=== PATIENT | female | born 1955 | race Caucasian/White ===

== ENCOUNTER 2016-10-18 21:14 | Emergency (ER) | payer OTHER ==
[2016-10-18] MEDS ORDERED: ONDANSETRON 4 MG/2 ML VIAL ONE (21:56)
[2016-10-18] MEDS ORDERED: ONDANSETRON 4 MG/2 ML VIAL IVP ONE (22:00)
[2016-10-18] MEDS ORDERED: NS 1,000 ML IV ONE ×2 (22:01→23:06)
[2016-10-18 22:37] LABS: % IMMATURE GRANULYOCYTES 0.3 % (0.0-1.1); ABSOLUTE IMMATURE GRANULOCYTES 0.03 10^3/uL (0.00-0.10); ADD DIFF? NO; ADD MORPH? NO; ADD SCAN? NO; ATYPICAL LYMPHOCYTE FLAG 20 (0-99); FRAGMENT RBC FLAG 0 (0-99); HEMATOCRIT 35.8 % (38.0-47.0); HEMOGLOBIN 12.3 g/dL (12.6-16.3); LEFT SHIFT FLG 0 (0-99); LIPEMIA HEMOLYSIS FLAG 90 (0-99); MEAN CELL HEMOGLOBIN 29.8 pg (27.9-34.1); MEAN CELL HEMOGLOBIN CONCENTR. 34.4 g/dL (32.4-36.7); MEAN CELL VOLUME 86.7 fL (81.5-99.8); PLATELET CLUMPS FLAG 10 (0-99); PLATELET COUNT 245 10^3/uL (150-400); RED BLOOD CELL COUNT 4.13 10^6/uL (4.18-5.33); RED CELL DISTRIBUTION WIDTH 14.4 % (11.5-15.2)
[2016-10-18 22:48] LABS: COLOR YELLOW; LEUKOCYTE ESTERASE,URINE NEGATIVE (NEGATIVE); NITRITE,URINE NEGATIVE (NEGATIVE)
[2016-10-18 23:01] LABS: ANION GAP 7 mEq/L (8-16); CALCIUM 8.1 mg/dL (8.5-10.4); CARBON DIOXIDE 27 mEq/l (22-31); CHLORIDE 92 mEq/L (97-110); CREATININE 0.6 mg/dL (0.6-1.0); GLOMERULAR FILTRATION RATE > 60; GLUCOSE 86 mg/dL (70-100); POTASSIUM 4.6 mEq/L (3.5-5.2); SODIUM 126 mEq/L (134-144)
--- NOTE | 2016-10-18 23:32 | EDPHY ---
H & P Time Seen by Provider: 10/18/16 22:38 HPI/ROS: CHIEF COMPLAINT: Vomiting HISTORY OF PRESENT ILLNESS: 61-year-old female presents to the emergency department by private vehicle with vomiting. The patient had surgery on her right foot 2 days ago. She has hardware in place and was placed in a posterior splint. She is nonweightbearing. She has a history of chronic neck pain and takes opiate medication for this. On Wednesday, yesterday the patient had difficulty controlling her pain in her right foot. She described as severe. She increased her oxycodone and had a prescription for Dilaudid. She was using 30 mg of oxycodone and 8 mg of Dilaudid p.o. for pain. Her boyfriend who is a physician, states that earlier today she was very confused and he felt that she had too much Narcotic medication in her system. She has not had any narcotic medication since 6 o'clock this morning. This evening she began vomiting. She has eaten very little today. She has not urinated. No known fevers or chills. She feels that the pain in her right foot is well managed with her pain medication. She denies chest pain or difficulty breathing. Denies calf pain. She does have compression hose on her left lower extremity. REVIEW OF SYSTEMS: Constitutional: No fever, no chills. Eyes: No double or blurry vision. ENT: No sore throat. Respiratory: No cough, no shortness of breath. Cardiac: No chest pain. Gastrointestinal: Vomiting as above. No abdominal pain or diarrhea. Genitourinary: No dysuria. Musculoskeletal: No neck or back pain. Skin: No rashes. Neurological: No headache. Past Medical/Surgical History: Chronic neck pain, right foot surgery 2 days ago, left foot surgery 2 months ago. Social History: and lives in [place] Smoking Status: Never smoked Physical Exam: General Appearance: Alert, no distress. Eyes: Pupils equal and round. Extraocular motions are all intact. ENT: Mouth: Mucous membranes dry. Respiratory: No wheezing, rhonchi, or rales, lungs are clear to auscultation. Cardiovascular: Regular rate and rhythm. Gastrointestinal: Abdomen is soft and nontender, no masses, no rebound or guarding, bowel sounds normal. Neurological: Alert and oriented x 3, cranial nerves II through XII grossly intact Skin: Warm and dry, no rashes. Splint on the right foot was not removed. Musculoskeletal: Nontender to palpate along the cervical, thoracic or lumbar spine. Neck is supple. Extremities: Surgical pins noted in the right 2nd and 3rd toes. Ortho Glass posterior splint noted to the right foot that extends up to just below the knee. Psychiatric: Patient is oriented X 3, there is no agitation. Constitutional: Initial Vital Signs Temperature (C) 36.9 C 10/18/16 21:23 Heart Rate 73 10/18/16 21:23 Respiratory Rate 16 10/18/16 21:23 Blood Pressure 156/91 H 10/18/16 21:23 O2 Sat (%) 93 10/18/16 21:23 O2 Delivery Mode Room Air Allergies/Adverse Reactions: No Known Drug Allergies Allergy (Unknown, Verified 10/18/16 21:29) Home Medications: Medication Instructions Recorded Clonazepam 2 mg PO 08/21/14 LORazepam [Ativan (RX)] 1 mg PO 08/21/14 Levothyroxine [Synthroid 25 mcg 25 mcg PO DAILY06 08/21/14 (RX)] Spironolactone [Aldactone 25 MG 25 mg PO DAILY 08/21/14 (RX)] Venlafaxine HCl [Effexor] 25 mg PO 08/21/14 DILAUDID 10/18/16 oxyCODONE CR 15 mg PRN 10/18/16 Medical Decision Making ED Course/Re-evaluation: 61-year-old female presents with multiple episodes of vomiting this evening. She had recent right foot surgery 2 days ago and was having difficulty controlling her pain. Her boyfriend thought that she had too many narcotics on board as she was confused and very somnolent earlier today. This is now resolved. Patient received 2 L of IV normal saline as well as 4 mg of Zofran IV. She was asking for water. Her abdomen is completely benign. She has urinated twice in the emergency department. The patient was tolerating p.o. fluids. She was given 1 mg at IV Dilaudid for pain. She is comfortable being discharged home. Laboratory studies reveal sodium of 126. She has had hyponatremia in the past. She is no longer vomiting. This was discussed with Dr. Lebron, secondary supervising physician, who agrees that the patient be discharged home with close follow-up with her primary care provider to have her laboratory studies recheck. This was discussed with the patient and she verbalized understanding and agreed. Differential Diagnosis: Including but not limited to gastritis, dehydration, acute appendicitis, gastroenteritis, viral syndrome, dehydration, electrolyte abnormality - Data Points Laboratory Results: Laboratory Results 10/18/16 22:15 10/18/16 22:15 10/18/16 10/18/16 22:20 22:15 WBC 11.74 H 10^3/uL (3.80-9.50) RBC 4.13 L 10^6/uL (4.18-5.33) Hgb 12.3 L g/dL (12.6-16.3) Hct 35.8 L % (38.0-47.0) MCV 86.7 fL (81.5-99.8) MCH 29.8 pg (27.9-34.1) MCHC 34.4 g/dL (32.4-36.7) RDW 14.4 % (11.5-15.2) Plt Count 245 10^3/uL (150-400) MPV 9.0 fL (8.7-11.7) Neut % (Auto) 91.3 H % (39.3-74.2) Lymph % (Auto) 4.9 L % (15.0-45.0) [place] % (Auto) 3.1 L % (4.5-13.0) Eos % (Auto) 0.2 L % (0.6-7.6) Baso % (Auto) 0.2 L % (0.3-1.7) Nucleat RBC Rel Count 0.0 % (0.0-0.2) Absolute Neuts (auto) 10.73 H 10^3/uL (1.70-6.50) Absolute Lymphs (auto) 0.58 L 10^3/uL (1.00-3.00) Absolute Monos (auto) 0.36 10^3/uL (0.30-0.80) Absolute Eos (auto) 0.02 L 10^3/uL (0.03-0.40) Absolute Basos (auto) 0.02 10^3/uL (0.02-0.10) Absolute Nucleated RBC 0.00 10^3/uL (0-0.01) Immature Gran % 0.3 % (0.0-1.1) Immature Gran # 0.03 10^3/uL (0.00-0.10) Sodium 126 L mEq/L (134-144) Potassium 4.6 mEq/L (3.5-5.2) Chloride 92 L mEq/L (97-110) Carbon Dioxide 27 mEq/l (22-31) Anion Gap 7 mEq/L (8-16) BUN 5 L mg/dL (7-23) Creatinine 0.6 mg/dL (0.6-1.0) Estimated GFR > 60 Glucose 86 mg/dL (70-100) Calcium 8.1 L mg/dL (8.5-10.4) Urine Color YELLOW Urine Appearance CLEAR Urine pH 5.0 (5.0-7.5) Ur Specific [place] 1.013 (1.002-1.030) Urine Protein NEGATIVE (NEGATIVE) Urine Ketones TRACE H (NEGATIVE) Urine Blood NEGATIVE (NEGATIVE) Urine Nitrate NEGATIVE (NEGATIVE) Urine Bilirubin NEGATIVE (NEGATIVE) Urine Urobilinogen NEGATIVE EU (0.2-1.0) Ur Leukocyte Esterase NEGATIVE (NEGATIVE) Urine Glucose NEGATIVE (NEGATIVE) Medications Given: Discontinued Medications Hydromorphone HCl (Dilaudid) 1 mg IVP EDNOW ONE Stop: 10/18/16 23:52 Last Admin: 10/18/16 23:53 Dose: 1 mg Sodium Chloride (Ns) 1,000 mls @ 0 mls/hr IV ONCE ONE PRN Reason: Wide Open Stop: 10/18/16 22:02 Last Admin: 10/18/16 22:02 Dose: 1,000 mls Sodium Chloride (Ns) 1,000 mls @ 0 mls/hr IV ONCE ONE PRN Reason: Wide Open Stop: 10/18/16 23:07 Last Admin: 10/18/16 23:07 Dose: 1,000 mls Ondansetron HCl (Zofran) 4 mg IVP EDNOW ONE Stop: 10/18/16 22:01 Last Admin: 10/18/16 22:00 Dose: 4 mg Ondansetron HCl (Zofran Odt 4 Mg Prepack#2) 1 btl TAKEHOME EDNOW ONE Stop: 10/19/16 00:14 Last Admin: 10/19/16 00:23 Dose: 1 btl Departure - Departure Clinical Impression: Hyponatremia Vomiting Qualifiers: Vomiting type: unspecified Vomiting Intractability: non-intractable Nausea presence: with nausea Qualifier Code: (R11.2) Nausea with vomiting, unspecified Condition: Good Instructions: Ondansetron (By mouth), Hyponatremia (ED), Acute Nausea and Vomiting (ED) Additional Instructions: Clear liquids and slowly advance diet as tolerated. Continue medications as prescribed for your postoperative foot pain. Recheck your CBC and chemistries with your primary care provider this week. Return to the emergency department if you develop recurring vomiting or if you feel worse in any way. Referrals: Singh Monique MD [Primary Care Provider] - As per Instructions
[2016-10-18 23:44] VITALS: RESP 20; O2SAT 98
[2016-10-18] MEDS ORDERED: HYDROmorphONE/DILAUDID 1 MG/ML SYR ONE (23:49)
[2016-10-18] MEDS ORDERED: HYDROmorphONE/DILAUDID 1 MG/ML SYR IVP ONE (23:51)
[2016-10-19] MEDS ORDERED: ONDANSETRON 4MG PREPACK#2 BTL TAKEHOME ONE (00:13)
[2016-10-19 00:49] VITALS: BP 166/111; PULSE 74; TEMP 98.1
== END 2016-10-19 00:54 | disposition home or self-care (01) ==
DX: E87.1 Hypo-osmolality and hyponatremia (principal); R11.2 Nausea with vomiting, unspecified
CPT/HCPCS: 96374; J1170; J2405

== ENCOUNTER 2016-11-03 02:35 | Emergency (ER) | payer OTHER ==
[2016-11-03 02:43] VITALS: RESP 20
[2016-11-03] MEDS ORDERED: ONDANSETRON 4 MG/2 ML VIAL ONE (02:51)
--- NOTE | 2016-11-03 03:03 | EDPHY ---
H & P Stated Complaint: dog bite to face HPI/ROS: HPI CHIEF COMPLAINT: Dog Bite To Face. HISTORY OF PRESENT ILLNESS: This patient is a 61-year-old female significant past medical history for chronic pain, takes large amounts of oxycodone and Dilaudid and Ambien she presents emergency room after she took her nightly medications she hugged her dog and her dog bit her in the face. She sustained 2 puncture wounds to the upper lip, as well as a 5 cm horizontal laceration to the right cheek. No eye injury. She also complaining of dental pain. Denies any other injuries. Of note she did have a vasovagal episode in the waiting room of the ER. After this she was immediately brought back to ER room 3 placed on a full monitor she did receive a L of fluid and she is resting comfortably she has no complaints except for facial pain. She does take a large amount of narcotics and her Ambien most likely cause of her vagal episode in the waiting room. She did not have a head strike. Past Medical History: Recent right foot surgery, chronic neck pain, chronic opioid use and hyponatremia, hypertension Past Surgical History: Recent right foot surgery Social History: Denies use of illicit drugs however does take opiates chronically Family History: noncontributory ROS REVIEW OF SYSTEMS: A comprehensive 10 point review of systems is otherwise negative aside from elements mentioned in the history of present illness. Exam Constitutional triage nursing summary reviewed, vital signs reviewed, awake/ alert. Eyes normal conjunctivae and sclera, EOMI, PERRLA. HENT Face: 2 puncture wounds located upper left lip, also has a horizontal 5 cm right maxillary cheek laceration, also 2cm left upper lip stellate laceration , moist mucus membranes, no epistaxis, neck supple/ no meningismus, no raccoon eyes. Midface is stable, dentition: Specifically pain over the 10th tooth, Slightly loose. No malocclusion when she bites. Respiratory clear to auscultation bilaterally, normal breath sounds, no respiratory distress, no wheezing. Cardiovascular rate normal, regular rhythm, no murmur, no edema, distal pulses normal. Gastrointestinal soft, non-tender, no rebound, no guarding, normal bowel sounds, no distension, no pulsatile mass. Genitourinary no CVA tenderness. Musculoskeletal no midline vertebral tenderness, full range of motion, no calf swelling, no tenderness of extremities, no meningismus, good pulses, neurovascularly intact. Skin pink, warm, & dry, no rash, skin atraumatic. Neurologic awake, alert and oriented x 3, AAOx3, moves all 4 extremities equally, motor intact, sensory intact, CN II-XII intact, normal cerebellar, normal vision, normal speech. Psychiatric normal mood/affect. Heme/Lymph/Immune no lymphadenopathy. Differential Diagnosis: Includes but is not limited to in a particular order, dog bite to face, facial laceration, multiple puncture wounds, dental fracture, avulsed tooth. Medical Decision Making: Patient here in emergency room received a 1L of fluid and Zofran after she had a vagal event in the waiting room I did numb up her large right maxillary facial laceration we did discuss risk versus benefit of having this close given that to dog bite however patient is requesting that it becomes closed due to the cosmetic issue in how large it is. She understands by closing this laceration on her face that is at further risk of infection. I will start her on Augmentin for this. Her tetanus shot is up-to-date. She will be given a prescription for Augmentin at home to prevent infection from dog bite. She will need to have her sutures removed in 7 days. As for the other 2 puncture sites on her face they will be left open however they will be cleaned here in the emergency room. I do also recommend she follows up with her dentist to evaluate for dental fracture of tooth 10. Re-evaluation: Laceration Repair Procedure: Verbal Consent was obtained, Under sterile conditions, The patient had lidocaine with epinephrine used approximately 7ccs to local anesthetize the Right max Horizontal 5cm Laceration. The wound was copiously irrigated with sterile fluid, the wound was explored for foreign bodies there were none visualized, the wound was explored with a sterile glove to the base. There are no deep structures involved, including no arterial injury. 7 interrupted 6.0 Prolene Sutures were placed in this patient's laceration. She had good close approximation of the wound edges. She Tolerated this well. Laceration Repair Procedure: Verbal Consent was obtained, Under sterile conditions, The patient had lidocaine with epinephrine used approximately 3ccs to local anesthetize the left upper lip Stelate 2cm Laceration. The wound was copiously irrigated with sterile fluid, the wound was explored for foreign bodies there were none visualized, the wound was explored with a sterile glove to the base. There are no deep structures involved, including no arterial injury. 2 interrupted Sutures 6.O Prolene sutures were placed in this patient' s laceration. She had good close approximation of the wound edges. She Tolerated this well. Again I went over strict return precautions with her and her significant other. They understand to return immediately to emergency room if they see any signs of infection this includes redness, drainage, swelling, pus, fever. Please complete Augmentin as Prescribed. Sutures out in 7 days. Source: Patient - Personal History Current Tetanus Diphtheria and Acellular Pertussis (TDAP): Yes - Medical/Surgical History Hx Asthma: No Hx Chronic Respiratory Disease: No Hx Diabetes: No Hx Cardiac Disease: No Hx Renal Disease: No Hx Cirrhosis: No Hx Alcoholism: No Hx HIV/AIDS: No Hx Splenectomy or Spleen Trauma: No Other PMH: medical SAH, anxiety, depression, hypothyroid. tonsillectomy, bilateral knee replacement, right rotator cuff repair, L5 SI spinal fusion, L4 L % spinal fusion, bunionectomy, TMJ surgery - Social History Smoking Status: Never smoked Constitutional: Initial Vital Signs Temperature (C) 37 C 11/03/16 02:41 Heart Rate 104 H 11/03/16 02:41 Respiratory Rate 20 11/03/16 02:41 Blood Pressure 85/68 L 11/03/16 02:41 O2 Sat (%) 94 11/03/16 02:41 O2 Delivery Mode Room Air Allergies/Adverse Reactions: No Known Drug Allergies Allergy (Unknown, Verified 11/03/16 02:39) Home Medications: Medication Instructions Recorded Clonazepam 2 mg PO 08/21/14 LORazepam [Ativan (RX)] 1 mg PO 08/21/14 Levothyroxine [Synthroid 25 mcg 25 mcg PO DAILY06 08/21/14 (RX)] Spironolactone [Aldactone 25 MG 25 mg PO DAILY 08/21/14 (RX)] Venlafaxine HCl [Effexor] 25 mg PO 08/21/14 DILAUDID 10/18/16 oxyCODONE CR 15 mg PRN 10/18/16 Amoxicillin/Clavulanate Pot 875 mg PO BID #14 tab 11/03/16 [Augmentin 875 MG TAB (*)] Medical Decision Making - Data Points Laboratory Results: Laboratory Results 11/03/16 02:50 11/03/16 02:50 Sodium 137 mEq/L (134-144) Potassium 3.9 mEq/L (3.5-5.2) Chloride 100 mEq/L (97-110) Carbon Dioxide 23 mEq/l (22-31) Anion Gap 14 mEq/L (8-16) BUN 8 mg/dL (7-23) Creatinine 0.9 mg/dL (0.6-1.0) Estimated GFR > 60 Glucose 95 mg/dL (70-100) Calcium 9.1 mg/dL (8.5-10.4) Medications Given: Discontinued Medications Sodium Chloride (Ns) 1,000 mls @ 0 mls/hr IV ONCE ONE PRN Reason: Wide Open Stop: 11/03/16 03:09 Last Admin: 11/03/16 03:09 Dose: 1,000 mls Ondansetron HCl (Zofran) 4 mg IVP EDNOW ONE Stop: 11/03/16 03:09 Last Admin: 11/03/16 03:09 Dose: 4 mg Departure - Departure Disposition: Home, Routine, Self-Care Clinical Impression: Laceration Dog bite Qualifiers: Encounter type: initial encounter Qualifier Code: (W54.0XXA) Bitten by dog, initial encounter Condition: Good Instructions: Animal Bite (ED), Laceration (ED), Care For Your Stitches (ED) Additional Instructions: 1. Please keep the wound clean, dry, protected. 2. you may get warm soapy water on this. 3. You have [address] These will need to be removed in 7-8 days. 4. please monitor this closely for infection please complete her antibiotics as prescribed. 5. If you see swelling, redness, drainage, pus, or fever return immediately to the ER for evaluation of your wound. Referrals: Singh Monique MD [Primary Care Provider] - As per Instructions Prescriptions: Amoxicillin/Clavulanate Pot [Augmentin 875 MG TAB (*)] 875 mg PO BID #14 tab
[2016-11-03] MEDS ORDERED: NS 1,000 ML IV ONE (03:08)
[2016-11-03] MEDS ORDERED: ONDANSETRON 4 MG/2 ML VIAL IVP ONE (03:08)
[2016-11-03] MEDS ORDERED: AMOXICILLIN/CLAVULANATE POT 875/125 MG TAB PO ONE (03:31)
[2016-11-03 03:42] LABS: ANION GAP 14 mEq/L (8-16); CALCIUM 9.1 mg/dL (8.5-10.4); CARBON DIOXIDE 23 mEq/l (22-31); CHLORIDE 100 mEq/L (97-110); CREATININE 0.9 mg/dL (0.6-1.0); GLOMERULAR FILTRATION RATE > 60; GLUCOSE 95 mg/dL (70-100); POTASSIUM 3.9 mEq/L (3.5-5.2); SODIUM 137 mEq/L (134-144)
[2016-11-03 04:33] VITALS: BP 107/71; PULSE 66; TEMP 97.3; O2SAT 97
== END 2016-11-03 04:31 | disposition home or self-care (01) ==
PROC: 0CQ0XZZ Repair Upper Lip, External Approach (ICD-10-PCS; principal; 2016-11-03)
DX: S01.411A Laceration without foreign body of right cheek and temporomandibular area, initial encounter (principal); S01.511A Laceration without foreign body of lip, initial encounter; I10 Essential (primary) hypertension; W54.0XXA Bitten by dog, initial encounter
CPT/HCPCS: 96374; J2405

== ENCOUNTER → 2016-11-23 | Outpatient (CLI) | payer OTHER ==
--- NOTE | 2016-11-23 15:57 | DX ---
3 Views Right Foot: Reason for examination: Postoperative follow up to surgery in September. Findings: Postoperative changes of bunionectomy are seen with screws traversing osteotomies of the pr oximal phalanx of the right first toe and the distal end of the first metatarsal. Also plate and mult iple screws transfix the proximal end of the first metatarsal. Orthopedic wires traverse the second a nd third toes and screws are seen in the heads of the second and third metatarsals. No postoperative complication is seen. A splint is in place. Impression: Postoperative changes of the right foot with no immediate complication identified.
== END ==
LOC: BMCIMAGING 13:49
DX: Z09 Encounter for follow-up examination after completed treatment for conditions other than malignant neoplasm (principal); M20.11 Hallux valgus (acquired), right foot; M20.41 Other hammer toe(s) (acquired), right foot; S93.104D Unspecified dislocation of right toe(s), subsequent encounter; M25.374 Other instability, right foot

== ENCOUNTER 2017-04-17 13:50 | Inpatient (IN) | payer OTHER ==
[~2017-04-17 13:50] MED LIST: GADOBUTROL 10 ML VIAL IVP ONE
[2017-04-17] MEDS ORDERED: NS 1,500 ML IV ONE (15:06)
--- NOTE | 2017-04-17 15:09 | EDPHY ---
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 She is sent here from the orthopedist's office after an MRI today that revealed diskitis of help to-L3. She has a history of a lumbar fusion of L4-5 10 years ago. She is followed by the orthopedist office with [facility] now. She saw the PA there this week who ordered an MRI for pain that has been increasing over the last 6 weeks. No fevers. She has had some radiculopathy down the right leg. No weakness numbness or bowel or bladder abnormalities. She has had night sweats but states that this has been present for 10 years because of her hormones. She has not had any recent infections but her does remember slight dysuria about 2 months ago. She does not have any immuno compromising conditions. No recent surgeries or procedures. REVIEW OF SYSTEMS: Constitutional: denies: chills, fever, recent illness, recent injury EENTM: denies: blurred vision, double vision, nose congestion Respiratory: denies: cough, shortness of breath Cardiac: denies: chest pain, irregular heart rate, lightheadedness, palpitations Gastrointestinal/Abdominal: denies: abdominal pain, diarrhea, nausea, vomiting, blood streaked stools Genitourinary: denies: dysuria, frequency, hematuria, pain Musculoskeletal: See HPI Skin: denies: lesions, rash, jaundice, bruising Neurological: denies: headache, numbness, paresthesia, tingling, dizziness, weakness Hematologic/Lymphatic: denies: blood clots, easy bleeding, easy bruising Immunologic/allergic: denies: HIV/AIDS, transplant EXAM: GENERAL: Well-appearing, well-nourished and in no acute distress. HEAD: Atraumatic, normocephalic. EYES: Pupils equal round and reactive to light, extraocular movements intact, sclera anicteric, conjunctiva are normal. ENT: TMs normal, nares patent, oropharynx clear without exudates. Moist mucous membranes. NECK: Normal range of motion, supple without lymphadenopathy or JVD. LUNGS: Breath sounds clear to auscultation bilaterally and equal. No wheezes rales or rhonchi. HEART: Regular rate and rhythm without murmurs, rubs or gallops. ABDOMEN: Soft, nontender, normoactive bowel sounds. No guarding, no rebound. No masses appreciated. BACK: Pain in the upper lumbar region, no tenderness. Pain radiates down her right posterior leg to the mid thigh. No weakness or numbness. No erythema or swelling. EXTREMITIES: Normal range of motion, no pitting or edema. No clubbing or cyanosis. NEUROLOGICAL: Cranial nerves II through XII grossly intact. Normal speech, normal gait. 5/5 strength, normal movement in all extremities, normal sensation PSYCH: Normal mood, normal affect. SKIN: Warm, dry, normal turgor, no visible rashes or lesions. Source: Patient, Family Exam Limitations: No limitations - Personal History Current Tetanus/Diphtheria Vaccine: Yes - Medical/Surgical History Hx Asthma: No Hx Chronic Respiratory Disease: No Hx Diabetes: No Hx Cardiac Disease: No Hx Renal Disease: No Hx Cirrhosis: No Hx Alcoholism: No Hx HIV/AIDS: No Hx Splenectomy or Spleen Trauma: No Other PMH: medical SAH, anxiety, depression, hypothyroid. tonsillectomy, bilateral knee replacement, right rotator cuff repair, L5 SI spinal fusion, L4 L % spinal fusion, bunionectomy, TMJ surgery - Family History Significant Family History: No pertinent family hx - Social History Smoking Status: Never smoked Alcohol Use: Sober Drug Use: None Constitutional: Initial Vital Signs Temperature (C) 36.7 C 04/17/17 13:55 Heart Rate 73 04/17/17 13:55 Respiratory Rate 17 04/17/17 13:55 Blood Pressure 138/91 H 04/17/17 13:55 O2 Sat (%) 96 04/17/17 13:55 O2 Delivery Mode Room Air O2 (L/minute) 2 Allergies/Adverse Reactions: No Known Drug Allergies Allergy (Unknown, Verified 04/17/17 13:53) Home Medications: Medication Instructions Recorded LORazepam [Ativan 2 mg tab] 2 mg PO HS 04/17/17 Levothyroxine [Synthroid 25 mcg 25 mcg PO DAILY06 04/17/17 (*)] QUEtiapine FUMARATE [Seroquel 25 25 mg PO HS 04/17/17 mg (*)] Venlafaxine Xr [Effexor Xr 75MG 150 mg PO DAILY 04/17/17 (*)] oxyCODONE IR [Oxycodone Ir (*)] 15 mg PO Q6H PRN 04/17/17 Medical Decision Making ED Course/Re-evaluation: 3:10 p.m. I discussed the case with Dr. palencia from Infectious Disease. She recommends blood cultures but not initiating antibiotics at this time. She recommends biopsy by interventional radiology are [facility]. She does not recommend lumbar puncture. She will consult. 3:15 p.m. I discussed the case with Dr. Hartley who agrees the above plan. He and his practice do not work with spines. 3:25 p.m. I discussed the case with Dr. Ancelmo Beltrán who will admit to the medical service. We are awaiting callback from interventional Radiology. For p.m. I discussed the case with Dr. Wilner Rodriguez. He will perform interventional Radiology tomorrow and asked that we keep her NPO at midnight. Differential Diagnosis: Partial list of the Differential diagnosis considered include but were not limited to; diskitis, degenerative disc disease, neuropathy and although unlikely based on the history and physical exam, I also considered abscess, tumor. - Data Points Laboratory Results: Laboratory Results 04/17/17 15:15 04/17/17 15:15 04/17/17 15:15 C-Reactive Protein < 5.0 mg/L mg/L (<10.0) Microbiology Results: MICROBIOLOGY 04/17/17 15:15 Blood Blood Culture - Preliminary Medications Given: Discontinued Medications Sodium Chloride (Ns) 1,500 mls @ 3,000 mls/hr 30 ml/kg infuse over 30 min ( 1500 ml) IV EDNOW ONE PRN Reason: Protocol Stop: 04/17/17 15:35 Last Admin: 04/17/17 15:23 Dose: 1,500 mls Oxycodone HCl (Oxycodone Ir) 15 mg PO ONCE ONE Stop: 04/17/17 15:53 Last Admin: 04/17/17 15:56 Dose: 15 mg Oxycodone HCl (Oxycodone Ir) 15 mg PO Q4HRS PRN PRN Reason: Pain, Severe Able to Take PO Stop: 04/27/17 17:04 Last Admin: 04/18/17 10:26 Dose: 15 mg Quetiapine Fumarate (Seroquel) 25 mg PO [facility] Stop: 10/14/17 20:59 Last Admin: 04/17/17 22:36 Dose: 25 mg Departure - Departure Disposition: [facility] Clinical Impression: Diskitis Qualifiers: Spinal region: lumbar Qualified Code(s): M46.46 - Discitis, unspecified, lumbar region Condition: Fair
[2017-04-17 15:36] LABS: % IMMATURE GRANULYOCYTES 0.4 % (0.0-1.1); ABSOLUTE IMMATURE GRANULOCYTES 0.02 10^3/uL (0.00-0.10); ADD DIFF? NO; ADD MORPH? NO; ADD SCAN? NO; ATYPICAL LYMPHOCYTE FLAG 20 (0-99); FRAGMENT RBC FLAG 0 (0-99); HEMATOCRIT 42.1 % (38.0-47.0); HEMOGLOBIN 14.2 g/dL (12.6-16.3); LEFT SHIFT FLG 0 (0-99); LIPEMIA HEMOLYSIS FLAG 80 (0-99); MEAN CELL HEMOGLOBIN 29.1 pg (27.9-34.1); MEAN CELL HEMOGLOBIN CONCENTR. 33.7 g/dL (32.4-36.7); MEAN CELL VOLUME 86.3 fL (81.5-99.8); MEAN PLATELET VOLUME 8.7 fL (8.7-11.7); PLATELET CLUMPS FLAG 0 (0-99); PLATELET COUNT 318 10^3/uL (150-400); RED BLOOD CELL COUNT 4.88 10^6/uL (4.18-5.33); RED CELL DISTRIBUTION WIDTH 14.5 % (11.5-15.2)
[2017-04-17 15:42] LABS: APTT 28.4 SEC (23.0-38.0); INR 0.99 (0.83-1.16)
[2017-04-17 15:47] LABS: ANION GAP 11 mEq/L (8-16); BILIRUBIN,TOTAL 0.9 mg/dL (0.1-1.4); CALCIUM 9.2 mg/dL (8.5-10.4); CARBON DIOXIDE 23 mEq/l (22-31); CHLORIDE 98 mEq/L (97-110); CREATININE 0.8 mg/dL (0.6-1.0); GLOMERULAR FILTRATION RATE > 60; GLUCOSE 82 mg/dL (70-100); POTASSIUM 4.7 mEq/L (3.5-5.2); SODIUM 132 mEq/L (134-144)
[2017-04-17] MEDS ORDERED: oxyCODONE IR 15 MG TAB PO ONE (15:52)
[2017-04-17] MEDS ORDERED: oxyCODONE IR 5 MG TAB ONE (15:53)
[2017-04-17] MEDS ORDERED: ONDANSETRON DISINTEGRATING 4 MG TAB PO PRN (17:02)
[2017-04-17] MEDS ORDERED: ACETAMINOPHEN 325 MG TAB PO PRN (17:02)
[2017-04-17] MEDS ORDERED: IBUPROFEN 200 MG TAB PO PRN (17:02)
[2017-04-17] MEDS ORDERED: ONDANSETRON 4 MG/2 ML VIAL IVP PRN (17:02)
--- NOTE | 2017-04-17 18:05 | GHP ---
[f rep st] HISTORY AND PHYSICAL DATE OF ADMISSION: 04/17/2017 HISTORY OF PRESENT ILLNESS: The patient is a pleasant 62-year-old female with minimal past medical history other than remote lumbar spine fusion at L4-L5,g who has been seeing Dr. Hartley as an out patient for increasing back pain as well as some pain radiating around her hip. It has been going o n about 6 weeks. She had an outpatient MRI which showed diskitis and she was referred to the emerge ncy department for further evaluation. She has had some night sweats but she attributes this to ongoing menopausal symptoms. She has not h ad fever or chills. She does not use IV drugs. She went to the dentist a couple of months ago for a routine cleaning. She does state that she has exposed roots. She has not had nausea, vomiting, f ever, or chills. She has a fair amount of pain in her back, has been getting worse. It has been fuchs mpering her lifestyle. She has been taking, sounds like Tylenol ibuprofen for it. After driving, she has a lot of pain around the proximal thigh. She has not had urinary or bowel in continence. No other B symptoms. No weight loss. REVIEW OF SYSTEMS: Complete 10-point review of systems conducted, negative except as noted in the H PI. PAST MEDICAL HISTORY: 1. Lumbar spine disease. 2. Depression. ALLERGIES: No known drug allergies. HOME MEDICATIONS: Effexor, levothyroxine, lorazepam, spironolactone, venlafaxine. She takes spiron olactone for acne. SOCIAL HISTORY: She drinks a couple glasses of wine in the evenings. She does not smoke cigarettes . FAMILY HISTORY: Reviewed and unremarkable. PHYSICAL EXAMINATION: VITAL SIGNS: Temp 36.6, blood pressure 154/101, pulse 59, breathing 12 times a minute, 94% on room air. GENERAL: No acute distress. Sclerae anicteric. Oropharynx clear. Mu cous membranes are moist. NECK: Supple without lymphadenopathy or JVD. LUNGS: Clear to auscultat ion bilaterally. HEART: S1, S2. ABDOMEN: Soft, nontender, nondistended. LOWER EXTREMITIES: No edema. Calves nontender. SKIN: Without rash. NEUROLOGIC: Grossly nonfocal. I did not do a stra ight leg raise, it was positive in the emergency department. LABS: White count 5, hematocrit 42, platelets 318,000. Coags normal. Venous lactate 0.8. Sodium 132 potassium 4.7, chloride 98, bicarb 22, BUN 14, creatinine 0.8, glucose 82. I discussed the case with Dr. Rajat Schaeffer. Lumbar spine MRI shows suspicious for diskitis at the L2-L3 level with right L2-L3 foraminal encroachment secondary to enhancing disk protrusion. ASSESSMENT/PLAN: 62-year-old female with possible diskitis. 1. Diskitis: The MRI is suggestive of diskitis. She really does not have any infectious symptoms. The plan now is blood cultures have been drawn. She is going to get a biopsy today, and will reac t to that information as it becomes available. It is probably reasonable to have a neurosurgeon see her while she is in the hospital. As of Wednesday at 5 p.m., I have not called them. 2. Hyponatremia: This is mild. 3. Daily wine use: I have written her for a glass of wine at night if she is interested. 4. Prophylaxis: Pharmacologic prophylaxis indicated if in the hospital for a prolonged period of t yvonne. At this point in time, will just go with SCDs. 5. Pain: Will give her p.r.n. oxycodone. 6. Depression: Will continue her medicines once they have been reconciled. /[id number]/MODL
[2017-04-17 18:27] LABS: COLOR PALE YELLOW; LEUKOCYTE ESTERASE,URINE NEGATIVE (NEGATIVE); NITRITE,URINE NEGATIVE (NEGATIVE)
[2017-04-17] MEDS: WHITE WINE 120 ML BOTTLE PO SCH (18:48)
[2017-04-17] MEDS ORDERED: NS 1,000 ML IV SCH (20:30)
[2017-04-17] MEDS ORDERED: QUEtiapine FUMARATE 25 MG TAB PO SCH (21:00)
[2017-04-17] MEDS ORDERED: LORAZEPAM 2 MG PO SCH (21:00)
[2017-04-17] MEDS: oxyCODONE IR 15 MG TAB PO PRN (21:47)
[2017-04-17] MEDS: LORazepam 1 MG TAB PO SCH (21:48)
[2017-04-17] MEDS: QUEtiapine FUMARATE 25 MG TAB PO SCH (22:59)
[2017-04-18] MEDS: LEVOTHYROXINE 25 MCG TAB PO SCH (05:50)
[2017-04-18] MEDS ORDERED: LEVOTHYROXINE 25 MCG TAB PO SCH (06:00)
[2017-04-18] MEDS: oxyCODONE IR 15 MG TAB PO PRN ×3 (10:26→21:32)
[2017-04-18 10:32] LABS: HEMATOCRIT 43.8 % (38.0-47.0)
[2017-04-18] MEDS ORDERED: fentaNYL 100 MCG/2 ML INJ ONE ×2 (10:42→11:41)
[2017-04-18] MEDS ORDERED: MIDAZOLAM 2 MG/2 ML VIAL ONE (10:43)
[2017-04-18 10:51] LABS: ALBUMIN 4.1 g/dL (3.5-5.0); BILIRUBIN,TOTAL 0.9 mg/dL (0.1-1.4); BILIRUBIN-CONJUGATED 0.4 mg/dL (0.0-0.5); BILIRUBIN-UNCONJUGATED 0.5 mg/dL (0.0-1.1); TOTAL PROTEIN 6.6 g/dL (6.3-8.2)
[2017-04-18] MEDS: VENLAFAXINE XR 75 MG CAP PO SCH ×3 (10:52→18:12)
[2017-04-18] MEDS ORDERED: LIDOCAINE 1% 300 MG/30 ML SDV ONE (10:54)
[2017-04-18] MEDS ORDERED: IOPAMIDOL (ISOVUE-M 300) 15 ML VIAL ONE (10:54)
--- NOTE | 2017-04-18 11:27 | GCON ---
[f rep st] CONSULTATION INFECTIOUS DISEASE CONSULTATION DATE OF CONSULTATION: 04/18/2017 REFERRING PHYSICIAN: Ryan Beltrán MD REASON FOR CONSULTATION: Possible diskitis. CHIEF COMPLAINT: Back pain. HISTORY OF PRESENT ILLNESS: This is a 62-year-old female with a past medical history sign ificant for hypothyroidism, anxiety, depression, previous history of lumbar spine surgery, who has b een complaining of back pain for around 8 weeks. She has intermittent chronic back pain from her pr evious surgeries; however, she felt that this was different. It was more bandlike across her lower back. She states she denies any fevers or shaking chills at the time or onset of this, as well as p rior to the onset of her back pain. She said once she started to get back pain she saw a physical t herapist, who started to do some dry needling in her buttocks region, which did not help. She denie s any numbness or tingling down her legs, although she does have pain that radiates to both her fron t thighs, mostly right greater than left. She denies any muscle weakness or bowel or bladder incont inence. She denies any previous history of skin infections. She did have dysuria about 1-1/2 to 2 months ago, for which she immediately took Pyridium and her symptoms resolved. She did not take ant ibiotics at that time. She denies any CVA tenderness. She denies any recent bouts of diarrheal ill ness or vomiting. She does not drink raw milk or unpasteurized cheeses. She has no close contact w ith farm animals. She did acquire a new puppy about 5 weeks ago that occasionally does nip at her, but she states that she has not had any wounds from that. Her boyfriend has a cat whose nails are a ll trimmed down, so she reports no scratches or bites from the cat. Back in September of 2016 she traveled to [facility] for 1 week just the week prior to [place]. She st ates that she was in a resort-like accommodation, was not ill while she was there or upon return. S he did not do any water sports where she sustained any injuries. When she returned in October, she ended up having a redo foot surgery, where she has some hardware in place. She denies any postopera tive infections related to that. Also in October she ended up having a dog bite to her cheek and li p. She had a dog that was a rescue dog. She believes it had all its vaccinations. She was seen in the ER and had sutures placed at the time. She denies any infections related to that. She had a d ental cleaning done earlier this year as well. She states that she is always usually given amoxicil shital before she has dental cleaning or dental work done. She does state that over the past month she has noticed a small brown spot on her upper right gum line that she thought was initially stuck lucas d, but she is unable to get it out of there. She does not complain of any pain related to it. Due to ongoing back pain she had an MRI done yesterday, and it showed possible diskitis involving L2 -L3. She had gone home after the study but was advised to come back to the ER after the study was r ead as such. In the ER, they did basic labs and did cultures on her, along with a urinalysis. Anti biotics were held. Infectious Disease is now consulted for further evaluation and opinion regarding the above. REVIEW OF SYSTEMS: GENERAL: Denies any fevers or shaking chills. No recent weight loss as well. HEAD: No headaches. EYES: No changes in vision. ENT: No sore throat, difficulty swallowing, ear pain or ear drainage. CARDIOVASCULAR: Denies any chest pain or rapid heartbeat. RESPIRATORY: De nies any shortness of breath, cough, or sputum production. ABDOMEN: No nausea, vomiting, abdominal pain, or diarrhea. : No dysuria or hematuria. No flank pain. Back pain as stated above. MUSC ULOSKELETAL: Does have chronic joint pains in general, but nothing acutely increased recently. No lower extremity edema. SKIN: No rashes or open wounds. Rest of 10-point review of systems essenti ally negative except as above. PAST MEDICAL HISTORY: Significant for hypothyroidism, anxiety, depression, adult acne. PAST SURGICAL HISTORY: Significant for L4-L5 spine surgery with hardware in place, L5-S1 fusion. M ultiple foot surgeries, particularly on the right foot, with hardware in place. She has had bilater al total knee replacements as well. SOCIAL HISTORY: She is a nonsmoker. She drinks alcohol socially. Denies any illicit drug usage. 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 She has an adult daughter who lives with her. Her boyfriend is a retired family practice physician. She traveled to [facility] for 1 week the k prior to 2015. Stayed in a resort and did not get ill while she was there or upon ret urn. Other than that, no other recent international trips. Does not drink unpasteurized milk or ch eeses, no raw milk. New close contact with farm animals, other than the dog bite above. She has an other new puppy of 5 weeks' duration that nips at her, with no sustained injuries. Her boyfriend fuchs s a cat whose nails are trimmed, and has not sustained any scratches or bites from the cat. She alexandra s not live downwind from a farm or a horse farm. FAMILY HISTORY: Significant for coronary artery disease, stroke. Her mother is 92 and is still ali ve. Her father at the age of 63, although she states he was an alcoholic and a smoker. There is also hypothyroidism in the family. PHYSICAL EXAMINATION: VITAL SIGNS: Temperature current 36.6, pulse is 62, blood pressure 120/81, s aturations are 95% on room air. Respiratory rate is 14. GENERAL: Patient is resting in bed, in no acute respiratory distress. Awake, alert, and oriented x3. HEENT: Head is normocephalic, atrauma tic. Pupils are equal, round, reactive to light. No conjunctival petechiae. Oropharynx: She has 1 small brownish little spot on the upper right side gum line. It is nontender to palpate. No orop haryngeal thrush. No oral ulcers. She has some mild erythema on the posterior pharynx. CARDIOVASC ULAR: S1, S2. Regular rate and rhythm. She has an intermittent S3 heard. She also has a systolic murmur appreciated, 3/6 in nature. RESPIRATORY: Clear to auscultate bilaterally. No rhonchi or r ales appreciated. ABDOMEN: Positive bowel sounds in all quadrants. No organomegaly appreciated. Nontender, nondistended. EXTREMITIES: No lower extremity edema. MUSCULOSKELETAL: No obvious join t effusions or pain on palpation of the joints. Bilateral knee surgeries noted with incision sites well healed. BACK: Nontender to palpation of the back. Previous spine surgery. Incision site is intact without erythema, warmth, or tenderness on palpation. SKIN: No obvious breaks in the skin. No obvious open wounds. LABORATORY DATA: White blood cell count 5.1, hemoglobin 14.2, platelets are 318, neutrophil count i s 64%. INR 0.9. Lactic acid 0.8. Sodium 132, potassium 4.7, chloride 98, bicarb 23, BUN is 14, cr eatinine 0.8. I added a C-reactive protein to yesterday's blood labs and that has come back at less than 5. Urinalysis unremarkable. Blood cultures x2 pending. Imaging results have been reviewed b y me and as stated above. Findings suspicious for diskitis at L2-L3 with right L2, L3, L4 foraminal encroachment secondary to enhancing disk protrusion. ASSESSMENT: 1. Possible L2-L3 diskitis. 2. Murmur, which is new. PLAN: For now, would continue to hold off on any antibiotics. She is to get a biopsy done by IR to day and would have them send for regular cultures, AFB, fungal. Her CRP was added to yesterday's bl ood work, which has resulted as normal. Would recommend a 2D echo to further evaluate new murmur, e specially in light of some oral changes along her gum line. Plan of care was discussed at length with the patient, including the possible need for empiric antib iotics if the cultures are negative versus a second biopsy and a planned course of antibiotics to th e degree of 6-8 weeks. Also discussed the plan of care with her boyfriend, who the patient requeste d to be included in the plan of care. I thank you very much for the opportunity to care for your patient in consultation. /[id number]/MODL
[2017-04-18] MEDS ORDERED: BUPIVACAINE 0.5% 30 ML SDV ONE (12:33)
--- NOTE | 2017-04-18 12:50 | HOSPPROG ---
Hospitalist Progress Note Assessment/Plan: 62y female with c/o back pain. This is my first encounter, chart reviewed. #Possible diskitis per MRI D/W Dr Arroyo plan for bx in IR today BC pending #Daily wine cont here #Pain controlled with meds #Hyponatremia minimal #Fluid shift puffy add labs #Dispo unclear given need for further dx follow BC cont pain control Subjective: Feeling puffy. No pain currently. Objective: Vital Signs Temp Pulse Resp BP Pulse Ox 36.6 C 62 14 120/81 H 95 04/18/17 08:00 04/18/17 08:00 04/18/17 08:00 04/18/17 08:00 04/18/17 08:00 Laboratory Results 04/18/17 10:19 04/17/17 04/18/17 04/19/17 05:59 05:59 05:59 Intake Total 1500 Output Total 700 Balance 800 PT 13.0 SEC (12.0-15.0) 04/17/17 15:15 INR 0.99 (0.83-1.16) 04/17/17 15:15 - Physical Exam Constitutional: no apparent distress, appears nourished, not in pain Eyes: PERRL, anicteric sclera, EOMI Ears, Nose, Mouth, Throat: moist mucous membranes, hearing normal, ears appear normal Cardiovascular: edema, No JVD, No tachycardia Respiratory: no respiratory distress, no rales or rhonchi, reduced air movement Gastrointestinal: normoactive bowel sounds, No tenderness, No ascites Skin: warm, normal color, No mottled Musculoskeletal: full muscle strength, normal joint ROM, no joint effusions Neurologic: AAOx3 Psychiatric: interacting appropriately, not anxious, not encephalopathic ICD10 Worksheet Patient Problems: Problems Problem Status Onset Back pain Acute - ICD10 Problem Qualifiers (1) Back pain Qualifiers: Back pain location: low back pain Chronicity: acute Back pain laterality : unspecified Sciatica presence: S Sciatica laterality: S
[2017-04-18] MEDS: WHITE WINE 120 ML BOTTLE PO SCH (18:12)
[2017-04-18] MEDS: QUEtiapine FUMARATE 25 MG TAB PO SCH (22:54)
[2017-04-18] MEDS: LORazepam 1 MG TAB PO SCH (22:54)
[2017-04-19] MEDS: LEVOTHYROXINE 25 MCG TAB PO SCH (05:31)
[2017-04-19] MEDS: VENLAFAXINE XR 75 MG CAP PO SCH (08:34)
[2017-04-19] MEDS: oxyCODONE IR 15 MG TAB PO PRN (08:35)
[2017-04-19 12:09] VITALS: BP 150/94; PULSE 69; RESP 20; TEMP 98.9; O2SAT 93
--- NOTE | 2017-04-19 14:28 | ECHO ---
[id number] + + [address] : : [place] [address] : : [phone] + Adult Echocardiographic Report + --------+ :Name: FLORINA COMER HStudy Date: 04/18/2017 01:52 PM : : Hospital Admission Number: [id number] Locat ion: 350: :: 1955 Gender: Female Height: 64 in : :Age: 62 yrs Race: WH Weight: 110 l b : :Reason For Study: Eval Valves, New murmur : : BSA: 1.5 mete rs2 : :History: Possible diskitis L2/3 : + --------+ MMode/2D Measurements \T\ Calculations IVSd: 0.93 cm LVIDd: 4.4 cm FS: 40.1 % Ao root diam: 3.1 cm LVPWd: 0.99 cm LVIDs: 2.6 cm EDV(Teich): 86.0 ml ACS: 1.7 cm ESV(Teich): 24.9 ml LA dimension: 3.6 cm EF(Teich): 71.0 % Normal Measurement Values: + + :LVIDd (3.5-5.7cm) IVSd (0.6-1.1cm) LVPWd (0.6-1.1cm) Aortic Root (2.0-3.7cm)Left Atrium (1.5-4.0cm): :LV Vol(d) (76-115ml) LV Vol(s) (29-48ml) Ejec Fraction (50-65%)PV Ray (0.6- 1.2m/s) TV Ray (0.4-1.0m/s) : :MV E Ray (0.8-1.0m/s)MV A Ray (0.3-1.0m/s)LVOT Ray (0.7-1.2m/s) Asc Ao Ray ( 0.9-1.8m/s) : + + Doppler Measurements \T\ Calculations MV E max ray: Ao V2 max: AI max ray: LV V1 max: 69.6 cm/sec 133.0 cm/sec 276.9 cm/sec 82.4 cm/sec MV A max ray: Ao max PG: AI max P.7 mmHg LV V1 max P.9 cm/sec 7.1 mmHg AI dec slope: 2.7 mmHg MV E/A: 1.5 121.7 cm/sec2 AI P1/2t: 666.2 msec PA V2 max: TR max ray: 63.8 cm/sec 270.1 cm/sec PA max PG: TR max P.6 mmHg 29.2 mmHg RAP systole: 5.0 mmHg RVSP(TR): 34.2 mmHg Left Ventricle The left ventricle is normal in size. There is normal left ventricular wall thickness. The left ventricular ejection fraction is normal. There is Doppler evidence for diastolic dysfunction. Ejection Fraction = 71%. The left ventricular ejection fraction is calculated at 71.0 %. The left ventricular wall motion is normal. Right Ventricle The right ventricle is normal in size and function. Atria The left atrial size is normal. Mitral Valve The mitral valve is normal. There is trace mitral regurgitation. Tricuspid Valve Normal tricuspid valve. There is trace to mild tricuspid regurgitation. Right ventricular systolic pressure is normal. Aortic Valve The aortic valve is normal in structure and function. The aortic valve opens well. There is no aortic stenosis. Trace aortic regurgitation. Pulmonic Valve The pulmonic valve is not well visualized. There is no pulmonic valvular regurgitation. Great Vessels The aortic root is normal size. Pericardium/Pleural There is no pericardial effusion. Conclusion A complete two-dimensional transthoracic echocardiogram was performed (2D, M-mode, Doppler and color flow Doppler). There is no evidence of a mass or vegetation. This does not rule out endocarditis. (1) Left ventricular systolic ejection fraction was normal (>70%) - normal wall motion (2) No left ventricular hypertrophy (3) Diastolic dysfunction was present (4) Normal right ventricular size and function (5) Normal atrial dimensions (6) Physiologic mitral regurgitation (7) Trileaflet aortic valve without sclerosis. Trace insufficiency was noted (8) Trace/mild tricuspid regurgitation - RVSP was normal (9) Poor visualization of the pulmonic valve without insufficiency noted (10) No comparison echocardiograms Final Reading Physician: Peña Jason, Alex signed on 04/19/2017 02:27 PM Ordering Physician: Sada Arroyo Performed By: Christoph Bazan, CS
--- NOTE | 2017-04-19 14:33 | GDS ---
[f rep st] DISCHARGE SUMMARY DISCHARGE DIAGNOSES: 1. Acute on chronic back pain. 2. Abnormal MRI. 3. Hyponatremia. STUDIES AND PROCEDURES DONE: 1. Lumbar spine MRI. 2. Bone biopsy. CONSULTATIONS: 1. Infectious Disease. 2. Neurosurgery. PHYSICAL EXAMINATION: GENERAL: The patient is alert. VITAL SIGNS: Afebrile at 37.2, pulse is 69, respiratory rate is 20, blood pressure is 150/94. She is saturating 93% on room air. I have seen and evaluated the patient on the day of discharge. HOSPITAL COURSE: Patient is a 62-year-old female who presented to the emergency room with complaint s of back pain. She was evaluated and diagnosed with: 1. Acute on chronic back pain. During this hospital evaluation, the patient did receive an MRI of her lumbar spine. MRI indicated suspicious diskitis at L2-L3 as well as disk protrusion at L2-L3. She did receive an infectious disease consultation as well as a neurosurgery consultation. A bone b iopsy has been performed during this hospital course, and she has remained off antibiotic therapy du ring this hospitalization. Her laboratory values are within normal limits with no aggressive indica tion for diskitis. After reviewing the case with both Neurosurgery as well as Infectious Disease, i t is felt that she most likely does not have an infectious process, and will be discharged from the hospital to follow up in the outpatient setting. She will follow up at [facility] as well as Dr. Mcknight of neurosurgery. 2. Pain. This is acute on chronic. She will continue therapies in the outpatient setting and cont inue treatment with Dr. Mcknight. 3. Hyponatremia. This is stable. 4. Hypertension. Patient states that she has no history of hypertension. Does not wish to be init iated on antihypertensive medication during this hospital course. She will follow up with her prima care physician in the outpatient setting. DISPOSITION: Patient will be discharged home independently. Followup will be with the [facility], as well as Dr. Mcknight of neurosurgery and Dr. Singh Monique, her primary care physician. DISCHARGE MEDICATIONS: Please refer to EMR form. I have not provided the patient with any prescrip tions at the time of disposition. I spent greater than 35 minutes in the care, coordination, and management of this patient's discharg e. /[id number]/MODL
--- NOTE | 2017-04-19 17:59 | GCON ---
[f rep st] CONSULTATION NEUROSURGICAL CONSULTATION CHIEF COMPLAINT: Back pain. HISTORY OF PRESENT ILLNESS: The patient is a 62-year-old female, who has a history of a previous L4-[address] Nuñez, and then an L4-5 instrumentation and fusion by Dr. Partida. She developed low back pain with pain in her right hip and thigh that was recently exacerbated. She has a longstanding history of back pain that has been off and on. She went to urgent care and an MRI of the lumbar spine was obtained. This showed a questionable diskitis at the L2-3 level and she was transferred to [facility]. There, she had some serological studies performed, as well as bone biopsy by Interventional Radiology on April 18, 2007. Neurosurgical consultation was requested. She currently complains of ongoing back pain with pain in her right hip and right thigh. She does not have any left leg pain. She is not having any weakness, paresthesias, ataxia, bowel or bladder problems. She denies any fevers or chills. PAST MEDICAL HISTORY: 1. Hypothyroidism. 2. Anxiety. 3. Depression. 4. Adult acne. PAST SURGICAL HISTORY: 1. Includes L4-5 instrumentation and fusion. 2. Multiple foot surgeries. MEDICATIONS: Prior to admission were Synthroid, Ativan, oxycodone, Seroquel, and Effexor. ALLERGIES: No known drug allergies. FAMILY HISTORY: Patient has no family history of spinal problems. SOCIAL HISTORY: The patient is and does have a grown daughter. She does drink alcohol. Denies smoking and denies recreational drug use. REVIEW OF SYSTEMS: Negative. PHYSICAL EXAMINATION: GENERAL: The patient is a 62-year-old female, walking around in her hospital room in no apparent distress. HEENT: Negative to drainage. EXTREMITIES: [place], warm, and dry. NEUROLOGICAL: Patient is awake, alert, oriented x4. Pupils equal, round, reactive to light. Extraocular motions are intact. There is no evidence of facial droop. Tongue and uvula are midline. Spinal accessory muscles are intact. Her motor strength is physiologic at 5/5 in her arms and legs. Her sensation is grossly intact to light touch in her arms and legs. Deep tendon reflexes are 1+/4 throughout. DIAGNOSTIC STUDIES: MRI of the lumbar spine from [facility] PACS shows postoperative changes from the L4-5 decompression and fusion. At L2- 3 there is moderate degeneration and collapse of the disk space with Modic changes. There is some postcontrast enhancement. There is no increased disk space signal on the L2-3 level concerning for diskitis. LABORATORY DATA: Her white blood cell count from 04/17/2017 is 5.12. Her ESR is 5 and CRP is less than 5. Microbiology data from the blood cultures and bone cultures from 04/17/2017 and 04/18/2017 all showed no growth to date. 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 She does not appear to have any evidence of diskitis with negative cultures, negative inflammatory markers, and a normal white blood cell count. She is neurologically stable. PLAN: All the above discussed in detail with the patient, as well as Dr. Mcknight , who saw this patient in the hospital as well. At this point in time, the patient is ready for discharge. She can follow up with [facility] in clinic in approximately 2 weeks to follow up her low back pain and see how she progresses. She is encouraged to contact [facility] if she has any questions or concerns prior to her clinic followup appointment. /[id number]/MODL MTDD
== END 2017-04-19 13:45 | disposition home or self-care (01) | DRG 478 ==
LOC: F3N 16:18 → OBSVTOIN 17:05
PROVIDERS: ADMIT Internal Medicine; ATTEND Internal Medicine
DX: M51.26 Other intervertebral disc displacement, lumbar region (principal); E87.1 Hypo-osmolality and hyponatremia; G89.29 Other chronic pain; I10 Essential (primary) hypertension; F32.9 Major depressive disorder, single episode, unspecified; E03.9 Hypothyroidism, unspecified
CPT/HCPCS: A9585; J2250; J3010; Q9967

== ENCOUNTER 2018-11-01 15:42 | Inpatient (IN) | payer BC, OTHER ==
[2018-11-01] MEDS ORDERED: ONDANSETRON 4 MG/2 ML VIAL IVP ONE (16:15)
[2018-11-01] MEDS ORDERED: NS 500 ML IV ONE (16:15)
--- NOTE | 2018-11-01 16:20 | EDPHY ---
H & P Stated Complaint: epigastric pain radiating to lwer abd since this am, nausea Time Seen by Provider: 11/01/18 16:05 HPI/ROS: CHIEF COMPLAINT: Epigastric pain, periumbilical pain HISTORY OF PRESENT ILLNESS: 63-year-old female via private vehicle complaining of abdominal pain in the epigastric region and periumbilical region since this morning. Pain does not radiate to her back or flank. Positive vomiting. Positive nausea. No trauma. She typically has 1 bowel movement per week. She had a normal bowel movement this morning with no melena hematochezia, no hard or unusual stool. No chest pain. No dyspnea. No URI symptoms. No cough. PRIMARY CARE PROVIDER: Dr. Phuc Ji REVIEW OF SYSTEMS: 10 systems reviewed and negative with the exception of the elements mentioned in the history of present illness PAST MEDICAL & SURGICAL HISTORY: . Depression. Hypothyroid. Tonsillectomy. Bilateral total knee arthroplasty. TMJ surgery. Spinal surgery. Right shoulder surgery. SOCIAL HISTORY:Nonsmoker. PHYSICAL EXAM (Prior to examination, patient consented to physical exam, hands were washed and my usual and customary physical exam procedures followed) 1) GENERAL: Well-developed, well-nourished, alert and oriented. Appears uncomfortable. 2) HEAD: Normocephalic, atraumatic 3) HEENT: Pupils equal, round, reactive to light bilaterally. Sclera anicteric. Nasopharynx, oropharynx, clear, no lesions. Dry Mucous membranes. 4) NECK: Full range of motion, no meningeal signs. 5) LUNGS: Clear auscultation bilaterally, no wheezes, no rhonchi, no retractions. 6) HEART: Regular rate and rhythm, no murmur, no heave, no gallop. 7) ABDOMEN: guarding abdomen, tender to palpation periumbilical and epigastrium. No palpable or pulsatile mass. Tender to palpation left lower quadrant. Tender to palpation right lower quadrant., negative Mccauley's, negative peritoneal sign, 8) MUSCULOSKELETAL: Moving all extremities, no focal areas of tenderness, no obvious trauma. No peripheral edema or discoloration. 9) BACK: No CVA tenderness, no midline vertebral tenderness, no fluctuance, no step-off, no obvious trauma, no visual or palpable abnormality. 10) SKIN: No rash, no petechiae. 11) Psychiatric: Patient is oriented X 3, there is no agitation. DIFFERENTIAL DIAGNOSIS: In no particular order, including but not limited to biliary colic, cardiac etiology, pulmonary etiology cholecystitis, peptic ulcer disease, pancreatitis, and gastroenteritis. This is a partial list of diagnoses considered. These considerations are based on history, physical exam, past history and reassessment. - Medical/Surgical History Hx Asthma: No Hx Chronic Respiratory Disease: No Hx Diabetes: No Hx Cardiac Disease: No Hx Renal Disease: No Hx Cirrhosis: No Hx Alcoholism: No Hx HIV/AIDS: No Hx Splenectomy or Spleen Trauma: No Other PMH: medical SAH, anxiety, depression, hypothyroid. tonsillectomy, bilateral knee replacement, right rotator cuff repair, L5 SI spinal fusion, L4 L % spinal fusion, bunionectomy, TMJ surgery - Social History Smoking Status: Never smoked Constitutional: Initial Vital Signs Temperature (C) 36.5 C 11/01/18 15:46 Heart Rate 64 11/01/18 15:46 Respiratory Rate 16 11/01/18 15:46 Blood Pressure 90/61 L 11/01/18 15:46 O2 Sat (%) 100 11/01/18 15:46 O2 Delivery Mode Room Air Allergies/Adverse Reactions: No Known Drug Allergies Allergy (Unknown, Verified 04/17/17 13:53) Home Medications: Medication Instructions Recorded LORazepam [Ativan 2 mg tab] 2 mg PO HS 04/17/17 Levothyroxine [Synthroid 25 mcg 25 mcg PO DAILY06 04/17/17 (*)] QUEtiapine FUMARATE [Seroquel 25 25 mg PO HS 04/17/17 mg (*)] Venlafaxine Xr [Effexor Xr 75MG 150 mg PO DAILY 04/17/17 (*)] oxyCODONE IR [Oxycodone Ir (*)] 15 mg PO Q6H PRN 04/17/17 Acetaminophen [Tylenol 325mg (*)] 650 mg PO Q4HRS PRN #0 tab 04/19/17 Ibuprofen [Motrin (*)] 400 mg PO Q4HRS PRN #0 tab 04/19/17 Levothyroxine [Synthroid 25 mcg 25 mcg PO DAILY06 tab 04/19/17 (*)] Medical Decision Making - Diagnostics Imaging Results: Imaging Impressions Chest X-Ray 11/01/18 16:15 Impression: Negative. No acute process. Images reviewed myself ED Course/Re-evaluation: 4:19 p.m.: Will obtain diagnostic studies including troponin, creatinine, plan on CT imaging, will obtain EKG. Care of patient under supervision of secondary supervising physician Dr Dobbins with whom I discussed case. 4:42 p.m.: Patient's point of care sodium is 126. Initial IV fluids have been stopped. Awaiting further laboratory studies. Old medical records. 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 530 p.m.: CT images interpreted by radiologist conveyed myself at this time positive for possible volvulus or strangulated internal hernia. 5:35 p.m.: Spoke with the patient regarding her imaging results possibly volvulus, possible strangulated internal hernia per Radiology interpretation. She remains NPO since 10:30 a.m. Today. 5:39 p.m.: Consultation with Dr. Sudheer Gillespie who request the hospitalist service consult as well regarding patient's hyponatremia. 5:40 p.m.: Consultation with hospitalist Dr. Carter Contreras who will consult regarding patient's hyponatremia - Data Points Laboratory Results: Laboratory Results 11/01/18 16:20 11/01/18 16:20 11/01/18 11/01/18 11/01/18 16:28 16:26 16:20 WBC RBC Hgb POC Hgb 13.6 gm/dL gm/dL (12.6-16.3) Hct POC Hct 40 % % (38-47) MCV MCH MCHC RDW Plt Count MPV Neut % (Auto) Lymph % (Auto) [place] % (Auto) Eos % (Auto) Baso % (Auto) Nucleat RBC Rel Count Absolute Neuts (auto) Absolute Lymphs (auto) Absolute Monos (auto) Absolute Eos (auto) Absolute Basos (auto) Absolute Nucleated RBC Immature Gran % Immature Gran # POC Sodium 126 mEq/L L mEq/L (135-145) Sodium 123 mEq/L L mEq/L (135-145) POC Potassium 4.3 mEq/L mEq/L (3.3-5.0) Potassium 5.0 mEq/L mEq/L (3.5-5.2) POC Chloride 91 mEq/L L mEq/L (97-110) Chloride 92 mEq/L L mEq/L (97-110) Carbon Dioxide 24 mEq/l mEq/l (22-31) Anion Gap 7 mEq/L mEq/L (6-14) POC BUN 9 mg/dL mg/dL (7-23) BUN 11 mg/dL mg/dL (7-23) Creatinine 0.6 mg/dL mg/dL (0.6-1.0) POC Creatinine 0.6 mg/dL mg/dL (0.6-1.0) Estimated GFR > 60 Glucose 127 mg/dL H mg/dL (70-100) POC Glucose 127 mg/dL H mg/dL (70-100) Calcium 9.0 mg/dL mg/dL (8.5-10.4) Total Bilirubin 0.7 mg/dL mg/dL (0.1-1.4) Conjugated Bilirubin 0.4 mg/dL mg/dL (0.0-0.5) Unconjugated Bilirubin 0.3 mg/dL mg/dL (0.0-1.1) AST 27 IU/L IU/L (14-46) ALT 26 IU/L IU/L (9-52) Alkaline Phosphatase 71 IU/L IU/L (38-126) POC Troponin I 0.00 ng/mL ng/mL (0.00-0.08) Total Protein 6.8 g/dL g/dL (6.3-8.2) Albumin 4.3 g/dL g/dL (3.5-5.0) Lipase 43 IU/L IU/L (23-300) 11/01/18 16:20 WBC 11.44 10^3/uL H 10^3/uL (3.80-9.50) RBC 4.44 10^6/uL 10^6/uL (4.18-5.33) Hgb 13.6 g/dL g/dL (12.6-16.3) POC Hgb Hct 39.3 % % (38.0-47.0) POC Hct MCV 88.5 fL fL (81.5-99.8) MCH 30.6 pg pg (27.9-34.1) MCHC 34.6 g/dL g/dL (32.4-36.7) RDW 13.8 % % (11.5-15.2) Plt Count 352 10^3/uL 10^3/uL (150-400) MPV 8.5 fL L fL (8.7-11.7) Neut % (Auto) 87.0 % H % (39.3-74.2) Lymph % (Auto) 8.3 % L % (15.0-45.0) [place] % (Auto) 3.9 % L % (4.5-13.0) Eos % (Auto) 0.2 % L % (0.6-7.6) Baso % (Auto) 0.3 % % (0.3-1.7) Nucleat RBC Rel Count 0.0 % % (0.0-0.2) Absolute Neuts (auto) 9.95 10^3/uL H 10^3/uL (1.70-6.50) Absolute Lymphs (auto) 0.95 10^3/uL L 10^3/uL (1.00-3.00) Absolute Monos (auto) 0.45 10^3/uL 10^3/uL (0.30-0.80) Absolute Eos (auto) 0.02 10^3/uL L 10^3/uL (0.03-0.40) Absolute Basos (auto) 0.03 10^3/uL 10^3/uL (0.02-0.10) Absolute Nucleated RBC 0.00 10^3/uL 10^3/uL (0-0.01) Immature Gran % 0.3 % % (0.0-1.1) Immature Gran # 0.04 10^3/uL 10^3/uL (0.00-0.10) POC Sodium Sodium POC Potassium Potassium POC Chloride Chloride Carbon Dioxide Anion Gap POC BUN BUN Creatinine POC Creatinine Estimated GFR Glucose POC Glucose Calcium Total Bilirubin Conjugated Bilirubin Unconjugated Bilirubin AST ALT Alkaline Phosphatase POC Troponin I Total Protein Albumin Lipase Medications Given: Discontinued Medications Hydromorphone HCl (Dilaudid) 1 mg IVP EDNOW ONE Stop: 11/01/18 16:55 Last Admin: 11/01/18 17:10 Dose: 1 mg Sodium Chloride (Ns) 500 mls @ 1,000 mls/hr IV EDNOW ONE PRN Reason: Protocol Stop: 11/01/18 16:44 Last Admin: 11/01/18 16:37 Dose: 500 mls Morphine Sulfate (Morphine) 4 mg IVP EDNOW ONE Stop: 11/01/18 16:16 Last Admin: 11/01/18 16:32 Dose: 4 mg Ondansetron HCl (Zofran) 4 mg IVP EDNOW ONE Stop: 11/01/18 16:16 Last Admin: 11/01/18 16:32 Dose: 4 mg Point of Care Test Results: Chemistry 11/01/18 11/01/18 16:28 16:26 POC Sodium 126 mEq/L L mEq/L (135-145) POC Potassium 4.3 mEq/L mEq/L (3.3-5.0) POC Chloride 91 mEq/L L mEq/L (97-110) POC BUN 9 mg/dL mg/dL (7-23) POC Creatinine 0.6 mg/dL mg/dL (0.6-1.0) POC Glucose 127 mg/dL H mg/dL (70-100) POC Troponin I 0.00 ng/mL ng/mL (0.00-0.08) ISTAT H&H 11/01/18 16:26 POC Hgb 13.6 gm/dL gm/dL (12.6-16.3) POC Hct 40 % % (38-47) Departure - Departure Disposition: [facility] Inpatient Acute Clinical Impression: Hyponatremia, Volvulus Abdominal pain Qualifiers: Abdominal location: epigastric Qualified Code(s): R10.13 - Epigastric pain Condition: Fair
[2018-11-01 16:37] LABS: PLATELET COUNT 352 10^3/uL (150-400)
[2018-11-01] MEDS ORDERED: IOPAMIDOL (ISOVUE 370) 100 ML BTL IV ONE (16:48)
[2018-11-01] MEDS ORDERED: HYDROmorphONE/DILAUDID 1 MG/ML INJ IVP ONE (16:54)
[2018-11-01] MEDS ORDERED: KETOROLAC 30 MG/1 ML SDV IVP ONE (18:22)
[2018-11-01] MEDS ORDERED: KETOROLAC 30 MG/1 ML SDV ONE (18:25)
[2018-11-01] MEDS ORDERED: cefOXitin SODIUM 2 GM in NS 100 ML IV ONE (18:43)
[2018-11-01] MEDS ORDERED: LR 1,000 ML IV ONE (19:17)
[2018-11-01] MEDS ORDERED: NS 1,000 ML IV SCH (19:45)
--- NOTE | 2018-11-01 19:47 | PDANEPAE ---
ANE Past Medical History - Pulmonary History Hx Oxygen in Use at Home: No Hx Sleep Apnea: No - Endocrine History Hx Diabetes: No - Chronic Pain History Chronic Pain: Yes ANE Review of Systems Review of Systems: ANE Patient History - Allergies Allergies/Adverse Reactions: No Known Drug Allergies Allergy (Unknown, Verified 04/17/17 13:53) - Home Medications Home Medications: LORazepam [Ativan 2 mg tab] 2 mg PO HS 04/17/17 [Last Taken 04/16/17] QUEtiapine FUMARATE [Seroquel 25 mg (*)] 50 mg PO HS 04/17/17 [Last Taken ] Ibuprofen [Motrin (*)] 400 mg PO TID PRN 11/01/18 [Last Taken Unknown] Oxycodone Ir 10mg 10 mg PO TID PRN 11/01/18 [Last Taken 11/01/18 10:30] Spironolactone [Aldactone 50 MG (RX)] 50 mg PO BID 11/01/18 [Last Taken Unknown] Tretinoin [Retin-A] 1 ras TP DAILY PRN 11/01/18 [Last Taken Unknown] Venlafaxine Xr [Effexor Xr] 150 mg PO BID 11/01/18 [Last Taken 11/01/18 09:00] - NPO status NPO Since - Liquids (Date): 11/01/18 NPO Since - Liquids (Time): 11:00 NPO Since - Solids (Date): 11/01/18 NPO Since - Solids (Time): 11:00 - Smoking Hx Smoking Status: Never smoked ANE Labs/Vital Signs - Labs Result Diagrams: 11/01/18 16:20 11/01/18 16:20 - Vital Signs Blood Pressure: 143/92 Heart Rate: 68 Respiratory Rate: 14 O2 Sat (%): 98 Height: 160.02 cm Weight: 47.627 kg ANE Physical Exam - Airway Neck exam: decreased ROM Mallampati Score: Class 2 Mouth exam: normal dental/mouth exam - Pulmonary Pulmonary: no respiratory distress - Cardiovascular Cardiovascular: regular rate and rhythym - ASA Status ASA Status: III, E ANE Anesthesia Plan Anesthesia Plan: general endotracheal anesthesia
[2018-11-01] MEDS ORDERED: MIDAZOLAM 2 MG/2 ML VIAL IVP ONE (19:57)
[2018-11-01] MEDS ORDERED: MIDAZOLAM 2 MG/2 ML VIAL ONE (19:59)
[2018-11-01] MEDS ORDERED: PANTOPRAZOLE SODIUM 40 MG VIAL IVP SCH (20:00)
[2018-11-01] MEDS ORDERED: PROPOFOL 200 MG/20 ML VIAL ONE (20:08)
--- NOTE | 2018-11-01 20:08 | GHP ---
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 HISTORY OF PRESENT ILLNESS: The patient is a 63-year-old female who has had chronic complaints of abdominal discomfort. She has never had, however, an obstruction that she is aware of. She normally moves her bowels once a week. She did have diarrhea last week after a harrowing airplane emergency landing. 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 She was in her usual state of good health until this morning when she had the onset of an epigastric and periumbilical region discomfort. The pain did radiate to her back. She did have nausea and vomiting. She did have 1 normal bowel movement this morning. She was seen by Aston Chavez PA-C, with Whitney Dobbins MD, in the ER. A CAT scan was obtained which showed a small-bowel obstruction with no obvious transition point and what appeared to be a cecal volvulus. She did receive 1 dose of narcotics which made her somewhat better from a discomfort standpoint. She has no history of hernias. There is no history of a recent upper respiratory tract infection or diarrhea. She has not had any travel outside the [place] or antibiotics in the last 6 months. There is no history of inflammatory bowel disease and as mentioned above, no prior similar symptoms. SOCIAL HISTORY: She does not smoke. She drinks 2 glasses of wine per night and has done so for years. ALLERGIES: She has no known drug allergies. MEDICATIONS: Include Motrin 4 mg 3 times a day, Synthroid 0.25 mg daily, Ativan 2 mg p.o. q.h.s., Seroquel 50 mg p.o. q.h.s. She takes OxyIR 10 mg 3 times a day, Effexor XR 150 mg twice a day, and Aldactone 50 mg twice a day. She is on a pain control contract. PAST SURGICAL HISTORY: Included a bilateral knee replacement. She had L5-S1 laminectomy followed by a L4-5 spinal stabilization. On the right foot, she had had 5 surgeries which included hammertoe deformity repair, bunionectomy, and on the right foot, she has had a bunionectomy. She had a TMJ surgery, which resulted in placement of multiple implants. She has had a tonsillectomy and D and C. She has had a bone biopsy for possible osteo in her back (negative ). She delivered a stillborn secondary to an intrauterine . She has had a blepharoplasty, which makes it difficult for her to close her eyes completely. There is no history of rheumatic fever, tuberculosis, hepatitis, or transfusions. REVIEW OF SYSTEMS: She has a history of hyponatremia. It was felt to be due to medications in the past but it still persists as an issue; in fact, her potassium today is 123. She has neck pain and has recently had facet injections at C1-2 and C2-3. She has been hypertensive for 5 years. Recently, she had a vitreous bleed, has a decrease in her vision in her right eye. She wears contacts for visual correction. She has dental implants. She has been hypothyroid for 10 years. Last mammogram and Pap smear were 2 years ago. There are no limits on her activities. No history of steroid use. PHYSICAL EXAMINATION: GENERAL: She is awake, pleasant, and alert. HEENT: Skull is normocephalic and atraumatic. Her pupils are equal, round, reactive to light. NECK: Shows a reasonable range of motion. No meningeal signs. There are no carotid bruits. Thyroid is not enlarged. BACK: Unremarkable. LUNGS: Clear to auscultation. CARDIAC: Shows S1, S2 normal with a normal split of S2 without murmurs, rubs, or gallops. EXTREMITIES: She is moving all extremities. SKIN: [place] and dry. ABDOMEN: A mild distention. She has no tenderness to cough. Psoas and obturator signs are negative. There are distinctly hypoactive bowel sounds present. She is tender to palpation as follows: Left upper quadrant 4/10, left mid abdomen 4, left lower quadrant 5, epigastrium 7, periumbilical region 5 , suprapubic area 1, right upper quadrant 5, right mid abdomen 7, right lower quadrant 6. IMAGING DATA: CT of her abdomen as mentioned above shows a small bowel obstruction with either an internal hernia or an atypical volvulus involving the terminal ileum and ascending colon. Resolving edema in the cecum. There is a trace free fluid in the peritoneum. ASSESSMENT/PLAN: I do not feel that nasogastric decompression will resolve this patient's issue, and she would be at a high rate for recurrence if she did. Her hyponatremia appears to be chronic and I doubt it can be safely corrected expeditiously. Will plan an exploratory laparotomy with a lysis of adhesions and possible cecal resection. She understands the planned procedure and wishes to proceed as outlined. /[id number]/MODL MTDD
[2018-11-01] MEDS ORDERED: METOCLOPRAMIDE 10 MG/2 ML VIAL ONE (20:09)
[2018-11-01] MEDS ORDERED: ROCURONIUM 50 MG/5 ML VIAL ONE ×2 (20:09)
[2018-11-01] MEDS ORDERED: RANITIDINE 50 MG/2 ML VIAL ONE (20:09)
[2018-11-01] MEDS ORDERED: LIDOCAINE 2% 100 MG/5 ML SYR ONE (20:09)
--- NOTE | 2018-11-01 20:10 | PDHOSCONS ---
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 A CT of her abdomen in the ED showed partial small bowel obstruction related to internal hernia vs atypical volvulus and surgery is the primary team managing this. Medicine has been consulted as her labs showed a serum sodium of 123. Her sodium was 138 on last check in our system but this was from 10/2017. Of note, she has been admitted for hyponatremia in the past in 2008. At that time her lowest sodium was 118 and she was asymptomatic. Nephrology was consulted who felt that her hyponatremia was due to SIADH related to her psychiatric medications. Her sodium had improved to normal range at time of that discharge. The patient was already taken to the operating room by the surgery team by the time I went to see the patient. Thus, I did not discuss with her nor did I examine her. History Information - Allergies/Home Medication List Allergies/Adverse Reactions: No Known Drug Allergies Allergy (Unknown, Verified 04/17/17 13:53) Home Medications: LORazepam [Ativan 2 mg tab] 2 mg PO HS 04/17/17 [Last Taken 04/16/17] QUEtiapine FUMARATE [Seroquel 25 mg (*)] 50 mg PO HS 04/17/17 [Last Taken ] Ibuprofen [Motrin (*)] 400 mg PO TID PRN 11/01/18 [Last Taken Unknown] Oxycodone Ir 10mg 10 mg PO TID PRN 11/01/18 [Last Taken 11/01/18 10:30] Spironolactone [Aldactone 50 MG (RX)] 50 mg PO BID 11/01/18 [Last Taken Unknown] Tretinoin [Retin-A] 1 ras TP DAILY PRN 11/01/18 [Last Taken Unknown] Venlafaxine Xr [Effexor Xr] 150 mg PO BID 11/01/18 [Last Taken 11/01/18 09:00] I have personally reviewed and updated: family history, medical history, social history, surgical history - Past Medical History Additional medical history: mood disorder, hyponatremia felt 2/2 SIADH, labile blood pressure, lumbar spine disease - Surgical History Additional surgical history: remote lumbar spine fusion at L4-5 - Social History Smoking Status: Never smoked Alcohol Use: Occasionally Review of Systems Review of Systems: Unable to obtain. Physical Exam Physical Exam: Temp Pulse Resp BP Pulse Ox 36.8 C 68 14 143/92 H 98 11/01/18 19:29 11/01/18 19:47 11/01/18 19:47 11/01/18 19:47 11/01/18 19:47 Lab Data & Imaging Review 11/01/18 16:20 11/01/18 16:20 WBC 11.44 10^3/uL (3.80-9.50) H 11/01/18 16:20 RBC 4.44 10^6/uL (4.18-5.33) 11/01/18 16:20 Hgb 13.6 g/dL (12.6-16.3) 11/01/18 16:20 POC Hgb 13.6 gm/dL (12.6-16.3) 11/01/18 16:26 Hct 39.3 % (38.0-47.0) 11/01/18 16:20 POC Hct 40 % (38-47) 11/01/18 16:26 MCV 88.5 fL (81.5-99.8) 11/01/18 16:20 MCH 30.6 pg (27.9-34.1) 11/01/18 16:20 MCHC 34.6 g/dL (32.4-36.7) 11/01/18 16:20 RDW 13.8 % (11.5-15.2) 11/01/18 16:20 Plt Count 352 10^3/uL (150-400) 11/01/18 16:20 MPV 8.5 fL (8.7-11.7) L 11/01/18 16:20 Neut % (Auto) 87.0 % (39.3-74.2) H 11/01/18 16:20 Lymph % (Auto) 8.3 % (15.0-45.0) L 11/01/18 16:20 [place] % (Auto) 3.9 % (4.5-13.0) L 11/01/18 16:20 Eos % (Auto) 0.2 % (0.6-7.6) L 11/01/18 16:20 Baso % (Auto) 0.3 % (0.3-1.7) 11/01/18 16:20 Nucleat RBC Rel Count 0.0 % (0.0-0.2) 11/01/18 16:20 Absolute Neuts (auto) 9.95 10^3/uL (1.70-6.50) H 11/01/18 16:20 Absolute Lymphs (auto) 0.95 10^3/uL (1.00-3.00) L 11/01/18 16:20 Absolute Monos (auto) 0.45 10^3/uL (0.30-0.80) 11/01/18 16:20 Absolute Eos (auto) 0.02 10^3/uL (0.03-0.40) L 11/01/18 16:20 Absolute Basos (auto) 0.03 10^3/uL (0.02-0.10) 11/01/18 16:20 Absolute Nucleated RBC 0.00 10^3/uL (0-0.01) 11/01/18 16:20 Immature Gran % 0.3 % (0.0-1.1) 11/01/18 16:20 Immature Gran # 0.04 10^3/uL (0.00-0.10) 11/01/18 16:20 POC Sodium 126 mEq/L (135-145) L 11/01/18 16:26 Sodium 123 mEq/L (135-145) L 11/01/18 16:20 POC Potassium 4.3 mEq/L (3.3-5.0) 11/01/18 16:26 Potassium 5.0 mEq/L (3.5-5.2) 11/01/18 16:20 POC Chloride 91 mEq/L (97-110) L 11/01/18 16:26 Chloride 92 mEq/L (97-110) L 11/01/18 16:20 Carbon Dioxide 24 mEq/l (22-31) 11/01/18 16:20 Anion Gap 7 mEq/L (6-14) 11/01/18 16:20 POC BUN 9 mg/dL (7-23) 11/01/18 16:26 BUN 11 mg/dL (7-23) 11/01/18 16:20 Creatinine 0.6 mg/dL (0.6-1.0) 11/01/18 16:20 POC Creatinine 0.6 mg/dL (0.6-1.0) 11/01/18 16:26 Estimated GFR > 60 11/01/18 16:20 Glucose 127 mg/dL (70-100) H 11/01/18 16:20 POC Glucose 127 mg/dL (70-100) H 11/01/18 16:26 Calcium 9.0 mg/dL (8.5-10.4) 11/01/18 16:20 Total Bilirubin 0.7 mg/dL (0.1-1.4) 11/01/18 16:20 Conjugated Bilirubin 0.4 mg/dL (0.0-0.5) 11/01/18 16:20 Unconjugated Bilirubin 0.3 mg/dL (0.0-1.1) 11/01/18 16:20 AST 27 IU/L (14-46) 11/01/18 16:20 ALT 26 IU/L (9-52) 11/01/18 16:20 Alkaline Phosphatase 71 IU/L (38-126) 11/01/18 16:20 POC Troponin I 0.00 ng/mL (0.00-0.08) 11/01/18 16:28 Total Protein 6.8 g/dL (6.3-8.2) 11/01/18 16:20 Albumin 4.3 g/dL (3.5-5.0) 11/01/18 16:20 Lipase 43 IU/L (23-300) 11/01/18 16:20 Assessment & Plan Assessment: 63yo F with mood disorder, history of hyponatremia 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 Medicine has been consulted for management of hyponatremia. Plan: 1. Hyponatremia: Unclear if acute or chronic. Na 123 on arrival and reportedly asymptomatic with regards to this. She has been hyponatremic in the past felt due to SIADH related to her psych meds and this is certainly plausible again. However, I was unable to interview or examine the patient as she was taken emergently to the OR. She did receive roughly 1.5L of isotonic fluids in the ED. - Check urine sodium, osms - Check TSH, random cortisol - Recommend discontinuing maintenance fluids - Fluid restrict to 1L/day - Q2h Na checks, goal to increase by no more than 6 in 24 hours (up to 129 by tomorrow afternoon) 2. Mood disorder - Continue home seroquel, effexor when taking PO - If Na not improving on these, will need to consider tapering and stopping 3. Hypothyroid: Continue home LT4 replacement. I would recommend admission to SDU/ICU after surgical intervention for close monitoring of her sodium levels. Thank you for this consult, we will continue to follow along.
[2018-11-01] MEDS ORDERED: SUGAMMADEX SODIUM 200 MG/2 ML VIAL IVP ONE (21:30)
[2018-11-01] MEDS ORDERED: PROMETHAZINE HCL 25 MG/ML INJ IVP PRN (21:34)
[2018-11-01] MEDS ORDERED: ONDANSETRON 4 MG/2 ML VIAL IVP PRN (21:34)
[2018-11-01] MEDS ORDERED: NALOXONE HCL 0.4 MG/ML INJ IVP PRN ×2 (21:34→22:02)
[2018-11-01] MEDS ORDERED: MEPERIDINE 25 MG/0.5 ML AMP IVP PRN (21:34)
[2018-11-01] MEDS ORDERED: ALBUTEROL 3 ML DEYVIAL IH PRN (21:34)
--- NOTE | 2018-11-01 22:00 | POSTOPPROG ---
Post Op Note Date of Operation: 11/01/18 Surgeon: Sudheer Gillespie Anesthesia: GET(General Endotracheal) Pre-op Diagnosis: Cecal vovulus, SBO, Chronic hyponatremia Post-op Diagnosis: Cecal vovulus, SBO, Chronic hyponatremia Indication: Cecal vovulus, SBO Procedure: right colon resection Findings: Cecal vovulus, SBO, Chronic hyponatremia Inf/Abcess present in the surg proc area at time of surgery?: No EBL: Minimal Total fluids administered: 700 Complications: none Specimen(s): right colon
--- NOTE | 2018-11-01 22:04 | POSTANESTH ---
Post Anesthetic Evaluation Cardiovascular Status: Similar to Pre-Op Cond Respiratory Status: Similar to Pre-op Cond. Level of Consciousness/Mental Status: Mildly Sleepy, Arousable Pain Control: Adequate, Prn Tx Ordered Nausea/Vomiting Control: Adequate, Prn Tx Ordered Complications Possibly Related to Anesthesia: None Noted
[2018-11-01] MEDS ORDERED: LABETALOL HCL 5 MG/ML 20 ML MDV ONE (22:12)
[2018-11-01] MEDS: LABETALOL HCL 5 MG/ML 20 ML MDV IVP PRN ×3 (22:15→22:49)
[2018-11-01] MEDS ORDERED: fentaNYL 100 MCG/2 ML INJ ONE (22:33)
[2018-11-01] MEDS: fentaNYL 100 MCG/2 ML INJ IVP PRN ×2 (22:35→22:43)
[2018-11-01] MEDS ORDERED: HYDROmorphONE/DILAUDID 2 MG/ML INJ ONE (22:59)
[2018-11-01] MEDS: HYDROmorphONE/DILAUDID 2 MG/ML INJ IVP PRN ×2 (23:03→23:13)
[2018-11-02] MEDS: HYDROmorphONE/DILAUDID 2 MG/ML INJ IVP PRN (00:02)
[2018-11-02] MEDS ORDERED: fentaNYL 100 MCG/2 ML INJ ONE (00:10)
[2018-11-02] MEDS ORDERED: BUPIVACAINE/EPI 0.5% 30 ML SDV ONE (00:11)
[2018-11-02] MEDS ORDERED: KETOROLAC 30 MG/1 ML SDV ONE (00:27)
[2018-11-02] MEDS: HYDROmorph 10MCG/ML&BUP 0.1% in 100ML NS EP SCH ×2 (00:55→14:43)
[2018-11-02] MEDS ORDERED: ALBUMIN 5% 250 ML BOTTLE IV ONE (01:17)
[2018-11-02] MEDS: KETOROLAC 30 MG/1 ML SDV IVP SCH ×4 (01:22→18:12)
[2018-11-02] MEDS ORDERED: NALOXONE HCL 0.4 MG/ML INJ IVP PRN ×2 (01:26→02:30)
[2018-11-02] MEDS ORDERED: ONDANSETRON 4 MG/2 ML VIAL IVP PRN ×2 (01:26→02:06)
[2018-11-02] MEDS: ACETAMINOPHEN 500 MG TAB PO SCH ×4 (01:29→20:09)
[2018-11-02] MEDS: cefOXitin SODIUM 1 GM in NS 50 ML IV SCH ×3 (02:00→14:07)
[2018-11-02] MEDS ORDERED: METOCLOPRAMIDE 10 MG/2 ML VIAL IVP PRN (02:30)
[2018-11-02] MEDS ORDERED: LR 500 ML IV ONE (02:45)
[2018-11-02] MEDS ORDERED: ALBUTEROL 3 ML DEYVIAL ONE (02:52)
[2018-11-02] MEDS ORDERED: LORazepam 2 MG/ML INJ ONE (02:53)
[2018-11-02] MEDS ORDERED: LORazepam 2 MG/ML INJ IV ONE (02:57)
[2018-11-02] MEDS ORDERED: NS 500 ML IV ONE (03:00)
[2018-11-02] MEDS: PANTOPRAZOLE SODIUM 40 MG VIAL IVP SCH (03:53)
[2018-11-02 04:55] LABS: PLATELET COUNT 258 10^3/uL (150-400)
[2018-11-02] MEDS: diphenhydrAMINE 25 MG CAP PO PRN ×2 (05:06→11:36)
[2018-11-02] MEDS: 1/2 NS 1,000 ML IV SCH ×2 (05:57→21:05)
--- NOTE | 2018-11-02 07:47 | GOP ---
DATE OF OPERATION: 11/01/2018 SURGEON: Sudheer Gillespie MD ANESTHESIA: General endotracheal. 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 PROCEDURE PERFORMED: Right colon resection. 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 SPECIMENS: Right colon. ESTIMATED BLOOD LOSS: Minimal. INDICATIONS: Cecal volvulus with small-bowel obstruction. DESCRIPTION OF PROCEDURE: The patient was placed on the operating table in supine position. After induction of adequate general endotracheal anesthesia care is taken to make sure her eyes are completely closed (given prior blepharoplasty) to minimize corneal abrasions. A Medina catheter was placed and an orogastric tube was positioned. Surgical time-out was carried out and agreed to by all members of the operative team. Note is made of her chronic hyponatremia. The abdomen was now carefully prepped and draped. A curvilinear incision was made and was carried to the right of the umbilicus. It extends from the low epigastrium to the high hypogastrium. Incision was made sharply and deepened with Bovie electrocautery. The peritoneum was entered. Distended cecum was identified. This was carefully detorsed. The right colon was quite mobile. Harmonic Scalpel was used to divide the peritoneum laterally to improve the mobilization. A point for resection was chosen in the proximal right transverse colon. The bowel was cleared circumferentially. The 55 mm linear stapler was fired across the colon. The terminal ileum was similarly cleared. Again, a linear 55 stapler was used to transect the ileum. Care was taken to minimize the antimesenteric length. The mesentery of the right colon was now carefully resected using Harmonic scalpel. Right colonic vessels are carefully clamped, divided, and tied with 2- 0 silk ties. The specimen was removed from the field. The small bowel was milked proximally and a Justin clamp was applied. The transverse colon was milked distally and another Justin clamp was applied. A [id number] prograde stapled anastomosis was then created. The end of the terminal ileum is sutured to the tenia of the transverse colon approximately 7 cm from the staple closure of the colon. On the antimesenteric border of the small bowel, a defect is created with cautery to enter the bowel. The small limb of the stapler was passed. A similar incision was made on the tenia of the colon. The large limb of the stapler was passed. Stapler was connected, fired and left in place for several minutes. It was now removed. Allis clamps were placed at either end of the staple line and staple lines inspected. There was no obvious bleeding. A third Allis was placed across the midportion of the enterotomy. A TA60 is brought to the field and fired. A misfire occurred. This was recognized and a second TA60 was brought to the field, fired. It functioned correctly. The bowel distal to the stapler was transected with a knife. The Justin clamps were removed. A wide-open palpable anastomosis was appreciated. The suture lines were reinforced with interrupted Lembert type stitches of 3-0 GI silk. The mesenteric defect was carefully closed with a running suture of #3-0 Vicryl. The small bowel was run throughout its length. There were no other anomalies appreciated. The intestine was replaced into the abdomen. Irrigation was carried out with warm saline. There was very minimal omentum to bring down across the bowel. The fascia was closed with a running suture of #0 PDS. It was started at the cephalad end. At the level of the umbilicus, herniated umbilical fat was reduced. The fascial defect was closed with the running suture of 0 PDS as well. At a point approximately 2 fingerbreadths below the umbilicus. A 2nd suture was started at the inferior end of the incision and then proximally. The suture lines were carefully digitally inspected. The knot was constructed inside the abdomen and closed. The subcutaneous tissue was well irrigated. The skin was closed with roberta. A sterile dressing was applied. The patient was transferred to recovery in stable and satisfactory condition. FLUIDS: 700 cc. /[id number]/MODL MTDD
--- NOTE | 2018-11-02 09:43 | PDMN ---
Medical Necessity Medical necessity: Pt meets inpt criteria per MD order and [id number], Bowel Surgery: Colectomy, Partial, with or without Ostomy, 4 days. 63 y/o presenting w /abd pain found to have SBO/cecal volvulus on imaging requiring surg intervention: open R colon resection for cecal volvulus/SBO, also w/chronic hyponatremia. Est LOS>2MN for abd surg/post-op care.
--- NOTE | 2018-11-02 09:45 | HOSPPROG ---
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 Medicine has been consulted for management of hyponatremia. 1. Hyponatremia: Multifactorial, component of SIADH in setting of poor solute/ high free water intake as well as spironolactone use. - continue 1/2NS at 75ml/hr - q4h Na checks, goal to not be above 129 this evening, can liberalize goals tomorrow - fluid restrict to 1.5L/d - discontinued spironolactone (on for acne) 2. Cecal volvulus with SBO: Now s/p right colon resection with Dr Gillespie - epidural placed post-operatively for pain control 3. Hypotension: Intra-op. Now normotensive. 4. Depression: Continue home seroquel and effexor. Considered weaning effexor as can cause SIADH but has been on for 5 years and necessary for her mental health, per patient. 5. Hypothyroid: TSH ok, continue LT4 replacement. We will continue to follow along. Subjective: Pain better. Had been drinking lots of water, not eating many meals. Been on effexor for years. Objective: Vital Signs Temp Pulse Resp BP Pulse Ox 37.0 C 73 21 H 90/58 L 97 11/02/18 08:00 11/02/18 08:00 11/02/18 08:00 11/02/18 08:00 11/02/18 08:00 Laboratory Results 11/02/18 04:15 11/02/18 06:10 11/01/18 11/02/18 11/03/18 05:59 05:59 05:59 Intake Total 3000 Output Total 275 Balance 2725 - Physical Exam Constitutional: no apparent distress, appears nourished, not in pain Eyes: PERRL, anicteric sclera, EOMI Ears, Nose, Mouth, Throat: moist mucous membranes, hearing normal, ears appear normal, no oral mucosal ulcers Cardiovascular: regular rate and rhythym, no murmur, rub, or gallop Respiratory: no respiratory distress, no rales or rhonchi, clear to auscultation Gastrointestinal: other (incision sites healing well) Genitourinary: no bladder fullness, no bladder tenderness, no renal bruits Skin: no rashes or abrasions, no fluctuance, no induration Musculoskeletal: full muscle strength, no muscle tenderness, normal joint ROM Neurologic: AAOx3, sensation intact bilaterally Psychiatric: interacting appropriately, not anxious, not encephalopathic, thought process linear ICD10 Worksheet Patient Problems: Problems Problem Status Onset Abdominal pain Acute Hyponatremia Acute Volvulus Acute Back pain Acute Diskitis Acute
[2018-11-02] MEDS: FLUTICASONE NASAL 120 SPRAYS/16 GM MDI EACHNARE SCH (09:48)
[2018-11-02] MEDS: REGARDING ANTICOAG MISC SCH (09:49)
[2018-11-02] MEDS: DC NARCS MISC SCH (09:49)
--- NOTE | 2018-11-02 11:20 | SOAPPROG ---
SOAP Progress Note Assessment/Plan: POD#1 11/02/18 11:16 Assessment: Patient had post op pain issues. An epidural was placed. hypotension and hyponatremia prompted SDU admission. She has done well. VSS. Hypoactive bowel sounds but no flatus yet Hospitalist service treating hyponatremia ( up to 129) Plan: Stable for transfer to med/surg will try clear liquids Subjective: I feel so much better Objective: Vital Signs Temp Pulse Resp BP Pulse Ox 37.0 C 75 16 108/60 96 11/02/18 08:00 11/02/18 10:00 11/02/18 10:00 11/02/18 10:00 11/02/18 10:00 Laboratory Results 11/02/18 04:15 11/02/18 09:30 11/01/18 11/02/18 11/03/18 05:59 05:59 05:59 Intake Total 3000 Output Total 275 Balance 2725 - Time Spent With Patient Time Spent With Patient: 25 - Pending Discharge Pending Discharge Within 24 Hours: No Pending Discharge Within 48 Hours: No Physical Exam - Physical Exam General Appearance: WD/WN, alert, no apparent distress Neck: full range of motion, supple Respiratory: lungs clear, normal breath sounds Cardiac/Chest: regular rate, rhythm Abdomen: normal bowel sounds (hypoactive), non-tender, soft, other (incision clean and dry) Pelvic Exam: deferred Rectal: deferred Back: Normal inspection Skin: normal color, warm/dry Extremities: normal range of motion, non-tender Neuro/Psych: no motor/sensory deficits, alert, normal mood/affect, oriented x 3 ICD10 Worksheet Patient Problems: Problems Problem Status Onset Abdominal pain Acute Hyponatremia Acute Volvulus Acute Back pain Acute Diskitis Acute
--- NOTE | 2018-11-02 12:14 | ASMTCASEMG ---
Living Arrangements What is your living Answers: With Partner arrangement? Who do you live with? Type Of Residence What kind of residence do Answers: House you live in? Discharge Plan Comments Coordination Status Comments Notes: Patient is a 63yo female who was admitted for chronic abdominal discomfort, bowel obstruction due to cecal volvulus. She will go for exploratory laparotomy with a lysis of adhesions and possible cecal resection. No therapies ordered. Patient will most likely d/c independently. CM available if d/c needs arise. Date Signed: 11/02/2018 12:13 PM Electronically Signed By:Denice Fletcher LCSW
--- NOTE | 2018-11-02 12:41 | PDPAINCON ---
Pain Management Consultation Patient referred by : Verna - Subjective Pain at rest (/10): 0 Pain with activity (/10): 3 Pain is: under control Activity: out of bed with assistance - Objective Technique: continuous epidural Site: thoracic Continuous infusion: bupivicaine (with fentanyl) Catheter site: clean, dry, intact, no erythema/edema/exudate Sensory and motor exam: consistent with block, dermatomal level (T8-L1 levels) Vital signs: stable - Assessment/Plan Assessment/Plan: pain well-controlled, continue current mgmt (Pt doing well. Great levels. Continue current management.)
--- NOTE | 2018-11-02 14:27 | GCON ---
CRITICAL CARE CONSULT DATE OF CONSULTATION: 11/02/2018 This patient is a 63-year-old female who was admitted yesterday complaining of abdominal pain, nausea , and vomiting. Was found to have a sodium of 122. CT scan showed an incarcerated hernia and cecal volvulus. She was subsequently taken to the operating room by Dr. Gillespie, where a hemicolectomy was performed. There were no intraoperative complications. Today, the patient is complaining of some ab dominal pain and particularly complaining about nasal congestion. REVIEW OF SYSTEMS: Otherwise negative. PAST MEDICAL HISTORY: Includes anxiety, depression, hypothyroidism, remote nonoperative subarachnoid hemorrhage, and hyponatremia in the past. PAST SURGICAL HISTORY: Includes section, tonsillectomy, bilateral total knee arthroplasty, temporomandibular joint surgery, spine surgery twice, and shoulder surgery in the past. SOCIAL HISTORY: She is a nonsmoker. No significant alcohol or IV drug use. FAMILY HISTORY: Noncontributory. MEDICATIONS: At this time include cefoxitin, Benadryl, Lovenox, Dilaudid, epidural anesthesia, Kristal n, Toradol, Flagyl, Zofran, Protonix, half-normal saline. PHYSICAL EXAMINATION: VITAL SIGNS: At the time of my visit, her blood pressure is 124/75, heart rat e 86, respirations 15, oxygen saturation 95% on room air. GENERAL: She was awake, alert, in no appa rent distress. Able to speak in full sentences without using accessory muscles for breathing. HEENT : Pupils equally round and reactive to light. Nonicteric and noninjected. Mucous membranes are [place] st without erythema or exudate. NECK: Supple, without adenopathy or jugular vein distention. Breat h sounds are clear to auscultation bilaterally without wheezes, rubs, or rales. HEART: Regular rate and rhythm without obvious murmurs, rubs, or gallops. ABDOMEN: Diffusely tender with obvious guard ing, but did appear to be mostly soft. Hypoactive bowel tones. Her incision was clean and dry witho ut evidence of infection. EXTREMITIES: Showed no clubbing, cyanosis, or edema. SKIN: Warm and dry without evidence of rash. NEUROLOGICAL: Nonfocal, including cranial nerves and deep tendon reflexe s. OBJECTIVE DATA: Includes a white count which was 11.4 yesterday and 11.9 today, hematocrit 32, plate lets 258. Sodium was 122 at a low point, now 128. The rest of her basic metabolic panel is normal. Urine osmolality is 485, with a urine sodium of 29. ASSESSMENT AND PLAN: 1. Cecal volvulus which has been repaired surgically. She appears to be doing well. Pain control s eems to be under good control with her epidural anesthesia, and I would defer to Dr. Gillespie for advan cing diet as tolerated, but probably not likely today. There is no hemodynamic compromise. 2. Hyponatremia, probably from dehydration. Her urine osmolality of 485 argues strongly against syn drome of inappropriate antidiuretic hormone secretion as a problem, and I think fluids would be appro priate. So far, her sodium has not dropped, which would also argue against syndrome of inappropriate antidiuretic hormone secretion. She is otherwise stable and okay for the floor. /[id number]/MODL
[2018-11-02] MEDS: PSEUDOEPHEDRINE HCL 30 MG TAB PO PRN ×2 (15:03→21:04)
[2018-11-02] MEDS ORDERED: LORazepam 1 MG TAB PO ONE (15:53)
[2018-11-02] MEDS ORDERED: IPRATROPIUM/ALBUTEROL 3 ML DEYVIAL IH PRN (15:56)
[2018-11-02] MEDS ORDERED: NS BOLUS 500 ML (Wide open) IV ONE (20:00)
[2018-11-02] MEDS ORDERED: QUEtiapine FUMARATE 50 MG TAB PO SCH (21:00)
[2018-11-02] MEDS: ENOXAPARIN 40 MG/0.4 ML SYR SC SCH (21:04)
[2018-11-03] MEDS: KETOROLAC 30 MG/1 ML SDV IVP SCH ×4 (00:28→18:41)
[2018-11-03] MEDS: ACETAMINOPHEN 500 MG TAB PO SCH ×3 (06:23→21:24)
[2018-11-03] MEDS: HYDROmorph 10MCG/ML&BUP 0.1% in 100ML NS EP SCH ×2 (06:23→16:51)
[2018-11-03] MEDS: PSEUDOEPHEDRINE HCL 30 MG TAB PO PRN ×2 (07:36→18:41)
[2018-11-03] MEDS: 1/2 NS 1,000 ML IV SCH (07:36)
--- NOTE | 2018-11-03 09:08 | SOAPPROG ---
SOAP Progress Note Assessment/Plan: Assessment: 63yo F s/p ex-lap, RHC for cecal volvulus - VSS, HDS, afebrile - tolerating clears, having flatus, no BM. Cont CLD for now - epidural for pain, working well. Likely keep another 1-2 days. Has Hx of chronic pain and chronic opioid use - abdomen looks good, incision c/d/i, has bowel sounds - needs to get OOB, ambulate, poss reg diet later today. - will check with anesthesia to see whether ot not approriate to remove grier Plan: 11/03/18 09:06 Subjective: wants to know why her BP meds havent been restarted Objective: Vital Signs Temp Pulse Resp BP Pulse Ox 37.2 C 74 16 151/93 H 99 11/03/18 08:00 11/03/18 08:00 11/03/18 08:00 11/03/18 08:00 11/03/18 08:00 Laboratory Results 11/02/18 04:15 11/02/18 11/03/18 11/04/18 05:59 05:59 05:59 Intake Total 3000 1189 Output Total 113 1250 Balance 2725 -61 ICD10 Worksheet Patient Problems: Problems Problem Status Onset Abdominal pain Acute Hyponatremia Acute Volvulus Acute Back pain Acute Diskitis Acute
[2018-11-03] MEDS: NS 1,000 ML IV SCH (09:47)
[2018-11-03] MEDS: FLUTICASONE NASAL 120 SPRAYS/16 GM MDI EACHNARE SCH (09:49)
[2018-11-03] MEDS: PANTOPRAZOLE SODIUM 40 MG VIAL IVP SCH (09:50)
[2018-11-03] MEDS: DC NARCS MISC SCH (09:50)
[2018-11-03] MEDS: REGARDING ANTICOAG MISC SCH (09:50)
--- NOTE | 2018-11-03 11:45 | PDPAINCON ---
Pain Management Consultation Patient referred by : Mahsa - Subjective Pain at rest (/10): 7 (reports this is much better than first night after surgery) Pain with activity (/10): 7 Pain is: high, but manageable Activity: able to ambulate, out of bed with assistance Comments: Despite high reported pain score, pt mostly focused on ensuring she receives all of her home meds (sleep meds, HTN med, etc) than on discussing her pain levels - Objective Technique: continuous epidural Site: thoracic Continuous infusion: bupivicaine Continuous rate (ml/hr): 5 (increased from 4) Bolus (ml): 3 (increased from 2) Lockout interval (mins): 15 Catheter site: clean, dry, intact, no erythema/edema/exudate Sensory and motor exam: other (no block to ice at this time. Discussed how to re -establish block, and decision made to increase basal/bolus rates. Pt understands how to use bolus button.) - Assessment/Plan Assessment/Plan: change infusion rate Additional comments: Will check on pt this afternoon to assess how changing basal and bolus has worked. Medina catheter may be removed at any time.
[2018-11-03] MEDS: VENLAFAXINE XR 150 MG CAP PO SCH ×2 (12:45→22:26)
[2018-11-03] MEDS ORDERED: Tretinoin [Retin-A] 1 APP TP PRN (13:11)
--- NOTE | 2018-11-03 13:12 | HOSPPROG ---
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 Medicine has been consulted for management of hyponatremia. 1. Hyponatremia: Improving appropriately. Multifactorial with component of hypovolemic as responded to isotonic fluids and also possibly worsened by spironolactone use. - switch from 1/2NS to NS, encourage PO intake - space out Na checks, recheck in AM - discontinued spironolactone (on for acne) 2. Hypertension - restart home lisinopril 3. Cecal volvulus with SBO: Now s/p right colon resection with Dr Gillespie - epidural placed post-operatively for pain control remains in place 4. Depression: Continue home seroquel, ativan and effexor. 5. Hypothyroid: TSH ok, continue LT4 replacement. We will continue to follow along. Subjective: Wondering about her BP and lisinopril. Also wanting to restart her other home meds. Pain still an issue, has epidural Objective: Vital Signs Temp Pulse Resp BP Pulse Ox 37 C 74 18 179/125 H 96 11/03/18 12:00 11/03/18 12:00 11/03/18 12:00 11/03/18 12:00 11/03/18 12:00 Laboratory Results 11/02/18 04:15 11/03/18 08:52 11/02/18 11/03/18 11/04/18 05:59 05:59 05:59 Intake Total 3000 1189 1654 Output Total 275 1250 Balance 2725 -61 1654 - Physical Exam Constitutional: no apparent distress, appears nourished, not in pain Eyes: PERRL, anicteric sclera, EOMI Ears, Nose, Mouth, Throat: moist mucous membranes, hearing normal, ears appear normal, no oral mucosal ulcers Cardiovascular: regular rate and rhythym, no murmur, rub, or gallop Respiratory: no respiratory distress, no rales or rhonchi, clear to auscultation Gastrointestinal: normoactive bowel sounds, soft, non-tender abdomen, no palpable masses, other (incision sites healing appropriately) Genitourinary: no bladder fullness, no bladder tenderness, no renal bruits Skin: no rashes or abrasions, no fluctuance, no induration Musculoskeletal: full muscle strength, no muscle tenderness, normal joint ROM Neurologic: AAOx3, sensation intact bilaterally Psychiatric: interacting appropriately, not anxious, not encephalopathic, thought process linear ICD10 Worksheet Patient Problems: Problems Problem Status Onset Abdominal pain Acute Hyponatremia Acute Volvulus Acute Back pain Acute Diskitis Acute
[2018-11-03] MEDS: LISINOPRIL 10 MG TAB PO SCH (13:23)
[2018-11-03] MEDS: LEVOTHYROXINE 25 MCG TAB PO SCH (17:19)
[2018-11-03] MEDS ORDERED: hydrALAZINE 20 MG/ML VIAL IVP PRN (19:03)
[2018-11-03] MEDS: LORazepam 1 MG TAB PO SCH (22:25)
[2018-11-03] MEDS: QUEtiapine FUMARATE 25 MG TAB PO SCH (22:25)
[2018-11-03] MEDS: ENOXAPARIN 40 MG/0.4 ML SYR SC SCH (22:34)
[2018-11-04] MEDS: KETOROLAC 30 MG/1 ML SDV IVP SCH ×4 (00:20→18:11)
[2018-11-04] MEDS: HYDROmorph 10MCG/ML&BUP 0.1% in 100ML NS EP SCH (03:14)
[2018-11-04] MEDS: ACETAMINOPHEN 500 MG TAB PO SCH ×3 (06:10→20:53)
[2018-11-04] MEDS: NS 1,000 ML IV SCH (06:12)
[2018-11-04] MEDS: LEVOTHYROXINE 25 MCG TAB PO SCH (06:12)
--- NOTE | 2018-11-04 09:48 | HOSPPROG ---
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 Medicine has been consulted for management of hyponatremia. 1. Hyponatremia: Slight drop, suspect hypovolemia from inadequate fluids. - Increase NS to 150ml/hr for today - Recheck daily - Discontinued spironolactone 2. Hypertension: BP better - Continue home lisinopril. Ig Na continues to be low, stopping this can be considered 3. Diarrhea: Suspect bowels starting to work. - If continues throughout day, would check C diff 4. Cecal volvulus with SBO: Now s/p right colon resection with Dr Gillespie - epidural placed post-operatively for pain control remains in place 5. Depression: Continue home seroquel, ativan and effexor. 6. Hypothyroid: TSH ok, continue LT4 replacement. We will continue to follow along. Subjective: Lots of stools overnight, some with blood. These were first bowel movements after surgery. Foul smelling. Not ocurring any longer. No abdominal pain. Objective: Vital Signs Temp Pulse Resp BP Pulse Ox 37.2 C 77 18 149/94 H 93 11/04/18 08:00 11/04/18 08:00 11/04/18 08:00 11/04/18 08:00 11/04/18 08:00 Laboratory Results 11/02/18 04:15 11/03/18 14:59 11/03/18 11/04/18 11/05/18 05:59 05:59 05:59 Intake Total 1189 2791 Output Total 1250 Balance -61 2791 - Physical Exam Constitutional: no apparent distress, appears nourished, not in pain Eyes: PERRL, anicteric sclera, EOMI Ears, Nose, Mouth, Throat: moist mucous membranes, hearing normal, ears appear normal, no oral mucosal ulcers Cardiovascular: regular rate and rhythym, no murmur, rub, or gallop, No edema Respiratory: no respiratory distress, no rales or rhonchi, clear to auscultation Gastrointestinal: other (incision healing well) Genitourinary: no bladder fullness, no bladder tenderness, no renal bruits Skin: no rashes or abrasions, no fluctuance, no induration Musculoskeletal: full muscle strength, no muscle tenderness, normal joint ROM Neurologic: AAOx3, sensation intact bilaterally Psychiatric: interacting appropriately, not anxious, not encephalopathic, thought process linear ICD10 Worksheet Patient Problems: Problems Problem Status Onset Abdominal pain Acute Hyponatremia Acute Volvulus Acute Back pain Acute Diskitis Acute
[2018-11-04] MEDS: LISINOPRIL 10 MG TAB PO SCH (09:49)
[2018-11-04] MEDS: PANTOPRAZOLE SODIUM 40 MG VIAL IVP SCH (09:49)
[2018-11-04] MEDS: VENLAFAXINE XR 150 MG CAP PO SCH ×2 (09:49→20:54)
[2018-11-04] MEDS: FLUTICASONE NASAL 120 SPRAYS/16 GM MDI EACHNARE SCH (09:50)
[2018-11-04] MEDS: REGARDING ANTICOAG MISC SCH (10:03)
[2018-11-04] MEDS: DC NARCS MISC SCH (10:03)
[2018-11-04] MEDS ORDERED: oxyCODONE IR 5 MG TAB PO PRN (12:53)
--- NOTE | 2018-11-04 12:57 | PDPAINCON ---
Pain Management Consultation Patient referred by : Verna - Subjective Pain at rest (/10): 4 Pain with activity (/10): 10 Pain is: high, but manageable Activity: able to ambulate - Objective Technique: continuous epidural Site: thoracic Continuous infusion: hydromorphone Catheter site: clean, dry, intact Sensory and motor exam: block has resolved, no apparent ill effects Vital signs: stable - Assessment/Plan Assessment/Plan: other (Catheter less than 5 cm at the skin. No sensory block. Catheter has removed itself and block has fully resolved. Will encourage IV/PO narcotics for pain management. Pt aware and understands the plan.)
[2018-11-04] MEDS: HYDROmorphONE/DILAUDID 1 MG/ML INJ IVP PRN (13:01)
[2018-11-04] MEDS: oxyCODONE IR 15 MG TAB PO PRN ×2 (14:29→18:10)
--- NOTE | 2018-11-04 15:04 | ASMTCMCOM ---
CM Note CM Note Notes: Spoke with Dr. Contreras regarding patient and he thinks she will d/c independently. No therapies were ordered for patient.CM is available if d/c needs arise. Date Signed: 11/04/2018 03:03 PM Electronically Signed By:Denice Fletcher LCSW
[2018-11-04] MEDS: ENOXAPARIN 40 MG/0.4 ML SYR SC SCH (20:52)
[2018-11-04] MEDS: LORazepam 1 MG TAB PO SCH (20:54)
[2018-11-04] MEDS: QUEtiapine FUMARATE 25 MG TAB PO SCH (20:54)
[2018-11-05] MEDS: ACETAMINOPHEN 500 MG TAB PO SCH ×3 (03:50→20:15)
[2018-11-05] MEDS: oxyCODONE IR 15 MG TAB PO PRN ×4 (05:14→20:49)
[2018-11-05] MEDS: LEVOTHYROXINE 25 MCG TAB PO SCH (05:14)
[2018-11-05] MEDS: KETOROLAC 30 MG/1 ML SDV IVP SCH ×4 (05:31→18:01)
[2018-11-05] MEDS: VENLAFAXINE XR 150 MG CAP PO SCH ×2 (08:52→21:21)
[2018-11-05] MEDS: PANTOPRAZOLE SODIUM 40 MG VIAL IVP SCH (08:52)
[2018-11-05] MEDS: LISINOPRIL 10 MG TAB PO SCH (08:52)
[2018-11-05] MEDS: NS 1,000 ML IV SCH (08:52)
[2018-11-05 10:07] LABS: PLATELET COUNT 299 10^3/uL (150-400)
--- NOTE | 2018-11-05 10:25 | SOAPPROG ---
SOAP Progress Note Assessment/Plan: Assessment: s/p right hemicolectomy for cecal volvulus Doing quite well but still weak Likely home tomorrow when pain controlled, tolerating diet and ambulating easier S: No BM since bloody BM passed. Pain with moving side to side. No nausea O: Lying in bed, appears somewhat uncomfortable when moving side to side CTAB RRR Bowel sounds present soft non tender and non distended Dressing dry and intact Plan: 11/05/18 10:20 Objective: Vital Signs Temp Pulse Resp BP Pulse Ox 36.8 C 92 16 120/74 95 11/05/18 08:30 11/05/18 08:30 11/05/18 08:30 11/05/18 08:52 11/05/18 08:30 Laboratory Results 11/05/18 09:55 11/04/18 11/05/18 11/06/18 05:59 05:59 05:59 Intake Total 4311 1716 Balance 2791 1716 ICD10 Worksheet Patient Problems: Problems Problem Status Onset Abdominal pain Acute Hyponatremia Acute Volvulus Acute Back pain Acute Diskitis Acute
[2018-11-05] MEDS ORDERED: POTASSIUM CL 20 MEQ TAB PO ONE (10:46)
[2018-11-05] MEDS: FLUTICASONE NASAL 120 SPRAYS/16 GM MDI EACHNARE SCH (12:00)
--- NOTE | 2018-11-05 15:02 | HOSPPROG ---
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 Medicine has been consulted for management of hyponatremia. 1. 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 PO intake slowly improving - Strongly encouraged PO intake, can continue maintenance NS at 75ml/hr if not eating - Recheck daily - Discontinued spironolactone 2. Hypertension: BP better - Continue home lisinopril 3. Post-operative pain - Increase oxycodone 15 q4->q3h PRN, has IV dilaudid available as well 4. Loose stools: Suspect bowels starting to work. - If worsening, can check C diff 5. 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 Depression: Continue home seroquel, ativan and effexor. 7. Hypothyroid: TSH ok, continue LT4 replacement. We will continue to follow along. Subjective: Epidural out. Pain ok this morning but feels that her oxycodone wears off too quickly. Not wanting to get very much IV dilaudid. Had bloody bowel movement 2 nights ago but resolved. Objective: Vital Signs Temp Pulse Resp BP Pulse Ox 36.8 C 76 16 99/64 L 95 11/05/18 12:31 11/05/18 12:31 11/05/18 12:31 11/05/18 12:31 11/05/18 12:31 Laboratory Results 11/05/18 09:55 11/05/18 09:55 11/04/18 11/05/18 11/06/18 05:59 05:59 05:59 Intake Total 2791 1716 500 Balance 2791 1716 500 - Physical Exam Constitutional: no apparent distress, appears nourished, not in pain Eyes: PERRL, anicteric sclera, EOMI Ears, Nose, Mouth, Throat: moist mucous membranes, hearing normal, ears appear normal, no oral mucosal ulcers Cardiovascular: regular rate and rhythym, no murmur, rub, or gallop, No edema Respiratory: no respiratory distress, no rales or rhonchi, clear to auscultation Gastrointestinal: normoactive bowel sounds, soft, non-tender abdomen, no palpable masses, other (incision site healing well) Genitourinary: no bladder fullness, no bladder tenderness, no renal bruits Skin: no rashes or abrasions, no fluctuance, no induration Musculoskeletal: full muscle strength, no muscle tenderness, normal joint ROM Neurologic: AAOx3, sensation intact bilaterally Psychiatric: interacting appropriately, not anxious, not encephalopathic, thought process linear ICD10 Worksheet Patient Problems: Problems Problem Status Onset Abdominal pain Acute Hyponatremia Acute Volvulus Acute Back pain Acute Diskitis Acute
[2018-11-05] MEDS: HYDROmorphONE/DILAUDID 1 MG/ML INJ IVP PRN ×2 (16:39→21:21)
[2018-11-05] MEDS: KETOROLAC 15 MG/1 ML SDV IVP SCH (18:03)
[2018-11-05] MEDS: ENOXAPARIN 40 MG/0.4 ML SYR SC SCH (21:20)
[2018-11-05] MEDS: QUEtiapine FUMARATE 25 MG TAB PO SCH (21:21)
[2018-11-05] MEDS: LORazepam 1 MG TAB PO SCH (21:21)
[2018-11-06] MEDS: KETOROLAC 15 MG/1 ML SDV IVP SCH ×5 (00:35→23:59)
[2018-11-06] MEDS: oxyCODONE IR 15 MG TAB PO PRN ×6 (00:35→21:11)
[2018-11-06] MEDS: HYDROmorphONE/DILAUDID 1 MG/ML INJ IVP PRN ×2 (00:40→19:38)
[2018-11-06] MEDS: NS 1,000 ML IV SCH ×2 (04:41→23:59)
[2018-11-06] MEDS: ACETAMINOPHEN 500 MG TAB PO SCH ×3 (04:41→20:34)
[2018-11-06] MEDS: LEVOTHYROXINE 25 MCG TAB PO SCH (04:42)
[2018-11-06] MEDS: LISINOPRIL 10 MG TAB PO SCH (08:45)
[2018-11-06] MEDS: PANTOPRAZOLE SODIUM 40 MG VIAL IVP SCH (08:45)
[2018-11-06] MEDS: VENLAFAXINE XR 150 MG CAP PO SCH ×2 (08:45→20:35)
[2018-11-06] MEDS: FLUTICASONE NASAL 120 SPRAYS/16 GM MDI EACHNARE SCH (08:46)
--- NOTE | 2018-11-06 09:09 | HOSPPROG ---
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 Medicine has been consulted for management of hyponatremia. 1. Hyponatremia: Still in low 130s, which is her baseline. Was initially hypovolemic and this is improving. - Can dc IVF and encourage liberal PO intake - Discontinued spironolactone, do not resume at discharge - Recommend getting serum sodium check 1 week after discharge 2. Hypertension: BP controlled - Continue home lisinopril 3. Abdominal distention - Agree with bowel regimen 4. Cecal volvulus with SBO: Now s/p right colon resection with Dr Gillespie - Pain management per surgery primary 6. Depression: Continue home seroquel, ativan and effexor. 7. Hypothyroid: TSH ok, continue LT4 replacement. We will continue to follow along. Ok to discharge from medicine stand point. Subjective: Feeling short of breath at times. No cough, no fevers. Still having some abdominal pain/bloating but stable. Had small BM, no diarrhea. Objective: Vital Signs Temp Pulse Resp BP Pulse Ox 36.8 C 104 H 18 126/83 H 90 L 11/06/18 08:00 11/06/18 08:00 11/06/18 08:00 11/06/18 08:45 11/06/18 08:00 Laboratory Results 11/05/18 09:55 11/06/18 07:53 11/05/18 11/06/18 11/07/18 05:59 05:59 05:59 Intake Total 1716 1700 Balance 1716 1700 - Physical Exam Constitutional: no apparent distress, appears nourished, not in pain Eyes: PERRL, anicteric sclera, EOMI Ears, Nose, Mouth, Throat: moist mucous membranes, hearing normal, ears appear normal, no oral mucosal ulcers Cardiovascular: regular rate and rhythym, no murmur, rub, or gallop, No edema Respiratory: no respiratory distress, no rales or rhonchi, clear to auscultation Gastrointestinal: tenderness (very mild diffusely), distension, other (incision c/d/i) Genitourinary: no bladder fullness, no bladder tenderness, no renal bruits Skin: no rashes or abrasions, no fluctuance, no induration Musculoskeletal: full muscle strength, no muscle tenderness, normal joint ROM Neurologic: AAOx3, sensation intact bilaterally Psychiatric: interacting appropriately, not anxious, not encephalopathic, thought process linear ICD10 Worksheet Patient Problems: Problems Problem Status Onset Abdominal pain Acute Hyponatremia Acute Volvulus Acute Back pain Acute Diskitis Acute
[2018-11-06] MEDS ORDERED: BISACODYL 10 MG SUPP PR PRN (10:53)
[2018-11-06] MEDS ORDERED: LACTULOSE 20 GM/30 ML UDCUP PO PRN (10:53)
[2018-11-06] MEDS ORDERED: POLYETHYLENE GLYCOL 3350 17 GM PKT PO PRN (10:53)
--- NOTE | 2018-11-06 11:41 | SOAPPROG ---
SOAP Progress Note Assessment/Plan: Assessment: s/p right hemicolectomy for cecal volvulus Still did not have BM. Will do bowel protocol Likely home tomorrow when pain controlled, tolerating diet S: Still passing flatus. No nausea O: Lying in bed, appears much more comfortable than yesterday CTAB RRR Bowel sounds present soft non tender - more distension than yesterday but still soft Incision clean dry and intact Plan: 11/05/18 10:20 11/06/18 11:39 Objective: Vital Signs Temp Pulse Resp BP Pulse Ox 37.0 C 92 18 110/80 90 L 11/06/18 11:16 11/06/18 11:16 11/06/18 11:16 11/06/18 11:16 11/06/18 11:16 Laboratory Results 11/05/18 09:55 11/06/18 07:53 11/05/18 11/06/18 11/07/18 05:59 05:59 05:59 Intake Total 1716 1700 Balance 1716 1700 ICD10 Worksheet Patient Problems: Problems Problem Status Onset Abdominal pain Acute Hyponatremia Acute Volvulus Acute Back pain Acute Diskitis Acute
[2018-11-06] MEDS: MAGNESIUM HYDROXIDE 30 ML UDCUP PO PRN (12:30)
[2018-11-06] MEDS: LORazepam 1 MG TAB PO SCH (20:34)
[2018-11-06] MEDS: QUEtiapine FUMARATE 25 MG TAB PO SCH (20:35)
[2018-11-06] MEDS: ENOXAPARIN 40 MG/0.4 ML SYR SC SCH (20:35)
[2018-11-06] MEDS: SENNOSIDES/DOCUSATE SODIUM TAB PO SCH (20:35)
[2018-11-07] MEDS: ACETAMINOPHEN 500 MG TAB PO SCH ×4 (07:10→20:43)
[2018-11-07] MEDS: LEVOTHYROXINE 25 MCG TAB PO SCH (07:13)
[2018-11-07] MEDS: oxyCODONE IR 15 MG TAB PO PRN ×4 (07:14→20:46)
[2018-11-07] MEDS: LISINOPRIL 10 MG TAB PO SCH (09:04)
[2018-11-07] MEDS: HYDROmorphONE/DILAUDID 1 MG/ML INJ IVP PRN (09:05)
[2018-11-07] MEDS: VENLAFAXINE XR 150 MG CAP PO SCH ×2 (09:05→20:40)
[2018-11-07] MEDS: PANTOPRAZOLE SODIUM 40 MG VIAL IVP SCH (09:06)
[2018-11-07] MEDS: FLUTICASONE NASAL 120 SPRAYS/16 GM MDI EACHNARE SCH (09:27)
[2018-11-07] MEDS: SENNOSIDES/DOCUSATE SODIUM TAB PO SCH ×2 (09:28→20:39)
--- NOTE | 2018-11-07 10:26 | SOAPPROG ---
SOAP Progress Note Assessment/Plan: Assessment/Plan: 63 Y F s/p right hemicolectomy for cecal volvulus. Seen with Dr. Bragg this am. Ileus. Seems to be improving, although still some distention. Passing occasional gas. Will trial advancing of diet. On bowel protocol. Pain. Under control. OOB, ambulate. Dispo: pending tolerance of diet. S: No nausea. No BM. Burping. Rare gas. mmmO: Lying in bed, appears much comfortable no wob RRR Bowel sounds present softly bloated, non tender Incision clean dry and intact 11/07/18 10:23 Objective: Vital Signs Temp Pulse Resp BP Pulse Ox 36.5 C 101 H 16 108/74 94 11/07/18 08:28 11/07/18 08:28 11/07/18 08:28 11/07/18 08:28 11/07/18 09:25 Laboratory Results 11/05/18 09:55 11/06/18 07:53 11/06/18 11/07/18 11/08/18 05:59 05:59 05:59 Intake Total 1700 1500 924 Balance 1700 1500 924 ICD10 Worksheet Patient Problems: Problems Problem Status Onset Abdominal pain Acute Hyponatremia Acute Volvulus Acute Back pain Acute Diskitis Acute
--- NOTE | 2018-11-07 12:57 | HOSPPROG ---
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 Medicine has been consulted for management of hyponatremia. ? PE: tachy w clear lungs and hypoxia stat CT angio of chest 1. Hyponatremia: Still in low 130s, which is her baseline. Was initially hypovolemic and this is improving. - Can dc IVF and encourage liberal PO intake - Discontinued spironolactone, do not resume at discharge - Recommend getting serum sodium check 1 week after discharge 2. Hypertension: BP controlled - Continue home lisinopril 3. Abdominal distention - Agree with bowel regimen no peritoneal signs, hypoactive bowel sounds. suspect ileus 4. Cecal volvulus with SBO: Now s/p right colon resection with Dr Gillespie - Pain management per surgery primary 6. Depression: Continue home seroquel, ativan and effexor. 7. Hypothyroid: TSH ok, continue LT4 replacement. Subjective: case d/w [facility], surgery PA. tachcyardic and hypoxic Objective: Vital Signs Temp Pulse Resp BP Pulse Ox 36.5 C 111 H 16 134/95 H 92 11/07/18 08:28 11/07/18 11:17 11/07/18 11:17 11/07/18 11:17 11/07/18 11:17 Laboratory Results 11/05/18 09:55 11/06/18 07:53 11/06/18 11/07/18 11/08/18 05:59 05:59 05:59 Intake Total 1700 1500 924 Balance 1700 1500 924 - Physical Exam Constitutional: no apparent distress, appears nourished Eyes: PERRL, anicteric sclera Ears, Nose, Mouth, Throat: moist mucous membranes, hearing normal Cardiovascular: regular rate and rhythym, no murmur, rub, or gallop Respiratory: other (increase work of breathing. clear lungs) Gastrointestinal: other (mild distension w hypoactive bowel sounds) Genitourinary: no bladder fullness, hemorrhoids Musculoskeletal: full muscle strength, no muscle tenderness Neurologic: AAOx3 ICD10 Worksheet Patient Problems: Problems Problem Status Onset Abdominal pain Acute Hyponatremia Acute Volvulus Acute Back pain Acute Diskitis Acute
[2018-11-07] MEDS ORDERED: IOPAMIDOL (ISOVUE 370) 100 ML BTL IV ONE (13:17)
[2018-11-07] MEDS: NS 1,000 ML IV SCH (14:01)
[2018-11-07] MEDS ORDERED: FUROSEMIDE 40 MG/4 ML VIAL IVP ONE ×2 (14:11→17:45)
--- NOTE | 2018-11-07 16:29 | CPEKG ---
Test Reason : OPEN Blood Pressure : / mmHG Vent. Rate : 121 BPM Atrial Rate : 121 BPM P-R Int : 168 ms QRS Dur : 083 ms QT Int : 306 ms P-R-T Axes : 044 002 -43 degrees QTc Int : 434 ms Sinus tachycardia Low voltage, extremity and precordial leads Compared with 08/26/2010, HR faster. Low voltage now present Confirmed by Lolly Jose ([id number]) on 11/07/2018 4:28:50 PM Referred By: Confirmed By:Lolly Jose
[2018-11-07] MEDS: IPRATROPIUM/ALBUTEROL 3 ML DEYVIAL IH SCH ×2 (16:42→20:43)
[2018-11-07] MEDS: ENOXAPARIN 40 MG/0.4 ML SYR SC SCH (20:40)
[2018-11-07] MEDS: QUEtiapine FUMARATE 25 MG TAB PO SCH (20:40)
[2018-11-07] MEDS: LORazepam 1 MG TAB PO SCH ×2 (20:40→21:00)
[2018-11-08] MEDS: LEVOTHYROXINE 25 MCG TAB PO SCH (04:43)
[2018-11-08 04:45] LABS: PLATELET COUNT 380 10^3/uL (150-400)
[2018-11-08] MEDS: oxyCODONE IR 15 MG TAB PO PRN (05:15)
--- NOTE | 2018-11-08 09:52 | HOSPPROG ---
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 Medicine has been consulted for management of hyponatremia. ? PE: nt seen on CT pulm infiltrates: air bronchograms on CT (images interp by me) difficult to differentiate between atelectasis and infiltrate but given clinical picture will treat as HCAP sepsis: tachycardia and source (lungs and/or abdoment) lactate pending ?alcohol withdrawal: i dont think she is in withdrawal. tachycardia and h/o moderate daily alcohol noted, but not tremulous or hypertensive 1. Hyponatremia: fell w diuretics follow daily volume overload: has anasarca but not clearly intravascularly overloaded. hold lasix and fluids 2. Hypertension: BP controlled - Continue home lisinopril 3. Abdominal distention - Agree with bowel regimen no peritoneal signs, hypoactive bowel sounds. suspect ileus 4. Cecal volvulus with SBO: Now s/p right colon resection with Dr Gillespie - Pain management per surgery primary 6. Depression: Continue home seroquel, ativan and effexor. 7. Hypothyroid: TSH ok, continue LT4 replacement. Subjective: case d/w dr ramirez Objective: Vital Signs Temp Pulse Resp BP Pulse Ox 36.9 C 110 H 28 H 138/94 H 94 11/08/18 08:09 11/08/18 08:09 11/08/18 08:09 11/08/18 08:09 11/08/18 08:09 Laboratory Results 11/08/18 04:34 11/08/18 04:34 11/07/18 11/08/18 11/09/18 05:59 05:59 05:59 Intake Total 1500 3033 Balance 1500 3033 - Physical Exam Constitutional: no apparent distress, appears nourished, other (alert, slightly confused. perhaps better than yesterday) Eyes: PERRL, anicteric sclera Ears, Nose, Mouth, Throat: moist mucous membranes, hearing normal Cardiovascular: regular rate and rhythym, no murmur, rub, or gallop Respiratory: no respiratory distress, other (crackels and decreased breath sounds at bases) Gastrointestinal: No guarding, No rebound Genitourinary: No grier in urethra Skin: warm, normal color Musculoskeletal: full muscle strength Neurologic: other (no tremor or tongue fasiculations), No AAOx3 ICD10 Worksheet Patient Problems: Problems Problem Status Onset Abdominal pain Acute Hyponatremia Acute Volvulus Acute Back pain Acute Diskitis Acute
--- NOTE | 2018-11-08 09:53 | SOAPPROG ---
SOAP Progress Note Assessment/Plan: Assessment: 63yo F s/p ex-lap, RHC for cecal volvulus - tachy - distended abdomen, really no bowel sounds - WBC 10 - reviewed CT from yesterday, no PE. Small abd free air - starting abx per IM - CT abdomen today Plan: 11/03/18 09:06 11/08/18 09:49 11/08/18 09:53 Subjective: more confused Objective: Vital Signs Temp Pulse Resp BP Pulse Ox 36.9 C 110 H 28 H 138/94 H 94 11/08/18 08:09 11/08/18 08:09 11/08/18 08:09 11/08/18 08:09 11/08/18 08:09 Laboratory Results 11/08/18 04:34 11/08/18 04:34 11/07/18 11/08/18 11/09/18 05:59 05:59 05:59 Intake Total 1500 3033 Balance 1500 3033 ICD10 Worksheet Patient Problems: Problems Problem Status Onset Abdominal pain Acute Hyponatremia Acute Volvulus Acute Back pain Acute Diskitis Acute
[2018-11-08] MEDS: FLUTICASONE NASAL 120 SPRAYS/16 GM MDI EACHNARE SCH (09:54)
[2018-11-08] MEDS: MAGNESIUM HYDROXIDE 30 ML UDCUP PO PRN (09:54)
[2018-11-08] MEDS: VENLAFAXINE XR 150 MG CAP PO SCH ×2 (09:54→22:19)
[2018-11-08] MEDS: LISINOPRIL 10 MG TAB PO SCH (09:54)
[2018-11-08] MEDS: SENNOSIDES/DOCUSATE SODIUM TAB PO SCH ×2 (09:55→22:19)
[2018-11-08] MEDS: PANTOPRAZOLE SODIUM 40 MG VIAL IVP SCH (09:55)
[2018-11-08] MEDS: IPRATROPIUM/ALBUTEROL 3 ML DEYVIAL IH SCH ×3 (11:47→23:05)
[2018-11-08] MEDS ORDERED: IOPAMIDOL (ISOVUE 370) 75 ML BTL IV ONE ×2 (12:12)
[2018-11-08] MEDS ORDERED: LR 1,000 ML IV ONE (14:08)
[2018-11-08] MEDS: ACETAMINOPHEN 500 MG TAB PO SCH ×2 (14:26→22:17)
[2018-11-08] MEDS: PIPERACILLIN/TAZO 3.375 GM/DEX 50 ML IV SCH ×3 (14:35→23:49)
--- NOTE | 2018-11-08 14:52 | PDANEPAE ---
ANE History of Present Illness Exploratory laparotomy ANE Past Medical History - Pulmonary History Hx Oxygen in Use at Home: No Hx Sleep Apnea: No Sleep Apnea Screening Result - Last Documented: Negative - Endocrine History Hx Diabetes: No - GI History Hx Gastrointestinal Disorders: Yes Gastrointestinal History Comment: SBO, leak - Chronic Pain History Chronic Pain: Yes (r/t back sx/neck) ANE Review of Systems Review of systems is: negative Review of Systems: - Exercise capacity Exercise capacity: limited by disability ANE Patient History - Allergies Allergies/Adverse Reactions: No Known Drug Allergies Allergy (Unknown, Verified 04/17/17 13:53) - Home Medications Home medications: home medication list seen and reviewed Home Medications: LORazepam [Ativan 2 mg tab] 2 mg PO HS 04/17/17 [Last Taken 04/16/17] QUEtiapine FUMARATE [Seroquel 25 mg (*)] 50 mg PO HS 04/17/17 [Last Taken ] Ibuprofen [Motrin (*)] 400 mg PO TID PRN 11/01/18 [Last Taken Unknown] Oxycodone Ir 10mg 10 mg PO TID PRN 11/01/18 [Last Taken 11/01/18 10:30] Spironolactone [Aldactone 50 MG (RX)] 50 mg PO BID 11/01/18 [Last Taken Unknown] Tretinoin [Retin-A] 1 ras TP DAILY PRN 11/01/18 [Last Taken Unknown] Venlafaxine Xr [Effexor Xr] 150 mg PO BID 11/01/18 [Last Taken 11/01/18 09:00] Lisinopril [Zestril 10 mg (*)] 10 mg PO DAILY 11/03/18 [Last Taken Unknown] - NPO status NPO Status: no food or drink >8 hours NPO Since - Liquids (Date): 11/08/18 NPO Since - Liquids (Time): 12:30 NPO Since - Solids (Date): 11/07/18 NPO Since - Solids (Time): 18:00 - Anes Hx Anes Hx: no prior problems - Smoking Hx Smoking Status: Never smoked - Alcohol Use Alcohol Use: Occasionally - Family Anes Hx Family Anes Hx: none ANE Labs/Vital Signs - Labs Result Diagrams: 11/08/18 04:34 11/08/18 04:34 - Vital Signs Vital Signs: reviewed preoperatively; see RN documention for details Blood Pressure: 141/101 Heart Rate: 108 Respiratory Rate: 16 O2 Sat (%): 94 Height: 162.56 cm Weight: 55.7 kg ANE Physical Exam - Airway Neck exam: FROM Mallampati Score: Class 2 Mouth exam: poor dentition - Pulmonary Pulmonary: no respiratory distress - Cardiovascular Cardiovascular: regular rate and rhythym - ASA Status ASA Status: III, E ANE Anesthesia Plan Anesthesia Plan: general endotracheal anesthesia (RSI)
[2018-11-08] MEDS ORDERED: MIDAZOLAM 2 MG/2 ML VIAL IVP ONE (14:53)
[2018-11-08] MEDS ORDERED: ONDANSETRON 4 MG/2 ML VIAL ONE (15:11)
[2018-11-08] MEDS ORDERED: DEXAMETHASONE 4 MG/ML VIAL ONE (15:11)
[2018-11-08] MEDS ORDERED: LIDOCAINE 2% 100 MG/5 ML SYR ONE (15:11)
[2018-11-08] MEDS ORDERED: fentaNYL 250 MCG/5 ML INJ ONE (15:11)
[2018-11-08] MEDS ORDERED: PROPOFOL 200 MG/20 ML VIAL ONE (15:11)
[2018-11-08] MEDS ORDERED: ROCURONIUM 50 MG/5 ML VIAL ONE (15:11)
[2018-11-08] MEDS ORDERED: BUPIVACAINE/EPI 0.5% 30 ML SDV ONE (15:23)
--- NOTE | 2018-11-08 15:52 | ASMTCMCOM ---
CM Note CM Note Notes: Pt continues to have medical needs. Back to surgery today. CM to follow if needs arise. Plan: TBD after surgery. Likely independent. Date Signed: 11/08/2018 03:52 PM Electronically Signed By:DERRICK Lundberg
[2018-11-08] MEDS ORDERED: SUGAMMADEX SODIUM 200 MG/2 ML VIAL IVP ONE (17:16)
[2018-11-08] MEDS ORDERED: HYDROmorphONE/DILAUDID 6 MG/30 ML PCA IV PRN (17:22)
[2018-11-08] MEDS ORDERED: NALOXONE HCL 0.4 MG/ML INJ IVP PRN (17:22)
--- NOTE | 2018-11-08 17:36 | POSTOPPROG ---
Post Op Note Date of Operation: 11/08/18 Surgeon: Antonino Bragg Rehab Nursing Tech: Jody Conway Anesthesiologist: Jeromy Moran Anesthesia: GET(General Endotracheal) Pre-op Diagnosis: MS change, free air. recent cecal volvulus with bowel resection Post-op Diagnosis: same, peritonitis, staple line leak Procedure: laparotomy, ileocolonic resection, omental patch, 6 L peritoneal lavage Findings: feculent abdominal fluid with leak at staple line Inf/Abcess present in the surg proc area at time of surgery?: Yes Depth: Organ Space EBL: Minimal Complications: none Drains: Osito Gleason, Wound Vac Specimen(s): ileocolonic resection to path and swab for culture
[2018-11-08] MEDS ORDERED: KETOROLAC 15 MG/1 ML SDV IVP SCH (18:00)
[2018-11-08] MEDS: HYDROmorphONE/DILAUDID 1 MG/ML INJ IVP PRN (20:12)
[2018-11-08] MEDS: D5W NS 1,000 ML IV SCH (20:24)
[2018-11-08] MEDS: QUEtiapine FUMARATE 25 MG TAB PO SCH (21:00)
[2018-11-09] MEDS: HYDROmorphONE/DILAUDID 1 MG/ML INJ IVP PRN ×4 (00:06→06:37)
[2018-11-09] MEDS: ENOXAPARIN 40 MG/0.4 ML SYR SC SCH ×2 (00:09→21:12)
[2018-11-09] MEDS ORDERED: BENZOCAINE UNIT DOSE SPRAY HURRICAINE MM PRN (01:13)
[2018-11-09 05:34] LABS: PLATELET COUNT 355 10^3/uL (150-400)
[2018-11-09 05:45] LABS: INR 1.17 (0.83-1.16); PROTIME(PATIENT) 15.1 SEC (12.0-15.0)
[2018-11-09] MEDS: IPRATROPIUM/ALBUTEROL 3 ML DEYVIAL IH SCH (05:54)
[2018-11-09] MEDS: D5W NS 1,000 ML IV SCH ×2 (06:30→17:46)
[2018-11-09] MEDS: PIPERACILLIN/TAZO 3.375 GM/DEX 50 ML IV SCH ×3 (06:30→18:45)
[2018-11-09] MEDS: oxyCODONE IR 15 MG TAB PO PRN (06:31)
[2018-11-09] MEDS: LEVOTHYROXINE 25 MCG TAB PO SCH (06:31)
[2018-11-09] MEDS: ACETAMINOPHEN 500 MG TAB PO SCH ×3 (06:38→21:10)
--- NOTE | 2018-11-09 07:50 | SOAPPROG ---
SOAP Progress Note Assessment/Plan: Assessment/Plan: 63 Y F s/p right hemicolectomy for cecal volvulus, POD#8. s/p laparotomy c ileocolonic resection and peritoneal lavage for anastomotic leak, POD#1. Ileus. Continue NGT, IVF. Consider PICC and TPN tomorrow if no bowel function/ sounds between now and then. Discussed with pharmacy. Pain. Had pushes overnight. FOOD TECHNOLOGIST held 2/2 confusion. Patient more clear this am. Will start FOOD TECHNOLOGIST. Adding toradol. Wound. Vac change tomorrow. D/c grier. Ok to restart VTE ppx, lovenox ordered. Contamination. Zosyn. Cultures pending. Continue JANEEN drain. HBP. Defer to hospitalist. Appreciate input and care. Discussed with RN. Dispo: pending. S: sore throat. spray worked last night. no flatus O: alert, oriented, appropriate conversation no wob, ctab anteriorly RRR no BS. less distended, appropriately tender wound vac to suction drain is serosanguinous 11/09/18 07:53 Objective: Vital Signs Temp Pulse Resp BP Pulse Ox 36.5 C 91 18 166/106 H 94 11/09/18 04:00 11/09/18 05:18 11/09/18 04:00 11/09/18 05:18 11/09/18 04:00 Microbiology 11/08/18 16:05 Gram Stain - Final Abdomen - Aspirate Laboratory Results 11/09/18 05:10 11/09/18 05:10 11/08/18 11/09/18 11/10/18 05:59 05:59 05:59 Intake Total 3033 1923 Output Total 1210 Balance 3033 713 PT 15.1 SEC (12.0-15.0) H 11/09/18 05:10 INR 1.17 (0.83-1.16) H 11/09/18 05:10 ICD10 Worksheet Patient Problems: Problems Problem Status Onset Abdominal pain Acute Hyponatremia Acute Volvulus Acute Back pain Acute Diskitis Acute
[2018-11-09] MEDS: PHENOL 177 ML THROAT SPRAY PO PRN ×2 (09:06→17:34)
[2018-11-09] MEDS: SENNOSIDES/DOCUSATE SODIUM TAB PO SCH ×2 (09:07→21:11)
[2018-11-09] MEDS: PANTOPRAZOLE SODIUM 40 MG TAB PO SCH (09:07)
[2018-11-09] MEDS: VENLAFAXINE XR 150 MG CAP PO SCH ×2 (09:08→21:10)
[2018-11-09] MEDS: LISINOPRIL 10 MG TAB PO SCH (09:09)
[2018-11-09] MEDS: FLUTICASONE NASAL 120 SPRAYS/16 GM MDI EACHNARE SCH (09:10)
[2018-11-09] MEDS: KETOROLAC 15 MG/1 ML SDV IVP SCH ×3 (09:18→17:36)
[2018-11-09] MEDS: HYDROmorphONE/DILAUDID 6 MG/30 ML PCA IV PRN (09:24)
--- NOTE | 2018-11-09 09:39 | HOSPPROG ---
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 Medicine has been consulted for management of hyponatremia. anastamotic leak w peritonitis: polymicrobial gram stain on zosyn add fluconazole s/p operative repair and lavage, p[ostop day 1 ? PE: nt seen on CT pulm infiltrates: air bronchograms on CT (images interp by me) difficult to differentiate between atelectasis and infiltrate but given clinical picture will treat as HCAP in retrospect, source of clinical decomp is leak sepsis: tachycardia and source (lungs and/or abdoment) lactate pending ?alcohol withdrawal: i dont think she is in withdrawal. tachycardia and h/o moderate daily alcohol noted, but not tremulous or hypertensive encephalopathy an d vitals improved w addressing leak not withdrawal Hyponatremia: fell w diuretics follow daily 129 today proph: lmwh volume overload: has anasarca but not clearly intravascularly overloaded. hold lasix and fluids 11/09 Hypertension: BP controlled - Continue home lisinopril Cecal volvulus with SBO: Now s/p right colon resection with Dr Gillespie - Pain management per surgery primary postop day 8 Depression: Continue home seroquel, ativan and effexor. Hypothyroid: TSH ok, continue LT4 replacement. Subjective: case d/w dr ramirez. ct images reviewed/interp by me. more alert and and less confused today Objective: Vital Signs Temp Pulse Resp BP Pulse Ox 36.5 C 88 18 166/103 H 90 L 11/09/18 08:00 11/09/18 08:00 11/09/18 08:00 11/09/18 09:09 11/09/18 08:00 Microbiology 11/08/18 16:05 Gram Stain - Final Abdomen - Aspirate Laboratory Results 11/09/18 05:10 11/09/18 05:10 11/08/18 11/09/18 11/10/18 05:59 05:59 05:59 Intake Total 3033 1923 Output Total 1210 Balance 3033 713 PT 15.1 SEC (12.0-15.0) H 11/09/18 05:10 INR 1.17 (0.83-1.16) H 11/09/18 05:10 - Physical Exam Constitutional: no apparent distress, appears nourished Eyes: PERRL, anicteric sclera Ears, Nose, Mouth, Throat: moist mucous membranes, hearing normal Cardiovascular: regular rate and rhythym, no murmur, rub, or gallop, No tachycardia Respiratory: no respiratory distress, no rales or rhonchi Gastrointestinal: other (midline incision w wound vac, no cellulitis. hypoactive bowel sounds. less distended) Genitourinary: grier in urethra Skin: warm, normal color Musculoskeletal: full muscle strength Neurologic: AAOx3 ICD10 Worksheet Patient Problems: Problems Problem Status Onset Abdominal pain Acute Hyponatremia Acute Volvulus Acute Back pain Acute Diskitis Acute
[2018-11-09] MEDS: FLUCONAZOLE/NaCl 100 ML IV SCH (11:36)
--- NOTE | 2018-11-09 13:35 | ASMTCMCOM ---
CM Note CM Note Notes: Patient plan of care reviewed in interdisciplinary rounds. 63 year old female s/p abdominal surgery for volvulus and subsequent surgery for anastomosis leak now with wound vac. CM to follow for needs, Wound vac to be changed tomorrow. Plan: TBD Date Signed: 11/09/2018 01:35 PM Electronically Signed By:Sidra Zhang RN
[2018-11-09] MEDS: LORazepam 1 MG TAB PO SCH (21:11)
[2018-11-09] MEDS: QUEtiapine FUMARATE 25 MG TAB PO SCH (21:11)
[2018-11-10] MEDS: KETOROLAC 15 MG/1 ML SDV IVP SCH ×5 (00:17→23:32)
[2018-11-10] MEDS: PIPERACILLIN/TAZO 3.375 GM/DEX 50 ML IV SCH ×5 (00:18→23:33)
[2018-11-10] MEDS: D5W NS 1,000 ML IV SCH (03:38)
[2018-11-10] MEDS: ACETAMINOPHEN 500 MG TAB PO SCH ×3 (03:41→21:35)
[2018-11-10] MEDS: LEVOTHYROXINE 25 MCG TAB PO SCH (05:14)
[2018-11-10 08:41] LABS: PLATELET COUNT 356 10^3/uL (150-400)
[2018-11-10] MEDS ORDERED: ALTEPLASE 2 MG VIAL IVP PRN (09:19)
[2018-11-10] MEDS ORDERED: D10W 1,000 ML IV PRN (09:21)
[2018-11-10] MEDS: PHENOL 177 ML THROAT SPRAY PO PRN ×2 (09:42→11:08)
[2018-11-10] MEDS: HYDROmorphONE/DILAUDID 1 MG/ML INJ IVP PRN (09:50)
--- NOTE | 2018-11-10 09:53 | SOAPPROG ---
SOAP Progress Note Assessment/Plan: Assessment/plan: 63 y/o F s/p right hemicolectomy for cecal volvulus, POD#9. s/p laparotomy c ileocolonic resection and peritoneal lavage for anastomotic leak, POD#2 Abx for contamination Ileus. Continue NPO, NGT, IVF. PICC placement today and start TPN. Neuro: dilaudid pushes for pain. Wound: wound vac to suction over laparotomy wound. Fascia closed. Wound vac change tomorrow. VTE ppx: lovenox HTN, hyponatremia: defer to hospitalist S: Not feeling well. Throat irritation from NG tube. Denies passing gas, but feeling rumbling. O: Alert Afebrile NG tube in place with 200cc out overnight. RRR ctab, no increased wob Abdomen: soft, moderately distended, appropriately ttp, wound vac to suction, hypoactive BS, JANEEN drain with serosang drainage 11/10/18 09:44 Objective: Vital Signs Temp Pulse Resp BP Pulse Ox 36.8 C 92 20 153/101 H 94 11/10/18 08:00 11/10/18 08:00 11/10/18 08:00 11/10/18 08:00 11/10/18 08:00 Microbiology 11/08/18 16:05 Gram Stain - Final Abdomen - Aspirate Laboratory Results 11/10/18 08:25 11/09/18 11/10/18 11/11/18 05:59 05:59 05:59 Intake Total 1923 3019.8 Output Total 1210 1150 Balance 713 1869.8 PT 15.1 SEC (12.0-15.0) H 11/09/18 05:10 INR 1.17 (0.83-1.16) H 11/09/18 05:10 ICD10 Worksheet Patient Problems: Problems Problem Status Onset Abdominal pain Acute Hyponatremia Acute Volvulus Acute Back pain Acute Diskitis Acute
[2018-11-10] MEDS: PANTOPRAZOLE SODIUM 40 MG TAB PO SCH (09:54)
[2018-11-10] MEDS: SENNOSIDES/DOCUSATE SODIUM TAB PO SCH ×2 (09:54→21:36)
[2018-11-10] MEDS: VENLAFAXINE XR 150 MG CAP PO SCH ×2 (09:54→21:36)
[2018-11-10] MEDS: LISINOPRIL 10 MG TAB PO SCH (09:54)
[2018-11-10 10:10] LABS: PLATELET COUNT 364 10^3/uL (150-400)
[2018-11-10 10:19] LABS: INR 1.26 (0.83-1.16)
[2018-11-10] MEDS: HYDROmorphONE/DILAUDID 6 MG/30 ML PCA IV PRN ×2 (10:29→19:49)
[2018-11-10] MEDS: FLUTICASONE NASAL 120 SPRAYS/16 GM MDI EACHNARE SCH (10:38)
[2018-11-10] MEDS: FLUCONAZOLE/NaCl 100 ML IV SCH (11:18)
[2018-11-10] MEDS ORDERED: D5W NS 1,000 ML IV SCH ×2 (12:30→21:00)
--- NOTE | 2018-11-10 13:13 | HOSPPROG ---
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 Medicine has been consulted for management of hyponatremia. anastamotic leak w peritonitis: polymicrobial gram stain on zosyn add fluconazole s/p operative repair and lavage, p[ostop day 2 11/10- more abd pain but exam reassuring in the sense that she has bowel sounds quite tender discussed w dr ramirez reflux: increase protonix to bid ? PE: nt seen on CT pulm infiltrates: air bronchograms on CT (images interp by me) difficult to differentiate between atelectasis and infiltrate but given clinical picture will treat as HCAP in retrospect, source of clinical decomp is leak sepsis: tachycardia and source (lungs and/or abdoment) lactate pending ?alcohol withdrawal: i dont think she is in withdrawal. tachycardia and h/o moderate daily alcohol noted, but not tremulous or hypertensive encephalopathy an d vitals improved w addressing leak not withdrawal Hyponatremia: fell w diuretics follow daily 129 today proph: lmwh volume overload: has anasarca but not clearly intravascularly overloaded. hold lasix and fluids 11/09 Hypertension: BP controlled - Continue home lisinopril Cecal volvulus with SBO: Now s/p right colon resection with Dr Gillespie - Pain management per surgery primary postop day 8 Depression: Continue home seroquel, ativan and effexor. Hypothyroid: TSH ok, continue LT4 replacement. Subjective: case d/w dr ramirez. more pain today Objective: Vital Signs Temp Pulse Resp BP Pulse Ox 36.9 C 89 18 160/108 H 93 11/10/18 11:29 11/10/18 11:29 11/10/18 11:29 11/10/18 11:29 11/10/18 11:29 Microbiology 11/08/18 16:05 Gram Stain - Final Abdomen - Aspirate Laboratory Results 11/10/18 09:54 11/10/18 07:20 11/09/18 11/10/18 11/11/18 05:59 05:59 05:59 Intake Total 1923 3019.8 Output Total 1210 1150 150 Balance 713 1869.8 -150 PT 16.0 SEC (12.0-15.0) H 11/10/18 09:54 INR 1.26 (0.83-1.16) H 11/10/18 09:54 - Physical Exam Constitutional: appears nourished, No no apparent distress Eyes: PERRL, anicteric sclera Ears, Nose, Mouth, Throat: moist mucous membranes, hearing normal Cardiovascular: regular rate and rhythym, no murmur, rub, or gallop, tachycardia Respiratory: no respiratory distress, other (crackles ar bases b/l) Gastrointestinal: other (incision c/d/i. bowel sounds present. tender) Genitourinary: No grier in urethra Skin: warm, normal color Musculoskeletal: full muscle strength, no muscle tenderness Neurologic: AAOx3, sensation intact bilaterally Psychiatric: interacting appropriately ICD10 Worksheet Patient Problems: Problems Problem Status Onset Abdominal pain Acute Hyponatremia Acute Volvulus Acute Back pain Acute Diskitis Acute
--- NOTE | 2018-11-10 13:26 | GOP ---
DATE OF OPERATION: 11/08/2018 SURGEON: Antonino Bragg MD CAREER INFORMATION SPECIALIST: Jody Conway, PAC ANESTHESIA: General endotracheal. ANESTHESIOLOGIST: Dr. Jeromy Moran. PREOPERATIVE DIAGNOSIS: Intraabdominal free air and fluid consistent with leak. POSTOPERATIVE DIAGNOSIS: Leak from anastomotic site with secondary peritonitis and fecalized materia l throughout the abdomen. PROCEDURE PERFORMED: Exploratory laparotomy , resection of previous ileocolonic anastomosis with new ileocolonic anastomosis, omental patch, and abdominal washout. FINDINGS: Feculent abdominal fluid throughout the abdomen. Leak site was identified on the colonic side of the anastomosis. The previous anastomosis was removed. A new ileocolonic anastomosis was th en fashioned in a [id number] functional end-to-end fashion and successfully oversewn. INDICATIONS: This is a 63-year-old female who 6 days ago underwent ileal colonic resection for cecal volvulus. She was progressing well, however, developed abdominal distention, tachycardia, had a CT scan which showed a gross amount of intraabdominal free and free fluid consistent with leak. DESCRIPTION OF PROCEDURE: The patient was greeted in the preoperative suite. Once again, risks, mendel efits, and alternatives were discussed. Consent was signed. She was then brought back to the operat merlin suite, placed on the OR table in supine position. After all anesthesia machines, including SCDs were on and functioning, a [employer] time-out was performed. After successful induct ion of general anesthesia, the patient's abdomen was prepped and draped in typical sterile fashion. I commenced the procedure by first removing the previous roberta and then going in through the previo us midline incision. Immediately upon entering the abdomen, feculent fluid was identified, cultures of which were taken. After the contamination was successfully evacuated. I identified the previous anastomosis, which had multiple holes on the colonic end. They were initially clamped off with Glass man bowel clamps. Defects were made on both the small bowel and colonic side and the previous anasto mosis was successfully stapled off both proximally and distally. The mesentery was taken with a Harm onic scalpel and the specimen was passed off. I then let the blind ends of both the small bowel and large bowel back into the patient's abdomen and lavaged the abdomen with 3 liters of sterile saline. After successful lavage, I interrogated both t he small and large bowel. I felt that the blood supply was adequate and that the bowel wall was soft and supple enough for anastomosis. I then brought these 2 ends together in a qahy-to-tzta fashion. Enterotomies and colotomies were made and I fashioned a common colon enterotomy using a single fire of the SANTOS 75 blue load. The common enterotomy was then closed with an additional fire of the staple r. Staple lines were then oversewn. The omentum was just adjacent to this and I fashion an omental patch by bringing it over the anastomosis and securing it to the opposite side of the small and large bowel. Mesentery was then closed with a running 3-0 Vicryl stitch. I then irrigated the abdomen again with an additional 3 liters of sterile saline noting clear effluent in the suction canister. I interrogat ed the remainder of the abdomen and found no other significant pathology. I brought in a 15 flat JANEEN through a separate stab incision in the right lower quadrant. It was allowed to lay along the right pericolic gutter and up around the liver. It was attached to the skin with an interrupted silk stitc h. It was at this point in time that a clean closure tray was brought in. Gowns and gloves were changed with brand new instruments. The fascia was reapproximated with a running #1 PDS suture. The wound VAC was then brought it and placed to the subcutaneous tissue and attached to suction appropriately. The patient was then extubated in the operative suite and placed in the PACU in satisfactory conditi on. COUNTS: All counts were reported as correct x2. /[id number]/MODL
--- NOTE | 2018-11-10 16:54 | ASMTCMCOM ---
CM Note CM Note Notes: Patient plan of care reviewed in am round. She is recovering from her surgery for volvulus then secondarily to anastomosis leak, Wound vac in place. To start TPN. CM to follow for needs. Plan: TBD Date Signed: 11/10/2018 04:54 PM Electronically Signed By:Sidra Zhang RN
[2018-11-10] MEDS: LORazepam 1 MG TAB PO SCH (21:36)
[2018-11-10] MEDS: QUEtiapine FUMARATE 25 MG TAB PO SCH (21:37)
[2018-11-10] MEDS: PANTOPRAZOLE SODIUM 40 MG VIAL IVP SCH (21:38)
[2018-11-10] MEDS: ENOXAPARIN 40 MG/0.4 ML SYR SC SCH (21:40)
[2018-11-10] MEDS: TPN 1 EA BAG IV SCH (21:55)
[2018-11-11] MEDS: ACETAMINOPHEN 500 MG TAB PO SCH ×3 (03:11→18:05)
[2018-11-11] MEDS: LEVOTHYROXINE 25 MCG TAB PO SCH (05:29)
[2018-11-11] MEDS: PHENOL 177 ML THROAT SPRAY PO PRN (05:30)
[2018-11-11] MEDS: KETOROLAC 15 MG/1 ML SDV IVP SCH ×3 (05:39→17:20)
[2018-11-11] MEDS: PIPERACILLIN/TAZO 3.375 GM/DEX 50 ML IV SCH ×3 (05:40→17:20)
[2018-11-11 05:46] LABS: PLATELET COUNT 361 10^3/uL (150-400)
[2018-11-11 05:54] LABS: INR 1.24 (0.83-1.16); PROTIME(PATIENT) 15.8 SEC (12.0-15.0)
[2018-11-11] MEDS ORDERED: PANTOPRAZOLE SODIUM 40 MG VIAL IVP SCH (09:00)
[2018-11-11] MEDS: POTASSIUM Cl (KCl) 100 ML IV SCH ×4 (09:15→13:35)
[2018-11-11] MEDS: PANTOPRAZOLE SODIUM 40 MG VIAL IVP SCH ×2 (09:15→20:30)
--- NOTE | 2018-11-11 09:33 | SOAPPROG ---
SOAP Progress Note Assessment/Plan: Assessment: 63yo F s/p ex-lap, RHC for cecal volvulus s/p takeback for leak, re-anastomosis - intermittently tachy, BP has been high side - TPN - abdomen soft, JANEEN serosang and scant. VAC min, change today. Still no real bowel sounds - cont NPO, NGT with high output, need to continue. She is taking water and ice chips. 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 Plan: 11/03/18 09:06 11/08/18 09:49 11/08/18 09:53 11/11/18 09:32 Subjective: still confused, Objective: Vital Signs Temp Pulse Resp BP Pulse Ox 36.7 C 92 18 145/110 H 97 11/11/18 07:03 11/11/18 07:03 11/11/18 07:03 11/11/18 07:03 11/11/18 07:03 Microbiology 11/08/18 16:05 Gram Stain - Final Abdomen - Aspirate Laboratory Results 11/11/18 05:36 11/11/18 05:36 11/10/18 11/11/18 11/12/18 05:59 05:59 05:59 Intake Total 3019.8 1922.6 992 Output Total 1150 1315 Balance 1869.8 607.6 992 PT 15.8 SEC (12.0-15.0) H 11/11/18 05:36 INR 1.24 (0.83-1.16) H 11/11/18 05:36 ICD10 Worksheet Patient Problems: Problems Problem Status Onset Abdominal pain Acute Hyponatremia Acute Volvulus Acute Back pain Acute Diskitis Acute
[2018-11-11] MEDS: FLUTICASONE NASAL 120 SPRAYS/16 GM MDI EACHNARE SCH (09:43)
[2018-11-11] MEDS: LISINOPRIL 10 MG TAB PO SCH (09:43)
[2018-11-11] MEDS: VENLAFAXINE XR 150 MG CAP PO SCH ×2 (09:44→20:27)
[2018-11-11] MEDS: SENNOSIDES/DOCUSATE SODIUM TAB PO SCH ×2 (09:44→20:28)
[2018-11-11] MEDS: FLUCONAZOLE/NaCl 100 ML IV SCH (10:09)
[2018-11-11] MEDS: HYDROmorphONE/DILAUDID 6 MG/30 ML PCA IV PRN ×2 (10:58→19:48)
--- NOTE | 2018-11-11 14:32 | WOCRNPDOC ---
WOCRN Advanced Assessment Note - Skin Integrity Problem, Advanced Assess Medial Abdomen Surgical Wound/Incision Dressing Type: Black Vac Foam, Wound Vac Dressing Description: Clean/Dry, Intact Closure Description: Not Approximated Exudate Amount: Scant Exudate Color: Reddish/Yellow Exudate Characteristic(s): Serosanguinous Integumentary Issue Intervention: Dressing Changed Joana Wound Tissue: Intact, Painful/Tender Wound Bed Color: [place], Yellow Wound Bed Constitution: Smooth Tissue, Red/Independent [place] - Non Granular Tissue, Subcutaneous Fat Wound Edges: Attached, Well Defined Site Measurement - Head-to-Toe Length X Width X Depth (cm): 9x2.2x0.4 Skin Integrity Problem Comment: MD Bragg in room for vac removal. Once vac removed wound bed cleaned with NS and gauze. Skin prep applied to joana-wound tissue and draped. 1 piece of small black simplace foam placed in wound bed with another piece to create landing for trac pad. Good seal achieved at - 125mmHg suction. Patient tolerated the procedure well. Patient educated to plan to change vac MWF. All questions answered. Wound care will round again on Wednesday.
--- NOTE | 2018-11-11 14:41 | HOSPPROG ---
Hospitalist Progress Note Assessment/Plan: DIAGNOSES: * acute volvulus leading to peritonitis ischemic bowel, status post partial bowel resection for that; the postoperative leak and peritonitis leading to 2nd surgery for clean out, wound open with wound VAC in place but looks good at this time * acute hypoxemic respiratory failure largely related to bilateral pleural effusions and atelectasis; ? If pneumonia also present * acute sepsis * hyponatremia * volume overload after resuscitation and due to nutritional issues * chronic hypertension with acute blood pressure elevations here at this time, likely aggravated by pain and anxiety * chronic depression/anxiety disorder At this time is making progress after 2nd surgery, up walking better in the hallway, no emesis, hopefully can get NG tube out. However she remains quite debilitated in quite a bit of pain with ongoing antibiotics for peritonitis and ongoing wound care with open wound wound VAC. In terms of respiratory status I think increasing her mobility and using incentive spirometry will be big. Would like to reassess the effusions In terms of hypertension anxiety and depression, I do not think she is likely absorbing her oral rim medicines reliably and will order some IV medicines PLANS: * Continue current antibiotics * Continue current wound care * Continue increase activity as able * Nutrition with TPN at this time hopefully can begin some oral nutrition at sometime in the near future * Will add IV medicines for anxiety and blood pressure * Chest x-ray to reassess pleural effusions, consider thoracentesis if 1 of them is particularly large Seen by me today on hospitals rounds and multidisciplinary rounds SUBJECTIVE: Complains of ongoing abdominal pain, increased with activity Some flatus No nausea or vomiting today No fever symptoms today Fairly anxious OBJECTIVE Vitals reviewed: Hypertension is persistently present at this time, 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 There is no current sign of infection or necrosis and there is good sign of vascular supply and healing limbs warm, no edema iv site ok Lab data: Slight drop in hemoglobin to 10, white blood cell count remains elevated unchanged Potassium remains a bit low, sugar in good range, otherwise chemistries unremarkable Microbiology data: Yeast feces in Gram stain from abdominal aspirates not yet identified,multiple g negatives with pending sensitivities Blood cultures no growth to date. I reviewed images of her CT scan of chest from November 07, there is significant bilateral pleural effusion with significant atelectasis. Hard to rule out any infiltrate but appears mostly to be compressive changes from effusions and abdominal pain supine position etc Objective: Vital Signs Temp Pulse Resp BP Pulse Ox 36.7 C 85 1 L 162/109 H 94 11/11/18 07:03 11/11/18 14:00 11/11/18 14:00 11/11/18 10:00 11/11/18 14:00 Microbiology 11/08/18 16:05 Gram Stain - Final Abdomen - Aspirate Laboratory Results 11/11/18 05:36 11/11/18 05:36 11/10/18 11/11/18 11/12/18 06:59 06:59 06:59 Intake Total 3019.8 2914.6 Output Total 1150 1315 Balance 1869.8 1599.6 PT 15.8 SEC (12.0-15.0) H 11/11/18 05:36 INR 1.24 (0.83-1.16) H 11/11/18 05:36 - Time Spent With Patient Time Spent with Patient: greater than 35 minutes Time Spent with Patient: Greater than 35 minutes spent on this patients care, greater than 50% of time spent counseling, educating, and coordinating care regarding the above mentioned plan. ICD10 Worksheet Patient Problems: Problems Problem Status Onset Abdominal pain Acute Hyponatremia Acute Volvulus Acute Back pain Acute Diskitis Acute
--- NOTE | 2018-11-11 15:18 | ASMTCMCOM ---
CM Note CM Note Notes: OT and PT evals completed; they have recommended no services following d/c. They both indicated pt may need support from family. CM will follow. D/C Plan: Anticipate independent. Date Signed: 11/11/2018 03:17 PM Electronically Signed By:Autumn hPillips
[2018-11-11] MEDS: hydrALAZINE 20 MG/ML VIAL IVP SCH (17:20)
[2018-11-11] MEDS: LORazepam 2 MG/ML INJ IVP PRN ×2 (17:20→20:27)
[2018-11-11] MEDS: MELATONIN 3 MG TAB PO SCH (20:26)
[2018-11-11] MEDS: ENOXAPARIN 40 MG/0.4 ML SYR SC SCH (20:26)
[2018-11-11] MEDS: QUEtiapine FUMARATE 25 MG TAB PO SCH (20:27)
[2018-11-11] MEDS ORDERED: D5W NS 1,000 ML IV SCH (21:00)
[2018-11-11] MEDS: TPN 1 EA BAG IV SCH (21:28)
[2018-11-12] MEDS: hydrALAZINE 20 MG/ML VIAL IVP SCH ×4 (00:28→17:42)
[2018-11-12] MEDS: KETOROLAC 15 MG/1 ML SDV IVP SCH ×2 (00:29→05:21)
[2018-11-12] MEDS: PIPERACILLIN/TAZO 3.375 GM/DEX 50 ML IV SCH ×4 (00:29→17:42)
[2018-11-12] MEDS: LORazepam 2 MG/ML INJ IVP PRN ×5 (03:23→21:01)
[2018-11-12] MEDS: LEVOTHYROXINE 25 MCG TAB PO SCH (05:22)
[2018-11-12] MEDS: ACETAMINOPHEN 500 MG TAB PO SCH ×3 (05:26→22:05)
[2018-11-12 06:10] LABS: INR 1.14 (0.83-1.16); PROTIME(PATIENT) 14.8 SEC (12.0-15.0)
[2018-11-12 06:31] LABS: PLATELET COUNT 443 10^3/uL (150-400)
[2018-11-12] MEDS: VENLAFAXINE XR 150 MG CAP PO SCH ×2 (08:15→21:01)
[2018-11-12] MEDS: FLUCONAZOLE/NaCl 100 ML IV SCH (08:16)
[2018-11-12] MEDS: PANTOPRAZOLE SODIUM 40 MG VIAL IVP SCH ×2 (08:16→21:01)
[2018-11-12] MEDS: FLUTICASONE NASAL 120 SPRAYS/16 GM MDI EACHNARE SCH (08:27)
[2018-11-12] MEDS: SENNOSIDES/DOCUSATE SODIUM TAB PO SCH ×2 (08:27→22:05)
[2018-11-12] MEDS ORDERED: MAGNESIUM SULF 1 GM/DEXTROSE 100 ML IV ONE (09:00)
[2018-11-12] MEDS: HYDROmorphONE/DILAUDID 6 MG/30 ML PCA IV PRN ×2 (09:12→19:52)
--- NOTE | 2018-11-12 09:16 | SOAPPROG ---
SOAP Progress Note Assessment/Plan: Assessment: 63yo F s/p ex-lap, RHC for cecal volvulus s/p takeback for leak, re-anastomosis - vitals about the same - pain still pretty constant 7/10, lot more anxious today - abdomen is soft, JANEEN minimal and serosang. Having good bowel sounds and BM - clears - WBC 17k today? unclear as her belly is improving, could certainly have abscess but would wait for rescan Plan: 11/03/18 09:06 11/08/18 09:49 11/08/18 09:53 11/11/18 09:32 11/12/18 09:14 Subjective: anxious, having bowel function Objective: Vital Signs Temp Pulse Resp BP Pulse Ox 36.6 C 88 24 H 159/109 H 93 11/12/18 08:04 11/12/18 08:04 11/12/18 08:04 11/12/18 08:04 11/12/18 08:04 Microbiology 11/08/18 16:05 Gram Stain - Final Abdomen - Aspirate Laboratory Results 11/12/18 05:43 11/12/18 05:43 11/11/18 11/12/18 11/13/18 05:59 05:59 05:59 Intake Total 1922.6 3172 Output Total 1315 820 Balance 607.6 2352 PT 14.8 SEC (12.0-15.0) 11/12/18 05:43 INR 1.14 (0.83-1.16) 11/12/18 05:43 ICD10 Worksheet Patient Problems: Problems Problem Status Onset Abdominal pain Acute Hyponatremia Acute Volvulus Acute Back pain Acute Diskitis Acute
[2018-11-12] MEDS: POTASSIUM Cl (KCl) 100 ML IV SCH ×3 (10:45→13:53)
--- NOTE | 2018-11-12 14:26 | HOSPPROG ---
Hospitalist Progress Note Assessment/Plan: DIAGNOSES: * acute volvulus leading to peritonitis ischemic bowel, status post partial bowel resection for that; the postoperative leak and peritonitis leading to 2nd surgery for clean out, wound open with wound VAC in place but looks good at this time * peritonitis with cultures growing unidentified yeast (on Diflucan), enterobacter E coli and Enterococcus faecalis are all sensitive to the Zosyn she is receiving * acute hypoxemic respiratory failure largely related to bilateral pleural effusions and atelectasis, concern about some possible pulmonary edema developing at this time * acute sepsis * hyponatremia * volume overload after resuscitation and due to nutritional issues * chronic hypertension with acute blood pressure elevations here at this time, likely aggravated by pain and anxiety * chronic depression/anxiety disorder with significant anxiety here at this time Higher pulse rate and WBC today of some concern. The pain across her back along with epigastric tenderness raise a question of whether she might be developing some pancreatitis or other retroperitoneal process. Her respirations are a bit more labored and she has more rales today, wonder she is getting some pulmonary edema though yesterday's chest x-ray showed notable decrease in pleural effusions from the most recent prior imaging PLANS: * Continue current antibiotics and antifungal, follow fungal cultures * Continue current wound care * Continue increase activity as able * Nutrition with TPN at this time hopefully can begin some oral nutrition at sometime in the near future * Continue IV medicines for anxiety and blood pressure * Stat chest x-ray now to reassess lungs, may need some diuresis at this point, I think she would probably tolerated * Stat lipase to assess for possible pancreatitis Seen by me today on hospitalist rounds and multidisciplinary rounds SUBJECTIVE: Remains anxious Today complains of increased pain across her mid back and also some epigastric pain Is taking in some clear liquids, had bowel movement this morning, also flatus No chills or sweats She is unable to say whether she feels short of breath or not Has not been up for a walk yet today OBJECTIVE Vitals reviewed: Blood pressure still high, vitals otherwise stable overall, no fever 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, 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: Sinus Exam: alert slightly disoriented today skin warm dry color ok resps mildly labored lungs diffuse rales are somewhat increased today heart regular abd soft bowel sounds present; notably tender today in the epigastrium, drain next good, wound VAC and wound looks good limbs warm, still some edema of both legs and arms as well iv site ok Lab data: Potassium 3.3, rest of comprehensive metabolic panel normal White blood cell count higher today at 17,000, hemoglobin stable Microbiology data: Yeast feces in Gram stain from abdominal aspirates not yet identified, multiple g negatives with pending sensitivities Blood cultures no growth to date. I reviewed images of her CT scan of chest from November 07, there is significant bilateral pleural effusion with significant atelectasis. Hard to rule out any infiltrate but appears mostly to be compressive changes from effusions and abdominal pain supine position etc Objective: Vital Signs Temp Pulse Resp BP Pulse Ox 36.6 C 120 H 19 155/109 H 94 11/12/18 13:08 11/12/18 13:08 11/12/18 13:08 11/12/18 13:08 11/12/18 13:08 Microbiology 11/08/18 16:05 Gram Stain - Final Abdomen - Aspirate Laboratory Results 11/12/18 05:43 11/12/18 05:43 11/11/18 11/12/18 11/13/18 06:59 06:59 06:59 Intake Total 2914.6 2180 Output Total 1315 820 Balance 1599.6 1360 PT 14.8 SEC (12.0-15.0) 11/12/18 05:43 INR 1.14 (0.83-1.16) 11/12/18 05:43 - Time Spent With Patient Time Spent with Patient: greater than 35 minutes Time Spent with Patient: Greater than 35 minutes spent on this patients care, greater than 50% of time spent counseling, educating, and coordinating care regarding the above mentioned plan. ICD10 Worksheet Patient Problems: Problems Problem Status Onset Abdominal pain Acute Hyponatremia Acute Volvulus Acute Back pain Acute Diskitis Acute
[2018-11-12] MEDS ORDERED: FUROSEMIDE 20 MG/2 ML VIAL IVP ONE (15:23)
[2018-11-12] MEDS: QUEtiapine FUMARATE 25 MG TAB PO SCH (21:01)
[2018-11-12] MEDS: MELATONIN 3 MG TAB PO SCH (21:01)
[2018-11-12] MEDS: ENOXAPARIN 40 MG/0.4 ML SYR SC SCH (21:02)
[2018-11-12] MEDS: TPN 1 EA BAG IV SCH (22:05)
[2018-11-13] MEDS: hydrALAZINE 20 MG/ML VIAL IVP SCH ×4 (00:22→17:19)
[2018-11-13] MEDS: PHENOL 177 ML THROAT SPRAY PO PRN ×2 (00:22→05:41)
[2018-11-13] MEDS: PIPERACILLIN/TAZO 3.375 GM/DEX 50 ML IV SCH ×4 (00:23→17:22)
[2018-11-13] MEDS: ACETAMINOPHEN 500 MG TAB PO SCH ×2 (04:37→12:00)
[2018-11-13] MEDS: LORazepam 2 MG/ML INJ IVP PRN ×3 (05:40→20:41)
[2018-11-13] MEDS: LEVOTHYROXINE 25 MCG TAB PO SCH (05:40)
[2018-11-13 06:00] LABS: PLATELET COUNT 470 10^3/uL (150-400)
[2018-11-13 06:09] LABS: INR 1.16 (0.83-1.16)
--- NOTE | 2018-11-13 08:23 | HOSPPROG ---
Hospitalist Progress Note Assessment/Plan: DIAGNOSES: * suspect acute pancreatitis with new mid back pain, high lipase; * acute volvulus leading to peritonitis ischemic bowel, status post partial bowel resection for that; the postoperative leak and peritonitis leading to 2nd surgery for clean out, wound open with wound VAC in place but looks good at this time * peritonitis with cultures growing unidentified yeast (on Diflucan), enterobacter E coli and Enterococcus faecalis are all sensitive to the Zosyn she is receiving * acute hypoxemic respiratory failure largely related to bilateral pleural effusions and atelectasis, concern about some possible pulmonary edema developing at this time * acute sepsis * hyponatremia * volume overload after resuscitation and due to nutritional issues * chronic hypertension with acute blood pressure elevations here at this time, likely aggravated by pain and anxiety * chronic depression/anxiety disorder with significant anxiety here at this time Higher pulse rate and WBC today of some concern. The pain across her back along with epigastric tenderness raise a question of whether she might be developing some pancreatitis or other retroperitoneal process. Her respirations are a bit more labored and she has more rales today, wonder she is getting some pulmonary edema though yesterday's chest x-ray showed notable decrease in pleural effusions from the most recent prior imaging PLANS: * check abd sono for ? stones * Dr. Bragg has ordered a CT scan of abdomen to assess for abscess or other complications * will check triglycerides now to be certain they have not gone up (goal to keep below about 460 while on TPN lipids with pancreatitis) * Recheck lipase now * Continue current antibiotics and antifungal, follow fungal cultures for sensitivity * Continue current wound care * Continue increase activity as able * Nutrition with TPN at this time hopefully can begin some oral nutrition at sometime in the near future * Continue IV medicines for anxiety and blood pressure Seen by me today on hospitalist rounds and multidisciplinary rounds I reviewed her case today with Dr. 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: Sinus Exam: Awake but groggy, a bit better oriented today skin warm dry color ok resps less labored lungs diffuse rales remain heart regular abd soft bowel sounds present; notably tender today in the epigastrium, drain next good, wound VAC and wound looks good limbs warm, still some edema of both legs and arms as well iv site ok Lab data: Lipase yesterday was 1454 Today alk-phos slightly high 140 basic met panel good, liver enzymes good White count higher 18.9, a bit more anemic at 8.8 Microbiology data: Yeast now identified as Mariann albicans in the peritoneal cultures, sensitivities pending 3 bacterial organisms from peritoneal cultures all sensitive to the Zosyn she is receiving Blood cultures no growth to date. Objective: Vital Signs Temp Pulse Resp BP Pulse Ox 36.6 C 105 H 18 144/96 H 98 11/13/18 07:55 11/13/18 07:55 11/13/18 07:55 11/13/18 07:55 11/13/18 07:55 Microbiology 11/08/18 16:05 Gram Stain - Final Abdomen - Aspirate Laboratory Results 11/13/18 05:40 11/13/18 05:40 11/12/18 11/13/18 11/14/18 06:59 06:59 06:59 Intake Total 2180 1380 Output Total 820 2460 Balance 1360 -1080 PT 15.0 SEC (12.0-15.0) 11/13/18 05:40 INR 1.16 (0.83-1.16) 11/13/18 05:40 ICD10 Worksheet Patient Problems: Problems Problem Status Onset Abdominal pain Acute Hyponatremia Acute Volvulus Acute Back pain Acute Diskitis Acute
[2018-11-13] MEDS: PANTOPRAZOLE SODIUM 40 MG VIAL IVP SCH ×2 (08:51→20:40)
[2018-11-13] MEDS: POTASSIUM Cl (KCl) 100 ML IV SCH ×2 (08:51→09:48)
[2018-11-13] MEDS: SENNOSIDES/DOCUSATE SODIUM TAB PO SCH ×2 (08:52→20:40)
[2018-11-13] MEDS: VENLAFAXINE XR 150 MG CAP PO SCH ×2 (08:52→20:41)
[2018-11-13] MEDS: FLUCONAZOLE/NaCl 100 ML IV SCH (09:49)
[2018-11-13] MEDS: FLUTICASONE NASAL 120 SPRAYS/16 GM MDI EACHNARE SCH (09:50)
--- NOTE | 2018-11-13 10:22 | SOAPPROG ---
SOAP Progress Note Assessment/Plan: Assessment: 63yo F s/p ex-lap, RHC for cecal volvulus s/p takeback for leak, re-anastomosis - still intermittently tachy, afebrile but on scheduled tylenol - abdominal exam actually looks good, she has good bowel sounds is still having bowel function and tolerating clears - WBC up to 18k, lipase is also mildly elevated - ?unclear why she looks worse. CT of abdomen, did have stool in belly so could very easily have abscess Plan: 11/03/18 09:06 11/08/18 09:49 11/08/18 09:53 11/11/18 09:32 11/12/18 09:14 11/13/18 10:20 Subjective: more confused Objective: Vital Signs Temp Pulse Resp BP Pulse Ox 36.6 C 105 H 18 144/96 H 98 11/13/18 07:55 11/13/18 07:55 11/13/18 07:55 11/13/18 07:55 11/13/18 07:55 Microbiology 11/08/18 16:05 Gram Stain - Final Abdomen - Aspirate Laboratory Results 11/13/18 05:40 11/13/18 05:40 11/12/18 11/13/18 11/14/18 05:59 05:59 05:59 Intake Total 3172 1380 Output Total 820 2460 Balance 2352 -1080 PT 15.0 SEC (12.0-15.0) 11/13/18 05:40 INR 1.16 (0.83-1.16) 11/13/18 05:40 ICD10 Worksheet Patient Problems: Problems Problem Status Onset Abdominal pain Acute Hyponatremia Acute Volvulus Acute Back pain Acute Diskitis Acute
[2018-11-13] MEDS: HYDROmorphONE/DILAUDID 1 MG/ML INJ IVP PRN (12:02)
[2018-11-13] MEDS: HYDROmorphONE/DILAUDID 6 MG/30 ML PCA IV PRN (12:37)
[2018-11-13] MEDS ORDERED: IOHEXOL 350mgI/ML (OMNIPAQUE) 150 ML BTL IV ONE (12:59)
[2018-11-13] MEDS: TPN 1 EA BAG IV SCH (20:35)
[2018-11-13] MEDS: ENOXAPARIN 40 MG/0.4 ML SYR SC SCH (20:39)
[2018-11-13] MEDS: QUEtiapine FUMARATE 25 MG TAB PO SCH (20:41)
[2018-11-13] MEDS: MELATONIN 3 MG TAB PO SCH (20:41)
[2018-11-14] MEDS: PIPERACILLIN/TAZO 3.375 GM/DEX 50 ML IV SCH ×5 (00:05→23:16)
[2018-11-14] MEDS: HYDROmorphONE/DILAUDID 6 MG/30 ML PCA IV PRN (00:37)
[2018-11-14] MEDS: ACETAMINOPHEN 500 MG TAB PO SCH ×4 (01:41→20:13)
[2018-11-14] MEDS: LORazepam 2 MG/ML INJ IVP PRN ×4 (02:18→21:12)
[2018-11-14 03:20] LABS: INR 1.21 (0.83-1.16); PROTIME(PATIENT) 15.5 SEC (12.0-15.0)
[2018-11-14 03:41] LABS: PLATELET COUNT 538 10^3/uL (150-400)
[2018-11-14] MEDS: LEVOTHYROXINE 25 MCG TAB PO SCH (05:42)
[2018-11-14] MEDS: hydrALAZINE 20 MG/ML VIAL IVP SCH ×3 (06:23→20:13)
--- NOTE | 2018-11-14 09:20 | HOSPPROG ---
Hospitalist Progress Note Assessment/Plan: DIAGNOSES: * acute pancreatitis in postop setting, ? etiology -it is possible that inflammation phlegmon from her peritonitis have irritated the pancreas and that as the cause, though it is possible this is a phlegmonous pancreatitis from another cause -no sign of stones, triglycerides normal -none of her medications cause pancreatitis them aware of but will ask pharmacy to review * acute volvulus leading to peritonitis ischemic bowel, status post partial bowel resection for that; the postoperative leak and peritonitis leading to 2nd surgery for clean out, wound open with wound VAC in place but looks good at this time * peritonitis with cultures growing unidentified yeast (on Diflucan), enterobacter E coli and Enterococcus faecalis are all sensitive to Zosyn * acute hypoxemic respiratory failure (pulmonary edema, pleural effusions, atelectasis) -improved significantly today * acute sepsis * hyponatremia mild, controlled with TPN * volume overload after resuscitation and due to nutritional issues * chronic hypertension blood pressure is now good, we are using IV hydralazine as opposed to lisinopril due to likely poor absorption * chronic depression/anxiety disorder with significant anxiety here at this time PLANS: * Continue current antibiotics and antifungal, follow fungal cultures for sensitivity * Continue current wound care * Will not diurese further at this time, but she may need more diuresis as we go along * Nutrition with TPN at this time; would not advance p.o. intake be on clear liquids due to what appears like possibly phlegmonous pancreatitis * Continue to follow triglycerides well on TPN * Continue IV medicines for anxiety and blood pressure * Continue increase activity as able Seen by me today on hospitalist rounds and multidisciplinary rounds I reviewed her case today with Dr. Antonino Bragg SUBJECTIVE: This morning states abdominal pain is a bit less, and not quite as short of breath However remains with quite a bit of pain and anxiety requiring significant medications for both+ Also complains of severe dry mouth which is irritated and painful OBJECTIVE Vitals reviewed: Still mildly tachycardic but better than yesterday, no fever Oxygen at 2 L Mangle Roller, my review: Sinus Exam: Awake but groggy, seems fairly uncomfortable and anxious at the moment skin warm dry color ok resps less labored lungs notably clearer today than yesterday heart regular abd soft bowel sounds present; again quite tender today in the epigastrium, drain looked good with serosanguineous I examined the wound at the bedside with wound care nurse as she removed the wound VAC, overall the wound looks excellent with no signs of infection dehiscence necrosis or other problems limbs warm, notably less edema iv site ok Lab data: Lipase down to 1000 Basic metabolic panel good Minimal elevation of transaminases and alk-phos Bilirubin remains normal White blood cell count down to 16,000 Hemoglobin has drifted down to 7.4 Microbiology data: Yeast now identified as Mairann albicans in the peritoneal cultures, sensitivities pending 3 bacterial organisms from peritoneal cultures all sensitive to the Zosyn she is receiving Blood cultures no growth to date. Imaging: I reviewed images from yesterday's CT abdomen in detail as well as the radiologist report, and I have discussed the findings with Dr. Bragg. There is some fluid, no evidence of active bleeding, and the fluid does not appear particularly complicated. There are some phlegmonous areas adjacent to pancreas. There are a couple areas were small-bowel is a bit more distended but no severe distension and no signs of obstruction. There is nothing that looks like an abscess I also reviewed the images and reports from the ultrasound which did not show any evidence of gallstones; as there was fluid in the upper abdomen in moderate amount there was some fluid around gallbladder but the gallbladder did not have thickening or other signs of infection or cholecystitis specifically Objective: Vital Signs Temp Pulse Resp BP Pulse Ox 36.8 C 102 H 18 136/87 H 89 L 11/14/18 07:24 11/14/18 07:24 11/14/18 07:24 11/14/18 07:24 11/14/18 07:24 Microbiology 11/08/18 09:10 Blood Culture - Final Blood 11/08/18 09:10 Blood Culture - Final Blood Laboratory Results 11/14/18 02:53 11/14/18 02:53 11/13/18 11/14/18 11/15/18 06:59 06:59 06:59 Intake Total 1380 2145 Output Total 2460 1630 Balance -1080 515 PT 15.5 SEC (12.0-15.0) H 11/14/18 02:53 INR 1.21 (0.83-1.16) H 11/14/18 02:53 - Time Spent With Patient Time Spent with Patient: greater than 35 minutes Time Spent with Patient: Greater than 35 minutes spent on this patients care, greater than 50% of time spent counseling, educating, and coordinating care regarding the above mentioned plan. ICD10 Worksheet Patient Problems: Problems Problem Status Onset Abdominal pain Acute Hyponatremia Acute Volvulus Acute Back pain Acute Diskitis Acute
[2018-11-14] MEDS: HYDROmorphONE/DILAUDID 1 MG/ML INJ IVP PRN ×9 (09:46→23:16)
[2018-11-14] MEDS: PANTOPRAZOLE SODIUM 40 MG VIAL IVP SCH ×2 (09:48→20:57)
[2018-11-14] MEDS: FLUCONAZOLE/NaCl 100 ML IV SCH (09:50)
[2018-11-14] MEDS: SENNOSIDES/DOCUSATE SODIUM TAB PO SCH ×2 (09:55→20:58)
[2018-11-14] MEDS: FLUTICASONE NASAL 120 SPRAYS/16 GM MDI EACHNARE SCH (09:55)
[2018-11-14] MEDS: VENLAFAXINE XR 150 MG CAP PO SCH ×2 (09:55→20:58)
--- NOTE | 2018-11-14 10:14 | WOCRNPDOC ---
ROSARIOCR[facility] Advanced Assessment Note - Skin Integrity Problem, Advanced Assess Medial Abdomen Surgical Wound/Incision Dressing Type: Black Vac Foam, Wound Vac Dressing Description: Clean/Dry, Intact Exudate Amount: Moderate Exudate Characteristic(s): Sanguinous Integumentary Issue Intervention: Dressing Changed Wound Bed Constitution: Granulation Tissue, Red/Hazen - Non Granular Tissue Wound Edges: Epithelizing Skin Integrity Problem Comment: Patient intermittently confused, calling for "mommy", and reporting pain. Used PEDIATRIC DENTIST with prompting but seems to forget to use it on her own. Wound bed is clean, however superior wound bed is dark red and has little granular tissue. Inferior wound bed is fully granulated and healing. Both are epithelizing. Cleaned with ns and gauze. Skin prep and draped joana wound. Small black simplace foam to wound bed and suction restarted at -125 mm Hg continuous with no leaks noted. Wound is quite shallow and vac can be D/C'd soon. Dr. Villanueva and Ryann RN visualized wound. Reported to Dr. Bragg. Next vac change
--- NOTE | 2018-11-14 14:18 | SOAPPROG ---
SOAP Progress Note Assessment/Plan: Assessment: 63yo F s/p ex-lap, RHC for cecal volvulus s/p takeback for leak, re-anastomosis - confused and intermittently tachy - WBC down to 16k today, Zosyn and fluc appear to be ok coverage. Will ask ID to assist with management, ? different fungal coverage - abdominal exam about the same. Distended, still having bowel function. JANEEN scant. Keep CLD - unclear why she is so out of it. Likely multifactorial, previous sepsis, pain control Plan: 11/03/18 09:06 11/08/18 09:49 11/08/18 09:53 11/11/18 09:32 11/12/18 09:14 11/13/18 10:20 11/14/18 14:17 Subjective: confused Objective: Vital Signs Temp Pulse Resp BP Pulse Ox 37.0 C 104 H 18 159/109 H 97 11/14/18 12:00 11/14/18 12:00 11/14/18 12:00 11/14/18 12:00 11/14/18 12:00 Microbiology 11/08/18 16:05 Gram Stain - Final Abdomen - Aspirate 11/08/18 09:10 Blood Culture - Final Blood 11/08/18 09:10 Blood Culture - Final Blood Laboratory Results 11/14/18 02:53 11/14/18 02:53 11/13/18 11/14/18 11/15/18 05:59 05:59 05:59 Intake Total 1380 2145 Output Total 2460 1630 750 Balance -1080 515 -750 PT 15.5 SEC (12.0-15.0) H 11/14/18 02:53 INR 1.21 (0.83-1.16) H 11/14/18 02:53 ICD10 Worksheet Patient Problems: Problems Problem Status Onset Abdominal pain Acute Hyponatremia Acute Volvulus Acute Back pain Acute Diskitis Acute
[2018-11-14] MEDS ORDERED: fentaNYL 25 MCG PATCH TD SCH (14:45)
[2018-11-14] MEDS ORDERED: HYDROmorphONE/DILAUDID 1 MG/ML INJ IVP ONE (14:45)
--- NOTE | 2018-11-14 17:23 | PDFACE2FAC ---
Face to Face Encounter 1. I certify that this patient is under my care and that I, or a nurse practitioner or physician's conference assistant working with me, had a [id number] encounter that meets the physician [id number] encounter requirements with this patient on 11/14/18. 2. I certify that based on my findings, the following services are medically necessary home health services: [X Nursing] [X Physical Therapy] [X Speech-Language Pathology] 3. The medical condition and clinical findings that support the need for specialized skills, knowledge and judgement of the above services are: [] 4. I certify this patient is homebound* because [the patient's condition restricts their ability to leave their home except with the assistance of another individual or the aid of a supportive device.] I certify that this patient is confined to his/her home and needs intermittent group home care, physical and/or speech therapy. This patient is under my care and I have authorized home health services. * Homebound is defined by Medicare as follows: absences from home require considerable and tacking effort and or for medical reasons or restorationism services or are infrequent or of short duration when for other reasons*.
--- NOTE | 2018-11-14 18:09 | HOSPPROG ---
Hospitalist Progress Note Assessment/Plan: I met at bedside this afternoon with the patient's significant other Ephraim and Dr Bragg. Long discussion about her condition, causes of lack of progress , treatment options and current plans. I then had another visit where we reviewed her pain management in detail. Numerous concerns re pain, confusion, her respirations, and other issues were addressed > 45 mins beyond the time I spent earlier on hospitalist rounds and multidisc rounds. Objective: Vital Signs Temp Pulse Resp BP Pulse Ox 37.0 C 100 19 153/113 H 94 11/14/18 12:00 11/14/18 15:59 11/14/18 15:59 11/14/18 15:59 11/14/18 15:59 Microbiology 11/08/18 16:05 Gram Stain - Final Abdomen - Aspirate 11/08/18 09:10 Blood Culture - Final Blood 11/08/18 09:10 Blood Culture - Final Blood Laboratory Results 11/14/18 02:53 11/14/18 02:53 11/13/18 11/14/18 11/15/18 06:59 06:59 06:59 Intake Total 1380 2145 Output Total 2460 1630 1900 Balance -1080 515 -1900 PT 15.5 SEC (12.0-15.0) H 11/14/18 02:53 INR 1.21 (0.83-1.16) H 11/14/18 02:53 ICD10 Worksheet Patient Problems: Problems Problem Status Onset Abdominal pain Acute Hyponatremia Acute Volvulus Acute Back pain Acute Diskitis Acute
[2018-11-14] MEDS: QUEtiapine FUMARATE 25 MG TAB PO SCH (20:57)
[2018-11-14] MEDS: MELATONIN 3 MG TAB PO SCH (20:57)
[2018-11-14] MEDS: TPN 1 EA BAG IV SCH (20:59)
[2018-11-14] MEDS: ENOXAPARIN 40 MG/0.4 ML SYR SC SCH (22:34)
[2018-11-15] MEDS: HYDROmorphONE/DILAUDID 1 MG/ML INJ IVP PRN ×6 (02:15→14:45)
[2018-11-15] MEDS: hydrALAZINE 20 MG/ML VIAL IVP SCH ×4 (02:19→20:58)
[2018-11-15] MEDS: ACETAMINOPHEN 500 MG TAB PO SCH ×4 (04:07→20:56)
[2018-11-15] MEDS: PIPERACILLIN/TAZO 3.375 GM/DEX 50 ML IV SCH ×3 (05:27→18:46)
[2018-11-15] MEDS: LEVOTHYROXINE 25 MCG TAB PO SCH (06:18)
[2018-11-15] MEDS: MBX SOLN 30 ML BOTTLE PO PRN ×4 (06:19→20:51)
--- NOTE | 2018-11-15 09:06 | HOSPPROG ---
Hospitalist Progress Note Assessment/Plan: DIAGNOSES: * acute volvulus leading to peritonitis ischemic bowel, status post partial bowel resection for that; postoperative leak and peritonitis leading to 2nd surgery for clean out and sort segment resection of bowel, wound open with wound VAC in place but looks good at this time * peritonitis with cultures growing unidentified yeast (on Diflucan), enterobacter E coli and Enterococcus faecalis are all sensitive to Zosyn * acute hypoxemic respiratory failure (pulmonary edema, pleural effusions, atelectasis) -improved significantly today * acute pancreatitis with phlegmon, in postop setting, ? etiology -no sign of stones, triglycerides normal -none of her medications cause pancreatitis * acute sepsis, resolved * hyponatremia mild, controlled with TPN * volume overload after resuscitation and due to nutritional issues -improved after diuresis * chronic pain syndrome with chronic prescribed narcotic use -difficult pain management here, seems improved with addition of a fentanyl patch and increased Dilaudid dose overnight * chronic hypertension -was not controlled on usual lisinopril, suspect absorption poor -currently with IV lisinopril * chronic depression/anxiety disorder with significant anxiety here PLANS: * Continue current Zosyn and Diflucan, follow fungal cultures for sensitivity ( SO has requested ID consult which is ordered) * Continue current wound care, wound VAC * No further diuresis at present * Nutrition with TPN at this time; would not advance from clear liquids due to pancreatitis at present * Continue to follow triglycerides while on TPN * Continue fentanyl patch, current Dilaudid dose * Continue increase activity as able Seen by me today on hospitalist rounds and multidisciplinary rounds I reviewed her case today with Dr. Antonino Bragg SUBJECTIVE: This morning states abdominal pain is a bit less, and not quite as short of breath However remains with quite a bit of pain and anxiety requiring significant medications for both+ Also complains of severe dry mouth which is irritated and painful OBJECTIVE Vitals reviewed: Still mildly tachycardic but better than yesterday, no fever Oxygen at 2 L through night, is on room air this morning Diamond Cleaver, my review: Sinus Exam: Awake but groggy, seems fairly uncomfortable and anxious at the moment skin warm dry color ok resps less labored lungs notably clearer today than yesterday heart regular abd soft bowel sounds present; again quite tender today in the epigastrium, drain looked good with serosanguineous I examined the wound at the bedside with wound care nurse as she removed the wound VAC, overall the wound looks excellent with no signs of infection dehiscence necrosis or other problems limbs warm, notably less edema iv site ok Lab data: Stable basic metabolic panel Blood sugars in good range Microbiology data: Yeast now identified as Mariann albicans in the peritoneal cultures, sensitivities pending 3 bacterial organisms from peritoneal cultures all sensitive to the Zosyn she is receiving Blood cultures no growth to date. Objective: Vital Signs Temp Pulse Resp BP Pulse Ox 36.4 C 93 13 115/77 92 11/14/18 19:24 11/15/18 04:00 11/15/18 04:00 11/15/18 04:00 11/15/18 04:00 Microbiology 11/08/18 16:05 Gram Stain - Final Abdomen - Aspirate 11/08/18 09:10 Blood Culture - Final Blood 11/08/18 09:10 Blood Culture - Final Blood Laboratory Results 11/14/18 02:53 11/15/18 04:15 11/14/18 11/15/18 11/16/18 06:59 06:59 06:59 Intake Total 2145 1400 Output Total 1630 2100 Balance 515 -700 PT 15.5 SEC (12.0-15.0) H 11/14/18 02:53 INR 1.21 (0.83-1.16) H 11/14/18 02:53 - Time Spent With Patient Time Spent with Patient: greater than 35 minutes Time Spent with Patient: Greater than 35 minutes spent on this patients care, greater than 50% of time spent counseling, educating, and coordinating care regarding the above mentioned plan. ICD10 Worksheet Patient Problems: Problems Problem Status Onset Abdominal pain Acute Hyponatremia Acute Volvulus Acute Back pain Acute Diskitis Acute
[2018-11-15] MEDS: PANTOPRAZOLE SODIUM 40 MG VIAL IVP SCH ×2 (09:45→20:58)
[2018-11-15] MEDS: VENLAFAXINE XR 150 MG CAP PO SCH ×2 (09:45→20:54)
[2018-11-15] MEDS: FLUCONAZOLE/NaCl 100 ML IV SCH (09:46)
[2018-11-15] MEDS: SENNOSIDES/DOCUSATE SODIUM TAB PO SCH ×2 (09:46→20:54)
[2018-11-15] MEDS: FLUTICASONE NASAL 120 SPRAYS/16 GM MDI EACHNARE SCH (09:48)
--- NOTE | 2018-11-15 10:18 | HOSPPROG ---
Hospitalist Progress Note Assessment/Plan: DIAGNOSES: * acute volvulus leading to peritonitis ischemic bowel, status post partial bowel resection for that; postoperative leak and peritonitis leading to 2nd surgery for clean out and sort segment resection of bowel, wound open with wound VAC in place but looks good at this time * peritonitis with cultures growing unidentified yeast (on Diflucan), enterobacter E coli and Enterococcus faecalis are all sensitive to Zosyn * acute hypoxemic respiratory failure (pulmonary edema, pleural effusions, atelectasis) -continues to improve with less sx's and less O2 need * acute pancreatitis with phlegmon, in postop setting, ? etiology -no sign of stones, triglycerides normal -none of her medications cause pancreatitis * acute sepsis, resolved * hyponatremia mild, controlled with TPN * volume overload after resuscitation and due to nutritional issues -improved after diuresis * chronic pain syndrome with chronic prescribed narcotic use -difficult pain management here, seems improved with addition of a fentanyl patch and increased Dilaudid dose overnight * chronic hypertension -was not controlled on usual lisinopril, suspect absorption poor -currently with IV lisinopril * chronic depression/anxiety disorder with significant anxiety here It is hard to determine how much of her pain is coming from peritonitis and how much from pancreatitis. I reviewed her case today with Dr. Aide Britton. Dr. Britton is recommending that we try to do a paracentesis for diagnostic and therapeutic fluid removal. Iris agree to look to see if they have portal to which they can remove fluid PLANS: * Continue current Zosyn and Diflucan, follow fungal cultures for sensitivity ( ID consult which is ordered) * Continue current wound care, wound VAC * No further diuresis at present * Nutrition with TPN at this time; would not advance from clear liquids due to pancreatitis at present * Continue to follow triglycerides while on TPN * Continue fentanyl patch, current Dilaudid dose as her pain is much better overnight and today so far. She is more alert and oriented today. 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, my review: Sinus Exam: Awake but groggy, seems fairly uncomfortable and anxious at the moment skin warm dry color ok resps less labored lungs still slight rales but overall clear heart regular abd soft bowel sounds present; again quite tender today in the epigastrium, drain looked good with serosanguineous Wound with wound VAC on, looks good limbs warm, no edema iv site ok Lab data: Stable basic metabolic panel, lipase pending Blood sugars in good range Microbiology data: Yeast now identified as Mariann albicans in the peritoneal cultures, sensitivities pending 3 bacterial organisms from peritoneal cultures all sensitive to the Zosyn she is receiving Blood cultures no growth to date. Objective: Vital Signs Temp Pulse Resp BP Pulse Ox 36.7 C 90 20 130/87 H 94 11/15/18 08:00 11/15/18 08:00 11/15/18 08:00 11/15/18 09:47 11/15/18 08:00 Microbiology 11/08/18 16:05 Gram Stain - Final Abdomen - Aspirate 11/08/18 09:10 Blood Culture - Final Blood 11/08/18 09:10 Blood Culture - Final Blood Laboratory Results 11/14/18 02:53 11/15/18 04:15 11/14/18 11/15/18 11/16/18 06:59 06:59 06:59 Intake Total 2145 1400 Output Total 1630 2100 Balance 515 -700 PT 15.5 SEC (12.0-15.0) H 11/14/18 02:53 INR 1.21 (0.83-1.16) H 11/14/18 02:53 - Time Spent With Patient Time Spent with Patient: greater than 35 minutes Time Spent with Patient: Greater than 35 minutes spent on this patients care, greater than 50% of time spent counseling, educating, and coordinating care regarding the above mentioned plan. ICD10 Worksheet Patient Problems: Problems Problem Status Onset Abdominal pain Acute Hyponatremia Acute Volvulus Acute Back pain Acute Diskitis Acute
[2018-11-15] MEDS: MICAFUNGIN NA 100 MG in NS 100 ML IV SCH (11:37)
[2018-11-15] MEDS ORDERED: LIDOCAINE 1% 300 MG/30 ML SDV ONE (12:04)
--- NOTE | 2018-11-15 13:29 | GCON ---
[f rep st] CONSULTATION INFECTIOUS DISEASE CONSULTATION REFERRING PHYSICIAN: Antonino Bragg MD REASON FOR CONSULTATION: Management of peritonitis. HISTORY OF PRESENT ILLNESS: This is a 63-year-old woman with a past medical history of hypothyroidism and hypertension who was admitted on November 01, to [facility] with epigastric pain radiating to the lower abdomen and nausea. She was found to have a small bowel obstruction and cecal volvulus and not amenable to NG decompression and was taken to the OR on the same day as admission. In the OR, she was found to have cecal volvulus, a small bowel obstruction, and underwent a right colon resection. Postoperatively, patient developed tachycardia and confusion and a CT angio was performed, 11/07/2018, that was negative for PE, had bilateral pleural effusions and there was free air in the abdomen. The following day, patient was started on sepsis protocol and empirically started on IV Zosyn, and a CT abdomen, pelvis was performed which showed pneumoperitoneum and an anastomotic leak. Patient was returned to the OR the same day, where she was found to have feculent peritonitis, a leak at the staple line. Patient underwent omental patch and ileocolonic resection. Cultures from the OR showed Mariann albicans, E faecalis, E coli and enterobacter. Patient was empirically started on IV fluconazole, 11/09/2018, and TPN on the , due to ongoing poor p.o. intake. ID is asked to consult as patient has had persistent abdominal pain, leukocytosis and fluctuating mental status, and antibiotic management is requested. A repeat CT scan was again performed due to slowly resolving symptoms on the , which showed persistent ascites, a possible phlegmon type collection in the mid abdomen adjacent to the pancreatic body with diffuse edema, some residual air bubbles, moderate bilateral pleural effusions. This was personally reviewed by me with Radiology. Today, patient states that her abdominal pain is slightly better. She has had frequent liquid bowel movements, some bloody (five were recorded yesterday). She denies respiratory symptoms or rash, but she is not a perfect historian as her ongoing intermittent confusion, although patient was oriented to person, place and time and situation at the time of my exam. PAST MEDICAL HISTORY: Anxiety, degenerative disk disease, depression, hypothyroidism, chronic back pain on chronic narcotics, history of urinary tract infection in 2014. PAST SURGICAL HISTORY: , lumbar diskectomy, fibroidectomy, foot surgery, bilateral knee replacements, rotator cuff repair on the right and tonsillectomy. ALLERGIES: NKDA. FAMILY HISTORY: Positive for alcoholism, atrial fibrillation, coronary artery disease. 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 She is . Never had tobacco. MEDICATIONS: Zosyn 3.375 g IV q.6h., started 11/08/2017; TPN; Seroquel; Effexor ; Protonix; fluconazole 200 mg IV daily, started 11/09; Synthroid; Flonase nasal spray; fentanyl patch; Lovenox. REVIEW OF SYSTEMS: A complete 10-point review of systems was performed and is negative except as mentioned in the HPI. PHYSICAL EXAM: VITAL SIGNS: Blood pressure 123/86. Heart rate 88; overnight, got up to low 100s. Respiratory rate 18, saturation 95% on 0.5 L, temperature 36.7. She has been afebrile throughout her entire hospital course. GENERAL: This is a mildly toxic-appearing woman with pallor, but able to speak in complete sentences. She had noticeable anasarca. HEENT: She had dry mucous membranes with crusting on the roof of her mouth. No clear ulcerations. No thrush. NECK: Supple. No lymphadenopathy. CARDIOVASCULAR: Regular rate. No murmur. CHEST: Patient had decreased breath sounds in the bases. No crackles. ABDOMEN: Firm. Diffuse discomfort to palpation. Query peritoneal sign, particularly left lower quadrant. She had a superficial wound VAC in place and a drain, right quadrant, which has had minimal output over the last 24 hours at 20 cc. Decreased bowel sounds in all 4 quadrants. EXTREMITIES: She had edema. She had right arm swelling in the side that a PICC line was in place. : No [place]. NEUROLOGICAL: She was alert and oriented x4. Moving all 4 extremities equally. SKIN: No rash. Notable for pallor. LABS: AST 47, ALT 58, up from 39 and 36 respectively; alkaline phosphatase 158 ; lipase 1,048. White count 16.5 today, yesterday 18.8; 78% neutrophils; 7% bands. Creatinine 0.8. Blood cultures, 11/08/2018, are negative. Peritoneal cultures as per HPI. IMAGING: As per HPI. ASSESSMENT AND PLAN: This is a 63-year-old woman who developed a cecal volvulus requiring right colon resection with negative pathology, who developed an anastomotic leak and resultant polymicrobial peritonitis, who has been slow to recover following washout on November 08, reflected in intermittent tachycardia and persistent leukocytosis as well as ongoing abdominal pain. CT from 2 days ago shows ongoing intraabdominal fluid. 1. Polymicrobial peritonitis with ongoing abdominal pain and leukocytosis: Discussed with Radiology may be difficult to access intraabdominal fluid, but will try ultrasound-guided aspirate with drain placement if feasible. Patient to have cell count and culture sent from this fluid. This was specifically discussed with Radiology and hospitalist. Zosyn is adequate coverage to cover bacterial isolates of Enterococcus faecalis, Escherichia coli and enterobacter. Fluconazole is likely adequate cover for Mariann albicans as we have no resistance at this institution, but would probably recommend a 400 mg dose, but in light of increasing LFTs, will hold off on this transition and give micafungin in the interim as we continue to sort out origin of failure to improve. 2. Right upper extremity swelling associated with peripherally inserted central catheter line, possible deep venous thrombosis, would rule out with ultrasound. 3. Elevated LFTs. Suspect this is multifactorial, could be ongoing infection. Doubt due to Zosyn or fluconazole, but cannot completely exclude this. Will continue to monitor serially. Time was 80 minutes, greater than 50% of time spent in counseling and education regarding current workup of persistent abdominal pain and leukocytosis, risks of antibiotic therapy, coordination of care with hospitalist and Radiology. Thank you for this consultation. Will continue to see the patient on a daily basis. /[id number]/MODL MTDD
--- NOTE | 2018-11-15 13:52 | PDHPUP ---
History & Physical Update H&P update statement: This history and physical update is based on an assessment of the patient which was completed after admission or registration (within 24 hours), but prior to the surgery/procedure. Plan for US guided paracentesis H&P update: H&P reviewed & patient examined, no change in patient's condition since H&P completed
--- NOTE | 2018-11-15 13:53 | PDRADPN ---
Radiology Procedure Note Date of Procedure: 11/15/18 Radiologist: Bo Valderrama Anesthesia: Local (Specify) Pre-op Diagnosis: Ascites Post-op Diagnosis: Ascites Indication: Concern for peritonitis Procedure: US guided fluid aspiration Finding(s): Nonloculated, nonpurulent bloody fluid in LUQ targeted. 325 mL removed and sent for analysis. Inf/Abcess present in the surg proc area at time of surgery?: No
--- NOTE | 2018-11-15 14:17 | ASMTCMCOM ---
CM Note CM Note Notes: Patient plan of care reviewed in am rounds. Probable pancreatitis after bowel surgery. ID consulted to help manage microbiology. TPN for nutrition. Wound vac in place. Will need extended stay to manage her medical needs. CM to follow for needs. Plan: Remains TBD Date Signed: 11/15/2018 02:16 PM Electronically Signed By:Sidra Zhang RN
--- NOTE | 2018-11-15 16:21 | SOAPPROG ---
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 Cx sent. Site is painful but she states that she has some relief from that - a little better today Plan: 11/03/18 09:06 11/08/18 09:49 11/08/18 09:53 11/11/18 09:32 11/12/18 09:14 11/13/18 10:20 11/14/18 14:17 11/15/18 16:20 Subjective: feels a little better, still having bowel function Objective: Vital Signs Temp Pulse Resp BP Pulse Ox 36.7 C 88 18 123/86 H 94 11/15/18 11:24 11/15/18 11:24 11/15/18 11:24 11/15/18 14:44 11/15/18 11:24 Microbiology 11/08/18 16:05 Gram Stain - Final Abdomen - Aspirate Anaerobic Culture - Final Enterococcus Faecalis Escherichia Coli Enterobacter Cloacae Mariann Albicans Laboratory Results 11/14/18 02:53 11/15/18 04:15 11/14/18 11/15/18 11/16/18 05:59 05:59 05:59 Intake Total 2145 1400 Output Total 1630 2100 Balance 515 -700 PT 15.5 SEC (12.0-15.0) H 11/14/18 02:53 INR 1.21 (0.83-1.16) H 11/14/18 02:53 ICD10 Worksheet Patient Problems: Problems Problem Status Onset Abdominal pain Acute Hyponatremia Acute Volvulus Acute Back pain Acute Diskitis Acute
[2018-11-15] MEDS: HYDROmorphONE/DILAUDID 2 MG/ML INJ IVP PRN ×3 (16:37→20:42)
[2018-11-15] MEDS: QUEtiapine FUMARATE 25 MG TAB PO SCH (20:53)
[2018-11-15] MEDS: MELATONIN 3 MG TAB PO SCH (20:54)
[2018-11-15] MEDS: TPN 1 EA BAG IV SCH (20:57)
[2018-11-15] MEDS: ENOXAPARIN 40 MG/0.4 ML SYR SC SCH (20:58)
[2018-11-16] MEDS: ACETAMINOPHEN 500 MG TAB PO SCH ×3 (00:09→21:09)
[2018-11-16] MEDS: hydrALAZINE 20 MG/ML VIAL IVP SCH ×4 (02:07→21:05)
[2018-11-16] MEDS: HYDROmorphONE/DILAUDID 2 MG/ML INJ IVP PRN ×9 (02:07→20:58)
[2018-11-16] MEDS: LEVOTHYROXINE 25 MCG TAB PO SCH (04:28)
[2018-11-16 04:53] LABS: PLATELET COUNT 639 10^3/uL (150-400)
[2018-11-16] MEDS: PIPERACILLIN/TAZO 3.375 GM/DEX 50 ML IV SCH ×4 (05:34→18:48)
[2018-11-16] MEDS: SENNOSIDES/DOCUSATE SODIUM TAB PO SCH ×2 (09:08→20:38)
[2018-11-16] MEDS: VENLAFAXINE XR 150 MG CAP PO SCH ×2 (09:09→21:08)
[2018-11-16] MEDS: PANTOPRAZOLE SODIUM 40 MG VIAL IVP SCH (09:09)
[2018-11-16] MEDS: FLUTICASONE NASAL 120 SPRAYS/16 GM MDI EACHNARE SCH (09:19)
--- NOTE | 2018-11-16 09:30 | PCMIDPN ---
Assessment/Plan: # Polymicrobial peritonitis s/p anastomotic leak following right colon resection 11/01/2018. Now s/p washout & ileocolonic resection, omental patch, 6 L peritoneal lavage 11/08/2018. Abdominal pain is somewhat slow to resolve and persistent leukocytosis but patient's mentation is much improved. She remains afebrile. Discussed potential reasons for slower improvement with patient and advocate Mikal includin) evolution of intra-abdominal abscess, 2) wrong spectrum of activity of antibiotics 3) problem outside intra-abdominal process. Also discussed that her improvement could still be within the realm of expectation. --repeat CT scan to assess for abscess --no diarrhea therefore workup for C diff not warranted at this point --blood cultures are pending to rule out PICC line infection --paracentesis was performed yesterday to evaluate if current antibiotics have adequate spectrum of activity --continue micafungin and zosyn for now # Leukocytosis: Likely due to intra-abdominal process # Mild R arm swelling : r/o DVT # elevated LFT: Recheck today Microbiology 11/15/18 blood cx (2) pending 11/15/18 Peritoneal fluid: 4+ PMNs, no org; cx: pending; WBC = 3800 (98%N) 11/08/18 16:05 Abdomen - Aspirate Anaerobic Culture - Final Enterococcus Faecalis Escherichia Coli Enterobacter Cloacae Mariann Albicans 11/08/18 09:10 Blood Cx (2) Neg Meds Zosyn 3.375gm IV q6h, #8 micafungin 100mg IV daily #2 Subjective: 1 BM yesterday; 1 episode of tachycardia Objective: Vital Signs Temp Pulse Resp BP Pulse Ox 36.3 C 90 20 142/91 H 98 11/16/18 07:46 11/16/18 07:46 11/16/18 07:46 11/16/18 09:09 11/16/18 07:46 Microbiology 11/15/18 09:52 Gram Stain - Final Abdomen - Aspirate 11/08/18 16:05 Gram Stain - Final Abdomen - Aspirate Anaerobic Culture - Final Enterococcus Faecalis Escherichia Coli Enterobacter Cloacae Mariann Albicans Laboratory Results 11/16/18 04:00 11/16/18 04:00 11/15/18 11/16/18 11/17/18 05:59 05:59 05:59 Intake Total 1400 1864 Output Total 2100 1150 Balance -700 714 - Physical Exam General Appearance: alert, no apparent distress, thin EENT: dry mucous membranes Respiratory: lungs clear, No accessory muscle use Cardiac/Chest: tachycardia, No systolic murmur Extremities: swelling (Right arm associated with PICC line, mild), No pedal edema Abdomen: soft, peritoneal signs, tender, other (Decreased bowel sounds; good granulation in majority of midline incision, proximal area with a little bit of dehiscence, no associated erythema), No rigid Skin: pallor, No rash Neuro/Psych: no motor/sensory deficits, alert, normal mood/affect, oriented x 3 - Line/s RUE PICC Lines: No drainage, No erythema - Time Spent With Patient Time Spent with Patient: greater than 35 minutes Time Spent with Patient: Greater than 35 minutes spent on this patients care, greater than 50% of time spent counseling, educating, and coordinating care regarding the above mentioned plan. ICD10 Worksheet Patient Problems: Problems Problem Status Onset Abdominal pain Acute Hyponatremia Acute Volvulus Acute Back pain Acute Diskitis Acute
[2018-11-16] MEDS: MICAFUNGIN NA 100 MG in NS 100 ML IV SCH (09:32)
--- NOTE | 2018-11-16 10:52 | WOCRNPDOC ---
WOCRN Advanced Assessment Note - Skin Integrity Problem, Advanced Assess Medial Abdomen Surgical Wound/Incision Dressing Type: Black Vac Foam (x1), Wound Vac Dressing Description: Clean/Dry, Intact Exudate Amount: Scant Exudate Characteristic(s): Serosanguinous Integumentary Issue Intervention: Dressing Changed Renee Wound Tissue: Painful/Tender Wound Bed Constitution: Granulation Tissue (80%), Smooth Tissue (20%), Tunneling (1-2 oclock 1 cm ) Wound Edges: Attached Site Measurement - Head-to-Toe Length X Width X Depth (cm): 9x2.1x1 Skin Integrity Problem Comment: Wound generally clean however dehiscing at superior end. Discrete pocket approximately 1 cm long at 1 oclock. Fascia feels intact. Dr. Britton and Mahsa aware. 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 Cleaned with wound with ns. 5 cm of 1/4 inch plain packing moistened with ns and placed in pocket at 1 oclock. Silvasorb applied to remainder of wound and covered by mepilex Ag+ surgical dressing. Wang RN's in room for care. Wound vac d/c'd as wound is quite shallow and would like MD to be able to assess area.
[2018-11-16] MEDS: ONDANSETRON 4 MG/2 ML VIAL IVP PRN ×3 (11:37→21:02)
[2018-11-16] MEDS ORDERED: IOHEXOL 350mgI/ML (OMNIPAQUE) 150 ML BTL IV ONE (11:42)
[2018-11-16] MEDS ORDERED: BIOTENE DRY MOUTH ORAL RINSE 237 ML BTL MM PRN (11:53)
--- NOTE | 2018-11-16 15:07 | ASMTCMCOM ---
CM Note CM Note Notes: Plan of care reviewed in am rounds. Patient had CT results pending. Electrolytes adjusted per pharmacy for TPN. Wound care following. CM to follow for needs. Plan: TBD Date Signed: 11/16/2018 03:06 PM Electronically Signed By:Sidra Zhang RN
--- NOTE | 2018-11-16 17:57 | SOAPPROG ---
SOAP Progress Note Assessment/Plan: Assessment/plan: 63 y/o F s/p right hemicolectomy for cecal volvulus. s/p laparotomy c ileocolonic resection and peritoneal lavage for anastomotic leak Abx for contamination Tolerating clears and having bowel function. Neuro: dilaudid pushes for pain. Wound: wound appears dehisced in the superior most margin. Old blood/hematoma drainage present. Fascia appears intact. VTE ppx: lovenox Persistent abdominal pain. S/p fluid collection drainage yesterday with serous fluid. Cultures no growth as of yet. Repeat CT today reveals decrease in phlegmon, persistent ascites, but no abscess. S: C/o severe pain. Constant since surgery. Dilaudid pushes helping. O: Alert Afebrile WBC count up from 16 to 18 RRR ctab, no increased wob Abdomen: soft, moderately distended, appropriately ttp, normoactive BS, JANEEN drain with serosang drainage 11/16/18 17:50 Objective: Vital Signs Temp Pulse Resp BP Pulse Ox 36.6 C 85 18 136/91 H 98 11/16/18 12:00 11/16/18 12:00 11/16/18 12:00 11/16/18 12:00 11/16/18 12:00 Microbiology 11/15/18 09:52 Gram Stain - Final Abdomen - Aspirate 11/08/18 16:05 Gram Stain - Final Abdomen - Aspirate Anaerobic Culture - Final Enterococcus Faecalis Escherichia Coli Enterobacter Cloacae Mariann Albicans Laboratory Results 11/16/18 04:00 11/16/18 04:00 11/15/18 11/16/18 11/17/18 05:59 05:59 05:59 Intake Total 1400 1864 Output Total 2100 1150 Balance -700 714 PT 15.5 SEC (12.0-15.0) H 11/14/18 02:53 INR 1.21 (0.83-1.16) H 11/14/18 02:53 ICD10 Worksheet Patient Problems: Problems Problem Status Onset Abdominal pain Acute Hyponatremia Acute Volvulus Acute Back pain Acute Diskitis Acute
--- NOTE | 2018-11-16 18:26 | HOSPPROG ---
Hospitalist Progress Note Assessment/Plan: * Acute volvulus s/p resection * Anastomotic leak with fecal peritonitis s/p repeat OR for resection * Sepsis due to peritonitis - polymicrobial -IV Zoysn + IV micafungin * Phlegmon/hematoma/loculated ascites -s/p fluid drainage from phlegmon - culture pending * Elevated lipase -suspect pancreatic inflammation due to adjacent phlegmon * Open wound with wound vac * ABL anemia due to intraabdominal hematoma -H/H stable - follow * Continuous narcotic dependency -acute pain management - IV dilaudid push * Acute urinary retention -grier place with > 1000cc retained * Nutrition -TPN * Hyponatremia due to SIADH -increase sodium in TPN -this is a chronic issue for her previously attributed to her psych meds * HTN -IV hydralazine while NPO Subjective: No new complaints. Objective: Vital Signs Temp Pulse Resp BP Pulse Ox 36.6 C 85 18 136/91 H 98 11/16/18 12:00 11/16/18 12:00 11/16/18 12:00 11/16/18 12:00 11/16/18 12:00 Microbiology 11/15/18 09:52 Gram Stain - Final Abdomen - Aspirate 11/08/18 16:05 Gram Stain - Final Abdomen - Aspirate Anaerobic Culture - Final Enterococcus Faecalis Escherichia Coli Enterobacter Cloacae Mariann Albicans Laboratory Results 11/16/18 04:00 11/16/18 04:00 11/15/18 11/16/18 11/17/18 05:59 05:59 05:59 Intake Total 1400 1864 Output Total 2100 1150 Balance -700 714 PT 15.5 SEC (12.0-15.0) H 11/14/18 02:53 INR 1.21 (0.83-1.16) H 11/14/18 02:53 case d/w Dr. Britton regarding concerning abd exam today abd ct - phlegmon and hematoma are stable - Physical Exam Constitutional: no apparent distress, appears nourished, not in pain Cardiovascular: regular rate and rhythym, no murmur, rub, or gallop Respiratory: no respiratory distress, no rales or rhonchi, clear to auscultation Gastrointestinal: tenderness, guarding, rebound, distension, No ascites Skin: no rashes or abrasions, no fluctuance, no induration Neurologic: AAOx3, sensation intact bilaterally Psychiatric: interacting appropriately, not anxious, not encephalopathic, thought process linear ICD10 Worksheet Patient Problems: Problems Problem Status Onset Abdominal pain Acute Hyponatremia Acute Volvulus Acute Back pain Acute Diskitis Acute
[2018-11-16] MEDS: LORazepam 2 MG/ML INJ IVP PRN (18:49)
[2018-11-16] MEDS: ENOXAPARIN 40 MG/0.4 ML SYR SC SCH (20:58)
[2018-11-16] MEDS: MBX SOLN 30 ML BOTTLE PO PRN (20:59)
[2018-11-16] MEDS: QUEtiapine FUMARATE 25 MG TAB PO SCH (21:10)
[2018-11-16] MEDS: TPN 1 EA BAG IV SCH (21:11)
[2018-11-16] MEDS: MELATONIN 3 MG TAB PO SCH (21:11)
--- NOTE | 2018-11-16 23:13 | SOAPPROG ---
[facility] Progress Note Assessment/Plan: Assessment: PATIENT STILL IN A LOT OF PAIN BUT AFEBRILE/HEMATOCRIT STABLE/WBC ELEVATED [address] TODAY REVEALS A STABLE SUBFASCIAL HEMATOMA AND LARGE PLEURAL EFFUSIONS ABDOMEN SOFT SLIGHTLY DISTENDED WITH SOME BOWEL SOUNDS. UPPER MIDLINE INCISION IS OPEN WITH A HEMATOMA DRAINAGE AND A SMALL AREA OF FASCIAL SEPARATION BUT NO SIGNIFICANT INTRA-ABDOMINAL COMMUNICATION OR DRAINAGE CHEST CLEAR COR REGULAR RHYTHM NO NEED FOR SURGERY TONIGHT BUT MAY NEED EVACUATION OF THAT SUBFASCIAL HEMATOMA OR AT LEAST IRRIGATION AND DRAINAGE OF THAT AREA. I WOULD BE CONCERNED ABOUT HER LARGE PLEURAL EFFUSIONS IN THE FACE OF A RISING WHITE COUNT AND SOME FEVER PREVIOUS PARACENTESIS RESULTS ARE PENDING Plan: CONSIDER THORACENTESIS IN THE A.M. 11/16/18 23:10 Objective: Vital Signs Temp Pulse Resp BP Pulse Ox 36.3 C 90 16 152/105 H 94 11/16/18 20:00 11/16/18 20:00 11/16/18 20:00 11/16/18 21:05 11/16/18 20:00 Microbiology 11/15/18 09:52 Gram Stain - Final Abdomen - Aspirate Laboratory Results 11/16/18 04:00 11/16/18 04:00 11/15/18 11/16/18 11/17/18 05:59 05:59 05:59 Intake Total 1400 1864 Output Total 2100 1150 Balance -700 714 PT 15.5 SEC (12.0-15.0) H 11/14/18 02:53 INR 1.21 (0.83-1.16) H 11/14/18 02:53 ICD10 Worksheet Patient Problems: Problems Problem Status Onset Abdominal pain Acute Hyponatremia Acute Volvulus Acute Back pain Acute Diskitis Acute
[2018-11-17] MEDS: PIPERACILLIN/TAZO 3.375 GM/DEX 50 ML IV SCH ×5 (00:32→23:19)
[2018-11-17] MEDS: hydrALAZINE 20 MG/ML VIAL IVP SCH ×3 (00:33→15:56)
[2018-11-17] MEDS: HYDROmorphONE/DILAUDID 2 MG/ML INJ IVP PRN ×9 (00:33→23:15)
[2018-11-17] MEDS: ACETAMINOPHEN 500 MG TAB PO SCH (01:39)
[2018-11-17] MEDS: LEVOTHYROXINE 25 MCG TAB PO SCH (05:02)
[2018-11-17] MEDS: ONDANSETRON 4 MG/2 ML VIAL IVP PRN ×4 (05:02→21:01)
[2018-11-17] MEDS: LORazepam 2 MG/ML INJ IVP PRN ×3 (05:32→17:22)
[2018-11-17 06:05] LABS: PLATELET COUNT 610 10^3/uL (150-400)
[2018-11-17] MEDS ORDERED: ACETAMINOPHEN 500 MG TAB PO PRN (08:17)
--- NOTE | 2018-11-17 08:54 | PCMIDPN ---
Assessment/Plan: # Polymicrobial peritonitis s/p anastomotic leak following right colon resection 11/01/2018. Now s/p washout & ileocolonic resection, omental patch . Abdominal pain is somewhat slow to resolve and persistent leukocytosis but abdominal pain and WBC a bit better today. CT yesterday shows hematoma, ascites, improving phlegmon at head of pancreas, B pleural effusions --ok to tap pleural effusions although doubt cause --agree with surgical assessment that hematoma may need to be evacuated if abdominal pain and/or elevated wbc persists # Leukocytosis: Likely due to intra-abdominal process, slight improvement today # Mild R arm swelling : no DVT # elevated LFT: overall stable yesterday Microbiology 11/15/18 blood cx (2) NGTD 11/15/18 Peritoneal fluid: 4+ PMNs, no org; cx: pending; WBC = 3800 (98%N): Cx NGTD 11/08/18 16:05 Abdomen - Aspirate Anaerobic Culture - Final Enterococcus Faecalis Escherichia Coli Enterobacter Cloacae Amriann Albicans 11/08/18 09:10 Blood Cx (2) Neg Meds Zosyn 3.375gm IV q6h, #9 micafungin 100mg IV daily #3 Subjective: patient feeling a little better wants to drink water overall more cheerful today Grier placed yesterday for urinary retention Objective: Vital Signs Temp Pulse Resp BP Pulse Ox 36.8 C 96 20 128/84 H 96 11/17/18 08:00 11/17/18 08:00 11/17/18 08:00 11/17/18 08:00 11/17/18 08:00 Microbiology 11/15/18 09:52 Gram Stain - Final Abdomen - Aspirate Laboratory Results 11/17/18 04:49 11/17/18 04:50 11/16/18 11/17/18 11/18/18 05:59 05:59 05:59 Intake Total 1864 910 Output Total 1150 1100 Balance 714 -190 - Physical Exam General Appearance: alert, thin EENT: pale conjunctiva, dry mucous membranes, No thrush Respiratory: other (Decreased breath sounds in the bases), No accessory muscle use Cardiac/Chest: regular rate, rhythm, No systolic murmur Extremities: No pedal edema Abdomen: soft, other (Mild tenderness diffusely; wound VAC is off) Pelvic Exam: greir Skin: pallor, No rash Neuro/Psych: alert, normal mood/affect, oriented x 3 - Line/s RUE PICC Lines: No drainage, No erythema - Time Spent With Patient Time Spent with Patient: greater than 35 minutes (Care coordinated with surgical team) Time Spent with Patient: Greater than 35 minutes spent on this patients care, greater than 50% of time spent counseling, educating, and coordinating care regarding the above mentioned plan. ICD10 Worksheet Patient Problems: Problems Problem Status Onset Abdominal pain Acute Hyponatremia Acute Volvulus Acute Back pain Acute Diskitis Acute
[2018-11-17] MEDS: FLUTICASONE NASAL 120 SPRAYS/16 GM MDI EACHNARE SCH (09:35)
[2018-11-17] MEDS: SENNOSIDES/DOCUSATE SODIUM TAB PO SCH ×2 (09:35→21:01)
[2018-11-17] MEDS: VENLAFAXINE XR 150 MG CAP PO SCH ×2 (09:35→21:01)
[2018-11-17] MEDS: MICAFUNGIN NA 100 MG in NS 100 ML IV SCH (09:35)
--- NOTE | 2018-11-17 12:13 | ECHO ---
[email or web address] [address] [address] Main: [phone] Fax: Transthoracic Echocardiogram Name: FLORINA COMER MR#: [id number] Study Date: 11/17/2018 Study Time: 11:23 AM Date of : 1955 Age: 63 year(s) Height: 162.6 cm (64 in.) Weight: 58.51 kg (129 lb.) BSA: 1.62 m2 Gender: Female Examination: Echo Indication: pulmonary edema Image Quality: Adequate Contrast: Requested by: No Almeida BP: 128 mmHg/84 mmHg Heart Rate: Rhythm: Indication: pulmonary edema Procedure Staff Retail Assistant Manager: Sobia Gutierrez RDCS Reading Physician: Lolly Jose MD Requesting Provider: Conclusions: Normal size left ventricle. Mild concentric LV hypertrophy. Normal global systolic LV function. The ejection fraction is visually estimated to be 55 %. Unable to assess diastolic dysfunction. Normal size right ventricle. Normal RV function. The left atrium is mildly dilated. Mild mitral valve regurgitation is present. Mild aortic valve regurgitation is present. Mild tricuspid regurgitation is present. The pulmonary artery pressure is mildly increased. Right ventricular systolic pressure measures 42mmHg. Small pericardial effusion (Circumferential). There is a pleural effusion present. Compared with 04/2017 small pericardial effusion and pleural effusion now present Measurements: Chambers Valvular Assessment AV/MV Valvular Assessment TV/PV Normal Normal Normal Name Value Range Name Value Range Name Value Range Ao Hansa (2D): 2.9 cm (1.4 cm-2.6 AV Vmax: 1.96 m/s (1 m/s-1.7 TR Vmax: 3.05 mm/s ( - ) cm) m/s) TR PGmax: 37 mmHg ( - ) IVSd (2D): 1.3 cm (0.6 cm-1.1 AV maxP mmHg ( - ) syst. PAP: 42 mmHg ( - ) cm) AV meanP mmHg ( - ) PV Vmax: 1.15 m/s (0.6 m/s-0.9 LVDd (2D): 4.5 cm (3.9 cm-5.3 BOO (VTI): 1.8 cm ( - ) m/s) cm) MV E Vmax: 0.96 m/s ( - ) PV PGmax: 5 mmHg ( - ) LVDs (2D): 3.0 cm (2.1 cm-4 MV A Vmax: 1.21 m/s ( - ) cm) MV E/A: 0.79 ( - ) LVPWd (2D): 1.2 cm ( - ) MV PHT: 0.051 s ( - ) Patient: FLORINA COMER Study Date: 11/17/2018 Page 1 of 2 11:23 AM LVOTd 1.9 cm 1.9 cm mm MVA (PHT): 4.3 s ( - ) Visual EF: 55 % RVDd(2D): 2.9 cm (1.9 cm-3.8 cmmm) Continued Measurements: Chambers Valvular Assessment AV/MV Valvular Assessment TV/PV Name Value Name Value Name Value LADs: 3.3 cm MV DecTime: 173 m/s CVP (est.): 5 mmHg LADs Lon.6 cm LA Area: 20.1 cm2 LA Volume: 62 ml LA Volume Index: 38.3 ml/m2 RA Area: 14.4 cm2 Additional Vessels Name Value Ao Ascendin.4 cm Findings: Left Ventricle: Normal size left ventricle. Mild concentric LV hypertrophy. Normal global systolic LV function. The ejection fraction is visually estimated to be 55 %. Unable to assess diastolic dysfunction. Right Ventricle: Normal size right ventricle. Normal RV function. Left Atrium: The left atrium is mildly dilated. Right Atrium: The right atrium is normal in size. Mitral Valve: The mitral valve is normal in appearance and function. Mild mitral valve regurgitation is present. No mitral stenosis is present. Aortic Valve: The aortic valve is tri-leaflet. Minimal aortic cusp calcification is noted. Mild aortic valve regurgitation is present. No aortic valve stenosis is present. Tricuspid Valve: The tricuspid valve is normal in appearance and function. Mild tricuspid regurgitation is present. The pulmonary artery pressure is mildly increased. Right ventricular systolic pressure measures 42mmHg. Pulmonic Valve: The pulmonic valve is normal in appearance and function. Trivial pulmonic valve regurgitation. Aorta: The aorta is normal. Normal size aortic root measuring 2.9 cm. Normal size ascending aorta measuring 3.4 cm. Pericardium: Small pericardial effusion (Circumferential). There is a pleural effusion present. (No Signature Object) Patient: FLORINA COMER Study Date: 11/17/2018 Page 2 of 2 11:23 AM [id number]
[2018-11-17] MEDS ORDERED: HYDROmorphONE/DILAUDID 1 MG/ML INJ IVP ONE (13:09)
[2018-11-17] MEDS ORDERED: LIDOCAINE 1% 300 MG/30 ML SDV ONE (14:16)
--- NOTE | 2018-11-17 14:26 | WOCRNPDOC ---
ARABELLA Advanced Assessment Note - Skin Integrity Problem, Advanced Assess Medial Abdomen Surgical Wound/Incision Dressing Type: Gauze Dressing Description: Clean/Dry, Intact Exudate Amount: Scant Exudate Characteristic(s): Serosanguinous Integumentary Issue Intervention: Dressing Changed Skin Integrity Problem Comment: Superior 1/4 of wound has dehisced with a 1.5x1.5 [address] opening. [address] Dr[address] Bragg with bedside evacuation and flushing of hematoma within dehisced cavity. After the procedure wound was covered with ABD and secured with medipore tape. Report given to ALBERTO Jackson. Patient's SO Mikal was at the bedside.
--- NOTE | 2018-11-17 14:35 | SOAPPROG ---
SOAP Progress Note Assessment/Plan: Assessment: 63yo F s/p ex-lap, RHC for cecal volvulus s/p takeback for leak, re-anastomosis - doing well mentally, pain seems a little better was well - superior portion of fascia has dehisced, no active infection apparent - bedside washout performed with sterile technique, got some clotted blood out. Sutured in a 1/4 Inch David - thoracentesis today Plan: 11/03/18 09:06 11/08/18 09:49 11/08/18 09:53 11/11/18 09:32 11/12/18 09:14 11/13/18 10:20 11/14/18 14:17 11/15/18 16:20 11/17/18 14:33 Subjective: feeling better today Objective: Vital Signs Temp Pulse Resp BP Pulse Ox 36.8 C 98 18 120/83 H 98 11/17/18 11:43 11/17/18 11:43 11/17/18 11:43 11/17/18 11:43 11/17/18 11:43 Microbiology 11/15/18 09:52 Gram Stain - Final Abdomen - Aspirate Laboratory Results 11/17/18 04:49 11/17/18 04:50 11/16/18 11/17/18 11/18/18 05:59 05:59 05:59 Intake Total 1864 910 Output Total 1150 1100 Balance 714 -190 PT 15.5 SEC (12.0-15.0) H 11/14/18 02:53 INR 1.21 (0.83-1.16) H 11/14/18 02:53 ICD10 Worksheet Patient Problems: Problems Problem Status Onset Abdominal pain Acute Hyponatremia Acute Volvulus Acute Back pain Acute Diskitis Acute
[2018-11-17] MEDS ORDERED: hydrALAZINE 20 MG/ML VIAL IVP PRN (15:36)
--- NOTE | 2018-11-17 15:41 | HOSPPROG ---
Hospitalist Progress Note Assessment/Plan: * Acute volvulus s/p resection * Anastomotic leak with fecal peritonitis s/p repeat OR for resection * Sepsis due to peritonitis - polymicrobial -IV Zoysn + IV micafungin * Phlegmon/loculated ascites -s/p fluid drainage from phlegmon - culture pending * Intra-abdominal hematoma s/p beside evacuation/drain * Elevated lipase -suspect pancreatic inflammation due to adjacent phlegmon * Wound dehiscence - wound vac * ABL anemia due to intraabdominal hematoma -H/H stable - follow * Continuous narcotic dependency -acute pain management - IV Dilaudid push * Acute urinary retention -grier place with > 1000cc retained * Metabolic encephalopathy -very confused intermittently -now improved * Nutrition -TPN * Hyponatremia due to SIADH -increase sodium in TPN -this is a chronic issue for her previously attributed to her psych meds * HTN -IV hydralazine while NPO -restart home lisinopril * Pleural effusions -thoracentesis today per surgery -pulmonary edema has improved, ECHO okay - suspect acute diastolic CHF Subjective: Abd pain better, less confused, still needing frequent IV dilaudid, very weak, now 2 person assist to mobilize Objective: Vital Signs Temp Pulse Resp BP Pulse Ox 36.8 C 98 18 120/83 H 98 11/17/18 11:43 11/17/18 11:43 11/17/18 11:43 11/17/18 11:43 11/17/18 11:43 Microbiology 11/15/18 09:52 Gram Stain - Final Abdomen - Aspirate Laboratory Results 11/17/18 04:49 11/17/18 04:50 11/16/18 11/17/18 11/18/18 05:59 05:59 05:59 Intake Total 1864 910 Output Total 1150 1100 Balance 714 -190 PT 15.5 SEC (12.0-15.0) H 11/14/18 02:53 INR 1.21 (0.83-1.16) H 11/14/18 02:53 - Physical Exam Constitutional: no apparent distress, appears nourished, not in pain Cardiovascular: regular rate and rhythym, no murmur, rub, or gallop Respiratory: no respiratory distress, no rales or rhonchi, clear to auscultation Gastrointestinal: distension, No normoactive bowel sounds, No tenderness, No guarding, No rebound Skin: no rashes or abrasions, no fluctuance, no induration Neurologic: AAOx3, sensation intact bilaterally Psychiatric: interacting appropriately, not anxious, not encephalopathic, thought process linear ICD10 Worksheet Patient Problems: Problems Problem Status Onset Abdominal pain Acute Hyponatremia Acute Volvulus Acute Back pain Acute Diskitis Acute
[2018-11-17] MEDS: ENOXAPARIN 40 MG/0.4 ML SYR SC SCH (20:55)
[2018-11-17] MEDS: QUEtiapine FUMARATE 25 MG TAB PO SCH (21:01)
[2018-11-17] MEDS: MELATONIN 3 MG TAB PO SCH (21:01)
[2018-11-17] MEDS: TPN 1 EA BAG IV SCH (22:15)
[2018-11-17] MEDS ORDERED: CALCIUM CARBONATE 500 MG CHEWABLE TAB PO PRN (23:40)
[2018-11-17] MEDS ORDERED: ALBUTEROL 3 ML DEYVIAL IH PRN (23:41)
[2018-11-18] MEDS: LORazepam 2 MG/ML INJ IVP PRN ×3 (01:52→10:40)
[2018-11-18] MEDS: HYDROmorphONE/DILAUDID 2 MG/ML INJ IVP PRN ×7 (04:02→20:28)
[2018-11-18 04:31] LABS: PLATELET COUNT 594 10^3/uL (150-400)
[2018-11-18] MEDS: PIPERACILLIN/TAZO 3.375 GM/DEX 50 ML IV SCH ×3 (05:37→18:07)
[2018-11-18] MEDS: LEVOTHYROXINE 25 MCG TAB PO SCH (05:37)
--- NOTE | 2018-11-18 08:19 | PCMIDPN ---
Assessment/Plan: # Polymicrobial peritonitis s/p anastomotic leak following right colon resection 11/01/2018. Now s/p washout & ileocolonic resection, omental patch . Abdominal pain is a little better today. WBC stable. Overall impression is very gradual clinical improvement. Peritoneal fluid unrevealing for another organisms. Pleural fluid transudate --continue micafungin, Zosyn --case discussed with Dr. Bragg --consider removing grier --patient wanting more food than liquids, advance per surgery --continue to monitor closely. # Leukocytosis: Likely due to intra-abdominal process, stable today # elevated LFT: add on to blood in lab Microbiology 11/17/18 Pleural fluid: no org; Cx pending 11/15/18 blood cx (2) NGTD 11/15/18 Peritoneal fluid: 4+ PMNs, no org; cx: pending; WBC = 3800 (98%N): Cx NGTD 11/08/18 16:05 Abdomen - Aspirate Anaerobic Culture - Final Enterococcus Faecalis Escherichia Coli Enterobacter Cloacae Mariann Albicans 11/08/18 09:10 Blood Cx (2) Neg Meds (Abx #7 post washout) Zosyn 3.375gm IV q6h, #10 micafungin 100mg IV daily #4 Subjective: Patient states she feels very sleepy due to inability to sleep last She is worried about a friend who recently lost her mother and her inability to support this friend due to her ongoing illness here in the hospital Slightly less abdominal pain, still having Flatus Objective: Vital Signs Temp Pulse Resp BP Pulse Ox 36.9 C 95 18 155/102 H 96 11/18/18 08:00 11/18/18 08:00 11/18/18 08:00 11/18/18 08:00 11/18/18 08:00 Microbiology 11/17/18 15:15 Gram Stain - Final Pleural Fluid - Aspirate 11/15/18 09:52 Gram Stain - Final Abdomen - Aspirate Laboratory Results 11/18/18 04:20 11/18/18 04:20 11/17/18 11/18/18 11/19/18 05:59 05:59 05:59 Intake Total 910 1593 Output Total 1100 2300 Balance -190 -707 - Physical Exam General Appearance: alert, no apparent distress EENT: pale conjunctiva, other (O/p much more moist, no ulcers), No scleral icterus Respiratory: other (decreased bs in bases), No accessory muscle use, No crackles Cardiac/Chest: tachycardia Extremities: No pedal edema Abdomen: other (Bowel sounds present, less tenderness to palpation more prominent on the left compared to the right, continued mild distention) Pelvic Exam: grier Skin: pallor, No diaphoresis, No jaundice, No rash Neuro/Psych: alert, oriented x 3, depressed affect - Line/s RUE PICC Lines: No drainage, No erythema - Time Spent With Patient Time Spent with Patient: greater than 35 minutes (Reviewed plan of care with patient's friend Mikal) Time Spent with Patient: Greater than 35 minutes spent on this patients care, greater than 50% of time spent counseling, educating, and coordinating care regarding the above mentioned plan. ICD10 Worksheet Patient Problems: Problems Problem Status Onset Abdominal pain Acute Hyponatremia Acute Volvulus Acute Back pain Acute Diskitis Acute
--- NOTE | 2018-11-18 08:50 | HOSPPROG ---
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 Had anastomotic leak with fecal peritonitis, s/p omental patch. Had fluid collection drained by IR, then bedside washout of clot. Also had thoracentesis with transudative fluid. # cecal volvulus s/p resection # anastomotic leak with fecal peritonitis s/p repeat OR for resection, omental patch # polymicrobial sepsis d/t peritonitis - cont zosyn, micafungin # phlegmon/loculated ascites -s/p fluid drainage from phlegmon - NGTD # intra-abdominal hematoma s/p beside evacuation/drain # wound dehiscence - wound vac (currently off) # ABLA, joana-operative; has not required a transfusion # chronic pain on continuous narcotics - cont dilaudid IV # acute urinary retention -grier place with > 1000cc retained; try to dc at some point # metabolic encephalopathy -very confused intermittently -now improved # FEN - TPN, Na low (will increase in TPN); on clears # acute on chronic hypoNa - stable currently; 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 # htn - cont home lisino # pleural effusions, likely transudative but no LDH drawn - likely diastolic dysfunction # suspected acute diastolic dysfunction - continue to follow her volume status Subjective: c/o signiifcant abd pain; +flatus, no BM Objective: Vital Signs Temp Pulse Resp BP Pulse Ox 36.9 C 95 18 155/102 H 96 11/18/18 08:00 11/18/18 08:00 11/18/18 08:00 11/18/18 08:00 11/18/18 08:00 Microbiology 11/17/18 15:15 Gram Stain - Final Pleural Fluid - Aspirate 11/15/18 09:52 Gram Stain - Final Abdomen - Aspirate Laboratory Results 11/18/18 04:20 11/18/18 04:20 11/17/18 11/18/18 11/19/18 05:59 05:59 05:59 Intake Total 910 1593 Output Total 1100 2300 Balance -190 -707 PT 15.5 SEC (12.0-15.0) H 11/14/18 02:53 INR 1.21 (0.83-1.16) H 11/14/18 02:[address] reviewed CXRs reviewed - Physical Exam Constitutional: no apparent distress, appears nourished Ears, Nose, Mouth, Throat: hearing normal Cardiovascular: regular rate and rhythym, systolic murmur, No irregularly irregular, No diastolic murmur Respiratory: no respiratory distress, no rales or rhonchi, clear to auscultation Gastrointestinal: normoactive bowel sounds, distension, other (soft, very TTP diffusely; gauze with mild blood tinges) ICD10 Worksheet Patient Problems: Problems Problem Status Onset Back pain Acute Diskitis Acute Hyponatremia Acute Abdominal pain Acute Volvulus Acute
[2018-11-18] MEDS: LISINOPRIL 10 MG TAB PO SCH (10:39)
[2018-11-18] MEDS: MICAFUNGIN NA 100 MG in NS 100 ML IV SCH (10:40)
[2018-11-18] MEDS: VENLAFAXINE XR 150 MG CAP PO SCH ×2 (10:41→20:33)
[2018-11-18] MEDS: SENNOSIDES/DOCUSATE SODIUM TAB PO SCH ×2 (10:42→20:33)
[2018-11-18] MEDS: FLUTICASONE NASAL 120 SPRAYS/16 GM MDI EACHNARE SCH ×2 (12:28→12:35)
--- NOTE | 2018-11-18 14:32 | ASMTCMCOM ---
CM Note CM Note Notes: Pt experiencing slightly less abdominal pain, still having flatus. Continues on Zosyn abd Micafungin IV. CM will follow for needs. D/C Plan: Anticipate independent. Date Signed: 11/18/2018 02:32 PM Electronically Signed By:Autumn Phillips
--- NOTE | 2018-11-18 17:02 | SOAPPROG ---
SOAP Progress Note Assessment/Plan: Assessment: 63yo F s/p ex-lap, RHC for cecal volvulus s/p takeback for leak, re-anastomosis - continues to make small daily improvements, no fevers. - abdomen still distended, maybe a little better. Open superior wound is draining, slowly. - Thora successful, no orgs on g stain - has good bowel sounds, tolerating diet. Advance to fulls - slow progress, mentally doing well. No current plans to change what we are doing at this time Plan: 11/03/18 09:06 11/08/18 09:49 11/08/18 09:53 11/11/18 09:32 11/12/18 09:14 11/13/18 10:20 11/14/18 14:17 11/15/18 16:20 11/17/18 14:33 11/18/18 17:00 Subjective: feels better today, wants to eat Objective: Vital Signs Temp Pulse Resp BP Pulse Ox 37.2 C 101 H 20 145/98 H 96 11/18/18 11:58 11/18/18 11:58 11/18/18 11:58 11/18/18 11:58 11/18/18 11:58 Microbiology 11/15/18 09:52 Gram Stain - Final Abdomen - Aspirate 11/17/18 15:15 Gram Stain - Final Pleural Fluid - Aspirate Laboratory Results 11/18/18 04:20 11/18/18 04:20 11/17/18 11/18/18 11/19/18 05:59 05:59 05:59 Intake Total 910 1593 Output Total 1100 2300 1100 Balance -190 -707 -1100 PT 15.5 SEC (12.0-15.0) H 11/14/18 02:53 INR 1.21 (0.83-1.16) H 11/14/18 02:53 ICD10 Worksheet Patient Problems: Problems Problem Status Onset Abdominal pain Acute Hyponatremia Acute Volvulus Acute Back pain Acute Diskitis Acute
[2018-11-18] MEDS: QUEtiapine FUMARATE 25 MG TAB PO SCH (20:33)
[2018-11-18] MEDS: MELATONIN 3 MG TAB PO SCH (20:33)
[2018-11-18] MEDS: ENOXAPARIN 40 MG/0.4 ML SYR SC SCH (20:34)
[2018-11-18] MEDS: TPN 1 EA BAG IV SCH (22:00)
[2018-11-18] MEDS: HYDROmorphONE/DILAUDID 1 MG/ML INJ IVP PRN (22:28)
[2018-11-19] MEDS: PIPERACILLIN/TAZO 3.375 GM/DEX 50 ML IV SCH ×4 (00:20→17:21)
[2018-11-19] MEDS: HYDROmorphONE/DILAUDID 1 MG/ML INJ IVP PRN ×8 (00:29→21:45)
[2018-11-19] MEDS: diphenhydrAMINE 25 MG CAP PO PRN ×2 (02:19→08:06)
[2018-11-19] MEDS: LORazepam 2 MG/ML INJ IVP PRN (02:19)
[2018-11-19 05:51] LABS: PLATELET COUNT 631 10^3/uL (150-400)
[2018-11-19] MEDS: MICAFUNGIN NA 100 MG in NS 100 ML IV SCH (08:01)
[2018-11-19] MEDS: LEVOTHYROXINE 25 MCG TAB PO SCH (08:06)
[2018-11-19] MEDS: LISINOPRIL 10 MG TAB PO SCH (08:06)
[2018-11-19] MEDS: VENLAFAXINE XR 150 MG CAP PO SCH ×2 (08:07→21:50)
[2018-11-19] MEDS: SENNOSIDES/DOCUSATE SODIUM TAB PO SCH ×2 (08:07→21:49)
[2018-11-19] MEDS: FLUTICASONE NASAL 120 SPRAYS/16 GM MDI EACHNARE SCH (08:07)
--- NOTE | 2018-11-19 09:23 | HOSPPROG ---
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 Had anastomotic leak with fecal peritonitis, s/p omental patch. Had fluid collection drained by IR, then bedside washout of clot. Also had thoracentesis with transudative fluid. # cecal volvulus s/p resection # anastomotic leak with fecal peritonitis s/p repeat OR for resection, omental patch # polymicrobial sepsis d/t peritonitis - cont zosyn, micafungin # phlegmon/loculated ascites -s/p fluid drainage from phlegmon - NGTD # intra-abdominal hematoma s/p beside evacuation/drain # wound dehiscence - wound vac (currently off) # rash - possibly d/t heat, also ?abx - will d/w ID - benadryl and hydrocort cream prn # ABLA, joana-operative; has not required a transfusion # chronic pain on continuous narcotics - cont dilaudid IV # acute urinary retention -grier place with > 1000cc retained; try to dc at some point # elevated LFTs - TPN, abx joana-hepatic inflammation # metabolic encephalopathy -very confused intermittently -now improved # FEN - TPN, Na better today after in creasing in TPN; on clears # acute on chronic hypoNa - stable currently; 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 # htn - cont home lisino # pleural effusions, likely transudative but no LDH drawn - likely diastolic dysfunction # suspected acute diastolic dysfunction - continue to follow her volume status Subjective: c/o itching on back Objective: Vital Signs Temp Pulse Resp BP Pulse Ox 37.1 C 89 16 145/91 H 94 11/19/18 08:00 11/19/18 08:00 11/19/18 08:00 11/19/18 08:00 11/19/18 08:00 Microbiology 11/15/18 09:52 Gram Stain - Final Abdomen - Aspirate 11/17/18 15:15 Gram Stain - Final Pleural Fluid - Aspirate Laboratory Results 11/19/18 05:20 11/19/18 05:20 11/18/18 11/19/18 11/20/18 05:59 05:59 05:59 Intake Total 1593 702 Output Total 2300 1425 Balance -707 -723 PT 15.5 SEC (12.0-15.0) H 11/14/18 02:53 INR 1.21 (0.83-1.16) H 11/14/18 02:53 high risk diagnoses (peritonitis) - Physical Exam Constitutional: uncomfortable Cardiovascular: regular rate and rhythym, no murmur, rub, or gallop Respiratory: no respiratory distress, no rales or rhonchi, clear to auscultation Gastrointestinal: other (gauze clean, distended, very TTP), No hepatosplenomegally Skin: other (follicular rash on back) ICD10 Worksheet Patient Problems: Problems Problem Status Onset Back pain Acute Diskitis Acute Hyponatremia Acute Abdominal pain Acute Volvulus Acute
--- NOTE | 2018-11-19 11:28 | PCMIDPN ---
Assessment/Plan: Assessment: Peritonitis secondary to polymicrobial valencia. Patient is covered currently with Zosyn and micafungin. Clinically she is doing fairly well. Having some flatus. Does not have an appetite. Is concerned about her abdominal distention which at this point seems normal given her complications with the volvulus and leak. No new issues are identified during this visit. Cultures of the peritoneal and pleural fluid are still not growing anything. Follicular rash on her back does not look like drug eruption. Plan: 1. Continue both the Zosyn and micafungin. 2. Follow cultures. 3. Follow clinical course and encourage patient to sit up and do more mobilization. 11/19/18 11:25 11/19/18 11:25 11/19/18 11:27 Subjective: Patient is resting in her hospital bed. She states that her abdomen still has discomfort and pain periodically. She does acknowledge having some bowel flatus. Denies any significant bowel movement. She is on TPN. Denies fever. Notes that there is a follicular rash on her back that is somewhat itchy. Objective: Zosyn # 11 Micafungin # 5 Vital Signs Temp Pulse Resp BP Pulse Ox 37.1 C 89 16 145/91 H 94 11/19/18 08:00 11/19/18 08:00 11/19/18 08:00 11/19/18 08:00 11/19/18 08:00 Microbiology 11/17/18 15:15 Gram Stain - Final Pleural Fluid - Aspirate 11/15/18 09:52 Gram Stain - Final Abdomen - Aspirate Laboratory Results 11/19/18 05:20 11/19/18 05:20 11/18/18 11/19/18 11/20/18 05:59 05:59 05:59 Intake Total 1593 702 Output Total 2300 1425 Balance -707 -723 - Physical Exam General Appearance: WD/WN, alert, no apparent distress, non-toxic Cardiac/Chest: regular rate, rhythm, No tachycardia Extremities: non-tender, normal inspection Abdomen: non-tender, soft, No mass Skin: normal color, warm/dry, rash Neuro/Psych: alert, normal mood/affect, oriented x 3 ICD10 Worksheet Patient Problems: Problems Problem Status Onset Abdominal pain Acute Hyponatremia Acute Volvulus Acute Back pain Acute Diskitis Acute
--- NOTE | 2018-11-19 16:03 | SOAPPROG ---
CHERRI Progress Note Assessment/Plan: Assessment: PATIENT STILL IN A LOT OF PAIN BUT AFEBRILE/HEMATOCRIT STABLE/WBC ELEVATED [address] TODAY REVEALS A STABLE SUBFASCIAL HEMATOMA AND LARGE PLEURAL EFFUSIONS ABDOMEN SOFT SLIGHTLY DISTENDED WITH SOME BOWEL SOUNDS. UPPER MIDLINE INCISION IS OPEN WITH A HEMATOMA DRAINAGE AND A SMALL AREA OF FASCIAL SEPARATION BUT NO SIGNIFICANT INTRA-ABDOMINAL COMMUNICATION OR DRAINAGE CHEST CLEAR COR REGULAR RHYTHM NO NEED FOR SURGERY TONIGHT BUT MAY NEED EVACUATION OF THAT SUBFASCIAL HEMATOMA OR AT LEAST IRRIGATION AND DRAINAGE OF THAT AREA. I WOULD BE CONCERNED ABOUT HER LARGE PLEURAL EFFUSIONS IN THE FACE OF A RISING WHITE COUNT AND SOME FEVER PREVIOUS PARACENTESIS RESULTS ARE PENDING Plan: CONSIDER THORACENTESIS IN THE A.M. 11/16/18 23:10 11/19/18 16:02 IMPROVING COMFORT LEVEL/AFEBRILE/URINE OUTPUT ADEQUATE/MIDLINE WOUND MINIMAL DRAINAGE OVERALL IMPROVED HOPEFULLY IMPROVING ORAL INTAKE CHEST AND ABDOMINAL CULTURES ARE NO GROWTH SO FAR/WHITE COUNT IS STILL ELEVATED 16 K Objective: Vital Signs Temp Pulse Resp BP Pulse Ox 36.7 C 86 17 150/97 H 95 11/19/18 15:11 11/19/18 15:11 11/19/18 15:11 11/19/18 15:11 11/19/18 15:11 Microbiology 11/17/18 15:15 Gram Stain - Final Pleural Fluid - Aspirate 11/15/18 09:52 Gram Stain - Final Abdomen - Aspirate Laboratory Results 11/19/18 05:20 11/19/18 05:20 11/18/18 11/19/18 11/20/18 05:59 05:59 05:59 Intake Total 1593 702 Output Total 2300 1425 Balance -707 -723 PT 15.5 SEC (12.0-15.0) H 11/14/18 02:53 INR 1.21 (0.83-1.16) H 11/14/18 02:53 ICD10 Worksheet Patient Problems: Problems Problem Status Onset Abdominal pain Acute Hyponatremia Acute Volvulus Acute Back pain Acute Diskitis Acute
[2018-11-19] MEDS: ENOXAPARIN 40 MG/0.4 ML SYR SC SCH (21:47)
[2018-11-19] MEDS: MELATONIN 3 MG TAB PO SCH (21:48)
[2018-11-19] MEDS: QUEtiapine FUMARATE 25 MG TAB PO SCH (21:48)
[2018-11-19] MEDS: TPN 1 EA BAG IV SCH (21:50)
[2018-11-20] MEDS: PIPERACILLIN/TAZO 3.375 GM/DEX 50 ML IV SCH ×4 (00:16→17:29)
[2018-11-20] MEDS: HYDROmorphONE/DILAUDID 1 MG/ML INJ IVP PRN ×7 (01:06→20:36)
[2018-11-20] MEDS: LEVOTHYROXINE 25 MCG TAB PO SCH (05:00)
[2018-11-20] MEDS: LORazepam 2 MG/ML INJ IVP PRN ×4 (05:02→20:43)
[2018-11-20 07:37] LABS: PLATELET COUNT 687 10^3/uL (150-400)
[2018-11-20] MEDS: MICAFUNGIN NA 100 MG in NS 100 ML IV SCH (08:46)
[2018-11-20] MEDS: SENNOSIDES/DOCUSATE SODIUM TAB PO SCH ×2 (08:53→20:39)
[2018-11-20] MEDS: VENLAFAXINE XR 150 MG CAP PO SCH ×2 (08:53→20:39)
[2018-11-20] MEDS: LISINOPRIL 10 MG TAB PO SCH (08:53)
[2018-11-20] MEDS: FLUTICASONE NASAL 120 SPRAYS/16 GM MDI EACHNARE SCH (08:56)
--- NOTE | 2018-11-20 10:17 | PCMIDPN ---
Assessment/Plan: Assessment: Peritonitis secondary to polymicrobial valencia. Patient is covered currently with Zosyn and micafungin. Clinically she is doing fairly well. Having some flatus. Does not have an appetite. No new issues at this point. Most recent cultures of the peritoneal and pleural fluid are still not growing anything. Plan: 1. Continue both the Zosyn and micafungin. 2. Follow cultures. 3. Follow clinical course and encourage patient to sit up and do more mobilization. Subjective: Patient is resting comfortably in her hospital bed. No new complaints. Still no appetite. Feels very weak and feels like the distance to the bathroom is enormous. No fevers or chills. Objective: Zosyn # 12 Micafungin # 6 Vital Signs Temp Pulse Resp BP Pulse Ox 36.8 C 93 20 152/98 H 96 11/20/18 08:00 11/20/18 08:00 11/20/18 08:00 11/20/18 08:00 11/20/18 08:00 Microbiology 11/17/18 15:15 Gram Stain - Final Pleural Fluid - Aspirate 11/15/18 09:52 Gram Stain - Final Abdomen - Aspirate Laboratory Results 11/20/18 06:29 11/20/18 06:29 11/19/18 11/20/18 11/21/18 05:59 05:59 05:59 Intake Total 702 3292 Output Total 1425 Balance -723 3292 - Physical Exam General Appearance: WD/WN, alert, no apparent distress, thin, non-toxic Respiratory: lungs clear, normal breath sounds, No respiratory distress Cardiac/Chest: regular rate, rhythm, No tachycardia Extremities: non-tender, normal inspection Abdomen: soft, distended, No non-tender Skin: normal color, warm/dry, No rash Neuro/Psych: alert, normal mood/affect, oriented x 3 ICD10 Worksheet Patient Problems: Problems Problem Status Onset Abdominal pain Acute Hyponatremia Acute Volvulus Acute Back pain Acute Diskitis Acute
--- NOTE | 2018-11-20 14:52 | SOAPPROG ---
SOAP Progress Note Assessment/Plan: Assessment: PATIENT STILL IN A LOT OF PAIN BUT AFEBRILE/HEMATOCRIT STABLE/WBC ELEVATED [address] TODAY REVEALS A STABLE SUBFASCIAL HEMATOMA AND LARGE PLEURAL EFFUSIONS ABDOMEN SOFT SLIGHTLY DISTENDED WITH SOME BOWEL SOUNDS. UPPER MIDLINE INCISION IS OPEN WITH A HEMATOMA DRAINAGE AND A SMALL AREA OF FASCIAL SEPARATION BUT NO SIGNIFICANT INTRA-ABDOMINAL COMMUNICATION OR DRAINAGE CHEST CLEAR COR REGULAR RHYTHM NO NEED FOR SURGERY TONIGHT BUT MAY NEED EVACUATION OF THAT SUBFASCIAL HEMATOMA OR AT LEAST IRRIGATION AND DRAINAGE OF THAT AREA. I WOULD BE CONCERNED ABOUT HER LARGE PLEURAL EFFUSIONS IN THE FACE OF A RISING WHITE COUNT AND SOME FEVER PREVIOUS PARACENTESIS RESULTS ARE PENDING Plan: CONSIDER THORACENTESIS IN THE A.M. 11/16/18 23:10 11/19/18 16:02 IMPROVING COMFORT LEVEL/AFEBRILE/URINE OUTPUT ADEQUATE/MIDLINE WOUND MINIMAL DRAINAGE OVERALL IMPROVED HOPEFULLY IMPROVING ORAL INTAKE CHEST AND ABDOMINAL CULTURES ARE NO GROWTH SO FAR/WHITE COUNT IS STILL ELEVATED 16 K 11/20/18 14:51 afebrile/ vs ok/ abd distended but soft with bs/ wound ok/ wbc still 16k slowly improving/ advance diet Objective: Vital Signs Temp Pulse Resp BP Pulse Ox 36.8 C 98 17 131/102 H 94 11/20/18 11:10 11/20/18 11:10 11/20/18 11:10 11/20/18 11:10 11/20/18 11:10 Microbiology 11/15/18 11:50 Blood Culture - Final Blood 11/17/18 15:15 Gram Stain - Final Pleural Fluid - Aspirate 11/15/18 09:52 Gram Stain - Final Abdomen - Aspirate Laboratory Results 11/20/18 06:29 11/20/18 06:29 11/19/18 11/20/18 11/21/18 05:59 05:59 05:59 Intake Total 702 3292 150 Output Total 1425 1 Balance -723 3292 149 PT 15.5 SEC (12.0-15.0) H 11/14/18 02:53 INR 1.21 (0.83-1.16) H 11/14/18 02:53 ICD10 Worksheet Patient Problems: Problems Problem Status Onset Abdominal pain Acute Hyponatremia Acute Volvulus Acute Back pain Acute Diskitis Acute
[2018-11-20] MEDS: HYDROCORTISONE 2.5% 30 GM CRTUBE TP PRN (15:22)
--- NOTE | 2018-11-20 15:54 | HOSPPROG ---
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 Had anastomotic leak with fecal peritonitis, s/p omental patch. Had fluid collection drained by IR, then bedside washout of clot. Also had thoracentesis with transudative fluid. # cecal volvulus s/p resection # anastomotic leak with fecal peritonitis s/p repeat OR for resection, omental patch # polymicrobial sepsis d/t peritonitis - cont zosyn, micafungin - overall stable to slow improvement today - checking AXR today # phlegmon/loculated ascites -s/p fluid drainage from phlegmon - NGTD # intra-abdominal hematoma s/p beside evacuation/drain # wound dehiscence - wound vac (currently off) # rash - d/t heat, not c/w drug eruption - benadryl and hydrocort cream prn # ABLA, joana-operative; has not required a transfusion # chronic pain on continuous narcotics - cont dilaudid IV # acute urinary retention -grier place with > 1000cc retained; try to dc at some point # elevated LFTs - TPN, abx joana-hepatic inflammation # metabolic encephalopathy -very confused intermittently -now improved # FEN - TPN, follow Na # acute on chronic hypoNa - stable currently; 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 # htn - cont home lisino # pleural effusions, likely transudative but no LDH drawn - likely diastolic dysfunction # suspected acute diastolic dysfunction - continue to follow her volume status Subjective: still with ongoing abd pain; seen with friends present Objective: Vital Signs Temp Pulse Resp BP Pulse Ox 36.8 C 97 17 153/96 H 92 11/20/18 15:16 11/20/18 15:16 11/20/18 15:16 11/20/18 15:16 11/20/18 15:16 Microbiology 11/15/18 11:50 Blood Culture - Final Blood 11/17/18 15:15 Gram Stain - Final Pleural Fluid - Aspirate 11/15/18 09:52 Gram Stain - Final Abdomen - Aspirate Laboratory Results 11/20/18 06:29 11/20/18 06:29 11/19/18 11/20/18 11/21/18 05:59 05:59 05:59 Intake Total 702 3292 150 Output Total 1425 1 Balance -723 3292 149 PT 15.5 SEC (12.0-15.0) H 11/14/18 02:53 INR 1.21 (0.83-1.16) H 11/14/18 02:53 - Time Spent With Patient Time Spent with Patient: greater than 25 minutes Time Spent with Patient: Greater than 25 minutes spent on this patients care, greater than 50% of time spent counseling, educating, and coordinating care regarding the above mentioned plan. - Physical Exam Constitutional: other (resting comfortable in bed) Cardiovascular: regular rate and rhythym, no murmur, rub, or gallop Respiratory: no respiratory distress, no rales or rhonchi, clear to auscultation Gastrointestinal: normoactive bowel sounds, distension, other (very TTP diffusely) ICD10 Worksheet Patient Problems: Problems Problem Status Onset Back pain Acute Diskitis Acute Hyponatremia Acute Abdominal pain Acute Volvulus Acute
[2018-11-20] MEDS: QUEtiapine FUMARATE 25 MG TAB PO SCH (20:39)
[2018-11-20] MEDS: MELATONIN 3 MG TAB PO SCH (20:39)
[2018-11-20] MEDS: ENOXAPARIN 40 MG/0.4 ML SYR SC SCH (20:46)
[2018-11-20] MEDS: TPN 1 EA BAG IV SCH (21:57)
[2018-11-21] MEDS: PIPERACILLIN/TAZO 3.375 GM/DEX 50 ML IV SCH ×5 (00:51→23:30)
[2018-11-21] MEDS: HYDROmorphONE/DILAUDID 1 MG/ML INJ IVP PRN ×10 (01:42→22:40)
[2018-11-21] MEDS: LORazepam 2 MG/ML INJ IVP PRN ×4 (04:21→20:45)
[2018-11-21 04:42] LABS: PLATELET COUNT 695 10^3/uL (150-400)
[2018-11-21 04:55] LABS: INR 1.09 (0.83-1.16); PROTIME(PATIENT) 14.3 SEC (12.0-15.0)
[2018-11-21] MEDS: LEVOTHYROXINE 25 MCG TAB PO SCH (07:49)
[2018-11-21] MEDS: MICAFUNGIN NA 100 MG in NS 100 ML IV SCH (08:26)
[2018-11-21] MEDS: SENNOSIDES/DOCUSATE SODIUM TAB PO SCH ×2 (08:27→20:49)
[2018-11-21] MEDS: LISINOPRIL 10 MG TAB PO SCH (08:27)
[2018-11-21] MEDS: VENLAFAXINE XR 150 MG CAP PO SCH ×2 (08:27→20:40)
[2018-11-21] MEDS: FLUTICASONE NASAL 120 SPRAYS/16 GM MDI EACHNARE SCH (08:29)
--- NOTE | 2018-11-21 09:31 | HOSPPROG ---
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 Had anastomotic leak with fecal peritonitis, s/p omental patch. Had fluid collection drained by IR, then bedside washout of clot. Also had thoracentesis with transudative fluid. She has continued, slow improvement. # cecal volvulus s/p resection # anastomotic leak with fecal peritonitis s/p repeat OR for resection, omental patch # polymicrobial sepsis d/t peritonitis - slightly lower WBC today and slight appetite - cont zosyn, micafungin - overall stable to slow improvement today - checking AXR today # phlegmon/loculated ascites -s/p fluid drainage from phlegmon - NGTD # intra-abdominal hematoma s/p beside evacuation/drain # wound dehiscence - wound vac (currently off) # rash - d/t heat, not c/w drug eruption - benadryl and hydrocort cream prn # ABLA, joana-operative; has not required a transfusion # chronic pain on continuous narcotics - cont dilaudid IV # acute urinary retention -grier place with > 1000cc retained; try to dc at some point when more mobile # elevated LFTs - TPN, abx joana-hepatic inflammation, zosyn # metabolic encephalopathy - much better since I have been seeing her # FEN - TPN, follow Na which is better today # acute on chronic hypoNa - stable currently; 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 # htn - cont home lisino # pleural effusions, likely transudative but no LDH drawn - likely diastolic dysfunction # suspected acute diastolic dysfunction - continue to follow her volume status Subjective: Requesting a meal today, actually feels a little hungry; abdomen still very tender Objective: Vital Signs Temp Pulse Resp BP Pulse Ox 36.8 C 93 18 132/93 H 96 11/21/18 07:16 11/21/18 07:16 11/21/18 07:16 11/21/18 08:27 11/21/18 07:16 Microbiology 11/15/18 21:22 Blood Culture - Final Blood 11/15/18 11:50 Blood Culture - Final Blood 11/17/18 15:15 Gram Stain - Final Pleural Fluid - Aspirate Laboratory Results 11/21/18 04:20 11/21/18 04:20 11/20/18 11/21/1819 05:59 05:59 05:59 Intake Total 3292 450 Output Total 1 Balance 3292 449 PT 14.3 SEC (12.0-15.0) 11/21/18 04:20 INR 1.09 (0.83-1.16) 11/21/18 04:20 High risk on IV narcotics - Physical Exam Constitutional: no apparent distress, appears nourished Ears, Nose, Mouth, Throat: moist mucous membranes, hearing normal Cardiovascular: regular rate and rhythym, no murmur, rub, or gallop, systolic murmur Respiratory: no respiratory distress, no rales or rhonchi, clear to auscultation Gastrointestinal: other (Distended; gauze clean; very tender to palpation diffusely; normal bowel sounds) ICD10 Worksheet Patient Problems: Problems Problem Status Onset Back pain Acute Diskitis Acute Hyponatremia Acute Abdominal pain Acute Volvulus Acute
--- NOTE | 2018-11-21 12:05 | SOAPPROG ---
SOAP Progress Note Assessment/Plan: Assessment: 63yo F s/p ex-lap, RHC for cecal volvulus s/p takeback for leak, re-anastomosis - continues to make progress. Did well over the weekend - pain: still using 1mg dilaudid every 2hrs, will add some PO, hopefully wean down that large IV dose - has good bowel sounds, superior dehisced site is closing, still draining bloody fluid - OOBTC, ambulate, said she will do 3 walks today - Continue the TPN for the time being. Wean hopefully later this week Plan: 11/03/18 09:06 11/08/18 09:49 11/08/18 09:53 11/11/18 09:32 11/12/18 09:14 11/13/18 10:20 11/14/18 14:17 11/15/18 16:20 11/17/18 14:33 11/18/18 17:00 11/21/18 12:03 Subjective: making progress Objective: Vital Signs Temp Pulse Resp BP Pulse Ox 36.8 C 93 18 132/93 H 96 11/21/18 07:16 11/21/18 07:16 11/21/18 07:16 11/21/18 08:27 11/21/18 07:16 Microbiology 11/15/18 21:22 Blood Culture - Final Blood 11/15/18 11:50 Blood Culture - Final Blood 11/17/18 15:15 Gram Stain - Final Pleural Fluid - Aspirate Laboratory Results 11/21/18 04:20 11/21/18 04:20 11/20/18 11/21/18 11/22/18 05:59 05:59 05:59 Intake Total 3292 450 Output Total 1 Balance 3292 449 PT 14.3 SEC (12.0-15.0) 11/21/18 04:20 INR 1.09 (0.83-1.16) 11/21/18 04:20 ICD10 Worksheet Patient Problems: Problems Problem Status Onset Abdominal pain Acute Hyponatremia Acute Volvulus Acute Back pain Acute Diskitis Acute
--- NOTE | 2018-11-21 15:08 | ASMTCMCOM ---
CM Note CM Note Notes: Patient plan of care discussed in am rounds. No longer has wound vac and TPN being weaned at this point. Per therapy she may benefit from HHC. CM to follow for needs. Plan: Likely to be able to dc with HHC when medically stable. Date Signed: 11/21/2018 03:07 PM Electronically Signed By:Sidra Zhang RN
--- NOTE | 2018-11-21 15:28 | PCMIDPN ---
Assessment/Plan: Assessment/Plan: * Peritonitis status post anastomotic leak post right colon resection for cecal volvulus: Cultures with polymicrobial enteric valencia including Mariann albicans. Slow clinical improvement with white blood cell count slightly decreased in perhaps starting to see plateau of thrombocytosis. Continue Zosyn and micafungin. * Increased alkaline phosphatase: Suspect this may be related to ongoing TPN. Less likely this is antibiotic associated. * Leukocytosis: Will continue to follow over time with anticipation should gradually normalize. * Thrombocytosis: Likely related to intra-abdominal infection with anticipation this should at some point plateau and then decrease back to normal value. 11/21/18 15:25 Subjective: Patient complains of epigastric pain and fatigue. Objective: Vital Signs Temp Pulse Resp BP Pulse Ox 36.8 C 95 18 136/90 H 92 11/21/18 07:16 11/21/18 12:00 11/21/18 12:00 11/21/18 12:00 11/21/18 12:00 Microbiology 11/17/18 15:15 Gram Stain - Final Pleural Fluid - Aspirate 11/15/18 09:52 Gram Stain - Final Abdomen - Aspirate 11/15/18 21:22 Blood Culture - Final Blood 11/15/18 11:50 Blood Culture - Final Blood Laboratory Results 11/21/18 04:20 11/21/18 04:20 11/20/18 11/21/18 11/22/18 05:59 05:59 05:59 Intake Total 3292 450 Output Total 1 Balance 3292 449 Zosyn # 13 Micafungin # 7 Laboratory Tests 11/21/18 04:20 Total Bilirubin 0.7 AST 35 ALT 60 H Alkaline Phosphatase 487 H Albumin 2.6 L - Physical Exam General Appearance: alert, no apparent distress, non-toxic EENT: No scleral icterus, No thrush, No conjunctival petechiae Respiratory: lungs clear, No respiratory distress Cardiac/Chest: regular rate, rhythm, No systolic murmur Extremities: No inflammation Abdomen: normal bowel sounds, distended (Mild), tender (Moderate diffusely) Skin: No rash - Line/s RUE PICC Lines: No drainage, No erythema ICD10 Worksheet Patient Problems: Problems Problem Status Onset Abdominal pain Acute Hyponatremia Acute Volvulus Acute Back pain Acute Diskitis Acute
[2018-11-21] MEDS: diphenhydrAMINE 25 MG CAP PO PRN (18:59)
[2018-11-21] MEDS: HYDROCORTISONE 2.5% 30 GM CRTUBE TP PRN (19:00)
[2018-11-21] MEDS: MELATONIN 3 MG TAB PO SCH (20:39)
[2018-11-21] MEDS: ENOXAPARIN 40 MG/0.4 ML SYR SC SCH (20:41)
[2018-11-21] MEDS: QUEtiapine FUMARATE 25 MG TAB PO SCH (20:41)
[2018-11-21] MEDS: TPN 1 EA BAG IV SCH (21:08)
[2018-11-22] MEDS: HYDROmorphONE/DILAUDID 1 MG/ML INJ IVP PRN ×6 (00:36→11:50)
[2018-11-22] MEDS: LORazepam 2 MG/ML INJ IVP PRN ×3 (04:47→20:38)
[2018-11-22] MEDS: HYDROCORTISONE 2.5% 30 GM CRTUBE TP PRN (04:47)
[2018-11-22] MEDS: diphenhydrAMINE 25 MG CAP PO PRN ×2 (04:47→19:54)
[2018-11-22] MEDS: PIPERACILLIN/TAZO 3.375 GM/DEX 50 ML IV SCH ×3 (06:11→17:53)
[2018-11-22 06:21] LABS: PLATELET COUNT 532 10^3/uL (150-400)
[2018-11-22] MEDS: LEVOTHYROXINE 25 MCG TAB PO SCH (06:33)
[2018-11-22] MEDS: MICAFUNGIN NA 100 MG in NS 100 ML IV SCH (09:09)
[2018-11-22] MEDS: LISINOPRIL 10 MG TAB PO SCH (09:10)
[2018-11-22] MEDS: VENLAFAXINE XR 150 MG CAP PO SCH ×2 (09:10→20:39)
--- NOTE | 2018-11-22 09:18 | PCMIDPN ---
Assessment/Plan: # Polymicrobial peritonitis s/p anastomotic leak following right colon resection 11/01/2018. Now s/p washout & ileocolonic resection, omental patch . Abdominal pain still quite bothersome and require IV pain meds, WBC much improved. Continued overall impression is very gradual clinical improvement. Peritoneal & pleural fluid unrevealing for another organisms. --continue micafungin, Zosyn --will plan stepdown to PO when eating adequately to complete abx therapy. May need imaging at some point. Will discuss w surgery # Pain control: defer to hospitalist Microbiology 11/17/18 Pleural fluid: no org; Cx NGTD 11/15/18 blood cx (2) Neg 11/15/18 Peritoneal fluid: 4+ PMNs, no org; cx: pending; WBC = 3800 (98%N): Cx NGTD 11/08/18 16:05 Abdomen - Aspirate Anaerobic Culture - Final Enterococcus Faecalis Escherichia Coli Enterobacter Cloacae Mariann Albicans 11/08/18 09:10 Blood Cx (2) Neg Meds (Abx #11 post washout) Zosyn 3.375gm IV q6h, #13 micafungin 100mg IV daily #7 Subjective: upset about getting IV pain med at 9am as opposed to when requested at 8am Objective: Vital Signs Temp Pulse Resp BP Pulse Ox 36.7 C 91 20 141/105 H 94 11/22/18 08:00 11/22/18 08:00 11/22/18 08:00 11/22/18 08:00 11/22/18 08:00 Microbiology 11/17/18 15:15 Gram Stain - Final Pleural Fluid - Aspirate 11/15/18 09:52 Gram Stain - Final Abdomen - Aspirate 11/15/18 21:22 Blood Culture - Final Blood Laboratory Results 11/22/18 06:10 11/22/18 06:10 11/21/18 11/22/18 11/23/18 05:59 05:59 05:59 Intake Total 450 2281 Output Total 1 Balance 449 2281 - Physical Exam General Appearance: alert, no apparent distress, thin, non-toxic Respiratory: other (shallow inspiration, decreased bs in bases), No accessory muscle use Neck: supple Cardiac/Chest: regular rate, rhythm Extremities: No pedal edema Abdomen: soft, other (diffuse discomfort to palpation) Skin: No rash Neuro/Psych: alert, normal mood/affect, oriented x 3 - Line/s RUE PICC Lines: No drainage, No erythema - Time Spent With Patient Time Spent with Patient: greater than 35 minutes Time Spent with Patient: Greater than 35 minutes spent on this patients care, greater than 50% of time spent counseling, educating, and coordinating care regarding the above mentioned plan. ICD10 Worksheet Patient Problems: Problems Problem Status Onset Abdominal pain Acute Hyponatremia Acute Volvulus Acute Back pain Acute Diskitis Acute
[2018-11-22] MEDS: SENNOSIDES/DOCUSATE SODIUM TAB PO SCH ×2 (10:19→20:55)
[2018-11-22] MEDS: FLUTICASONE NASAL 120 SPRAYS/16 GM MDI EACHNARE SCH (10:19)
--- NOTE | 2018-11-22 10:20 | SOAPPROG ---
SOAP Progress Note Assessment/Plan: Assessment: 63yo F s/p ex-lap, RHC for cecal volvulus s/p takeback for leak, re-anastomosis - VSS, HDs - WBC now 11, improving - abdomen is soft, has good bowel sounds. Has reg diet but doesnt really want to eat much. Encouraged her to start taking more PO. Friends will bring her some "edible" food today - ambulate - cont TPN until eating, hopefully only 1 more day - cont daily dressing changes to abdomen, superior site is closing - making progress Plan: 11/03/18 09:06 11/08/18 09:49 11/08/18 09:53 11/11/18 09:32 11/12/18 09:14 11/13/18 10:20 11/14/18 14:17 11/15/18 16:20 11/17/18 14:33 11/18/18 17:00 11/21/18 12:03 11/22/18 10:18 Subjective: upset that her pain meds were delayed this AM Objective: Vital Signs Temp Pulse Resp BP Pulse Ox 36.7 C 91 20 141/105 H 94 11/22/18 08:00 11/22/18 08:00 11/22/18 08:00 11/22/18 09:10 11/22/18 08:00 Microbiology 11/17/18 15:15 Gram Stain - Final Pleural Fluid - Aspirate 11/15/18 09:52 Gram Stain - Final Abdomen - Aspirate 11/15/18 21:22 Blood Culture - Final Blood Laboratory Results 11/22/18 06:10 11/22/18 06:10 11/21/18 11/22/18 11/23/18 05:59 05:59 05:59 Intake Total 450 2281 Output Total 1 Balance 449 2281 PT 14.3 SEC (12.0-15.0) 11/21/18 04:20 INR 1.09 (0.83-1.16) 11/21/18 04:20 ICD10 Worksheet Patient Problems: Problems Problem Status Onset Abdominal pain Acute Hyponatremia Acute Volvulus Acute Back pain Acute Diskitis Acute
--- NOTE | 2018-11-22 10:44 | HOSPPROG ---
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 Medicine has been consulted for management of hyponatremia. 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 Had anastomotic leak with fecal peritonitis, s/p omental patch. Had fluid collection drained by IR, then bedside washout of clot. Also had thoracentesis with transudative fluid. She has continued, slow improvement. cecal volvulus s/p resection 11/01 anastomotic leak with fecal peritonitis s/p repeat OR for resection, omental patch 11/10 # polymicrobial sepsis d/t peritonitis - slightly lower WBC today and slight appetite - cont zosyn, micafungin - overall stable to slow improvement today - bowel sounds present phlegmon/loculated ascites -s/p fluid drainage from phlegmon - NGTD intra-abdominal hematoma s/p beside evacuation/drain wound dehiscence - wound vac (currently off) rash - d/t heat, not c/w drug eruption - benadryl and hydrocort cream prn ABLA, joana-operative; has not required a transfusion chronic pain on continuous narcotics - cont dilaudid IV add scheduled oxycodone 5 q 3 acute urinary retention -grier place with > 1000cc retained; try to dc at some point when more mobile elevated LFTs - TPN, abx joana-hepatic inflammation, zosyn metabolic encephalopathy - much better since I have been seeing her a+O x 3 today FEN - TPN, follow Na which is better today acute on chronic hypoNa - stable currently; 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 case d/w dr luevano. limited po intake. liquid stool this AM Objective: Vital Signs Temp Pulse Resp BP Pulse Ox 36.7 C 91 20 141/105 H 94 11/22/18 08:00 11/22/18 08:00 11/22/18 08:00 11/22/18 09:10 11/22/18 08:00 Microbiology 11/17/18 15:15 Gram Stain - Final Pleural Fluid - Aspirate 11/15/18 09:52 Gram Stain - Final Abdomen - Aspirate 11/15/18 21:22 Blood Culture - Final Blood Laboratory Results 11/22/18 06:10 11/22/18 06:10 11/21/18 11/22/18 11/23/18 05:59 05:59 05:59 Intake Total 450 2281 Output Total 1 Balance 449 2281 PT 14.3 SEC (12.0-15.0) 11/21/18 04:20 INR 1.09 (0.83-1.16) 11/21/18 04:20 - Physical Exam Constitutional: no apparent distress, appears nourished Eyes: PERRL, anicteric sclera Ears, Nose, Mouth, Throat: moist mucous membranes, hearing normal Cardiovascular: regular rate and rhythym, no murmur, rub, or gallop Respiratory: no respiratory distress, no rales or rhonchi Gastrointestinal: other (mild distension, tender w/out rebound. bowel sounds present) Genitourinary: no bladder fullness, No grier in urethra Skin: warm, normal color Musculoskeletal: full muscle strength Neurologic: AAOx3 ICD10 Worksheet Patient Problems: Problems Problem Status Onset Abdominal pain Acute Hyponatremia Acute Volvulus Acute Back pain Acute Diskitis Acute
[2018-11-22] MEDS: oxyCODONE IR 5 MG TAB PO PRN (10:47)
[2018-11-22] MEDS: oxyCODONE IR 5 MG TAB PO SCH ×5 (11:11→20:39)
[2018-11-22] MEDS ORDERED: HYDROmorphONE/DILAUDID 2 MG/ML INJ IVP PRN (18:00)
[2018-11-22] MEDS: MELATONIN 3 MG TAB PO SCH (20:39)
[2018-11-22] MEDS: ENOXAPARIN 40 MG/0.4 ML SYR SC SCH (20:39)
[2018-11-22] MEDS: QUEtiapine FUMARATE 25 MG TAB PO SCH (20:39)
[2018-11-22] MEDS: TPN 1 EA BAG IV SCH (20:42)
[2018-11-23] MEDS: oxyCODONE IR 5 MG TAB PO SCH ×10 (00:03→23:13)
[2018-11-23] MEDS: PIPERACILLIN/TAZO 3.375 GM/DEX 50 ML IV SCH ×2 (00:25→05:30)
[2018-11-23] MEDS: HYDROmorphONE/DILAUDID 1 MG/ML INJ IVP PRN ×3 (01:02→09:52)
[2018-11-23] MEDS: diphenhydrAMINE 25 MG CAP PO PRN ×3 (03:53→21:16)
[2018-11-23] MEDS: LORazepam 2 MG/ML INJ IVP PRN (04:54)
[2018-11-23] MEDS: LEVOTHYROXINE 25 MCG TAB PO SCH (05:29)
[2018-11-23] MEDS: HYDROCORTISONE 2.5% 30 GM CRTUBE TP PRN (08:16)
--- NOTE | 2018-11-23 08:57 | PCMIDPN ---
Assessment/Plan: # Polymicrobial peritonitis s/p anastomotic leak following right colon resection 11/01/2018. Now s/p washout & ileocolonic resection, omental patch . Abdominal pain still quite bothersome and require IV pain meds, WBC much improved. Continued overall impression is very gradual clinical improvement. Peritoneal & pleural fluid unrevealing for another organisms. --switch to PO moxiflox + fluconazole, approximately 1 more week abx --will likely need repeat CT or Wednesday --check CBC in AM # Pain control: defer to hospitalist # Mild rash: likely related to contact w hospital bed, isolated to back Microbiology 11/17/18 Pleural fluid: no org; Cx NGTD 11/15/18 blood cx (2) Neg 11/15/18 Peritoneal fluid: 4+ PMNs, no org; cx: pending; WBC = 3800 (98%N): Cx NGTD 11/08/18 16:05 Abdomen - Aspirate Anaerobic Culture - Final Enterococcus Faecalis Escherichia Coli Enterobacter Cloacae Mariann Albicans 11/08/18 09:10 Blood Cx (2) Neg Meds (Abx #12 post washout) Zosyn 3.375gm IV q6h, #14 micafungin 100mg IV daily #8 Subjective: Small volume BMs partially liquid she would not characterize as diarrhea. still feels pain control not adequate at night Objective: Vital Signs Temp Pulse Resp BP Pulse Ox 37.1 C 100 16 152/96 H 95 11/23/18 07:18 11/23/18 07:18 11/23/18 07:18 11/23/18 07:18 11/23/18 07:18 Microbiology 11/17/18 15:15 Gram Stain - Final Pleural Fluid - Aspirate 11/15/18 09:52 Gram Stain - Final Abdomen - Aspirate Anaerobic Culture - Final Laboratory Results 11/22/18 06:10 11/23/18 05:35 11/22/18 11/23/18 11/24/18 05:59 05:59 05:59 Intake Total 2280 2056 1150 Balance 2280 2056 1150 General: appearing more vigorous than prior HEENT no oral ulcerations, lips dry CV: RRR (not tachy at my exam) Chest: clear B Abd: much improved distension, David drain at proximal portion of wound; incision open superficially with good granulation tissue in the base, no surrounding erythema, still diffuse discomfort to palpation. Bowel sound present Ext: no edema RUE PICC c/d/i Skin pallor; limited MP eruption on back - Time Spent With Patient Time Spent with Patient: greater than 35 minutes Time Spent with Patient: Greater than 35 minutes spent on this patients care, greater than 50% of time spent counseling, educating, and coordinating care regarding the above mentioned plan. ICD10 Worksheet Patient Problems: Problems Problem Status Onset Abdominal pain Acute Hyponatremia Acute Volvulus Acute Back pain Acute Diskitis Acute
[2018-11-23] MEDS: VENLAFAXINE XR 150 MG CAP PO SCH ×2 (09:43→21:09)
[2018-11-23] MEDS: LISINOPRIL 10 MG TAB PO SCH (09:44)
[2018-11-23] MEDS: FLUCONAZOLE 100 MG TAB PO SCH (09:44)
[2018-11-23] MEDS: SENNOSIDES/DOCUSATE SODIUM TAB PO SCH ×2 (09:45→21:11)
[2018-11-23] MEDS: MOXIFLOXACIN 400 MG TAB PO SCH (09:46)
[2018-11-23] MEDS: FLUTICASONE NASAL 120 SPRAYS/16 GM MDI EACHNARE SCH (09:48)
--- NOTE | 2018-11-23 10:34 | HOSPPROG ---
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 Medicine has been consulted for management of hyponatremia. 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 Had anastomotic leak with fecal peritonitis, s/p omental patch. Had fluid collection drained by IR, then bedside washout of clot. Also had thoracentesis with transudative fluid. She has continued, slow improvement. cecal volvulus s/p resection 11/01 anastomotic leak with fecal peritonitis s/p repeat OR for resection, omental patch 11/10 # polymicrobial sepsis d/t peritonitis - slightly lower WBC today and slight appetite - switched to moxifloxacin/fluconazole - overall stable to slow improvement today - bowel sounds present phlegmon/loculated ascites -s/p fluid drainage from phlegmon - NGTD intra-abdominal hematoma s/p beside evacuation/drain wound dehiscence - wound vac (currently off) rash - d/t heat, not c/w drug eruption - benadryl and hydrocort cream prn ABLA, joana-operative; has not required a transfusion chronic pain on continuous narcotics - cont dilaudid IV add scheduled oxycodone 5 q 3 acute urinary retention -grier place with > 1000cc retained; try to dc at some point when more mobile elevated LFTs - TPN, abx joana-hepatic inflammation, zosyn metabolic encephalopathy - much better since I have been seeing her a+O x 3 today FEN - will dc TPN after today's dose to encourage appetite acute on chronic hypoNa- stable currently; 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 eating eggs Objective: Vital Signs Temp Pulse Resp BP Pulse Ox 37.1 C 100 16 132/84 H 95 11/23/18 07:18 11/23/18 07:18 11/23/18 07:18 11/23/18 09:44 11/23/18 07:18 Microbiology 11/17/18 15:15 Gram Stain - Final Pleural Fluid - Aspirate 11/15/18 09:52 Gram Stain - Final Abdomen - Aspirate Anaerobic Culture - Final Laboratory Results 11/22/18 06:10 11/23/18 05:35 11/22/18 11/23/18 11/24/18 05:59 05:59 05:59 Intake Total 2280 2056 1150 Balance 2280 2056 1150 PT 14.3 SEC (12.0-15.0) 11/21/18 04:20 INR 1.09 (0.83-1.16) 11/21/18 04:20 - Physical Exam Constitutional: no apparent distress, appears nourished Eyes: PERRL, anicteric sclera Ears, Nose, Mouth, Throat: moist mucous membranes, hearing normal Cardiovascular: regular rate and rhythym, no murmur, rub, or gallop Respiratory: no respiratory distress, no rales or rhonchi Gastrointestinal: distension, No guarding, No rebound Genitourinary: no bladder fullness, No grier in urethra Skin: warm, normal color Musculoskeletal: full muscle strength, no muscle tenderness Neurologic: AAOx3 Psychiatric: interacting appropriately ICD10 Worksheet Patient Problems: Problems Problem Status Onset Abdominal pain Acute Hyponatremia Acute Volvulus Acute Back pain Acute Diskitis Acute
[2018-11-23] MEDS: oxyCODONE IR 5 MG TAB PO PRN ×2 (10:49→20:28)
[2018-11-23] MEDS: LORazepam 1 MG TAB PO PRN (13:33)
[2018-11-23] MEDS: MELATONIN 3 MG TAB PO SCH (21:10)
[2018-11-23] MEDS: QUEtiapine FUMARATE 25 MG TAB PO SCH (21:10)
[2018-11-23] MEDS: ENOXAPARIN 40 MG/0.4 ML SYR SC SCH (21:11)
[2018-11-24] MEDS: oxyCODONE IR 5 MG TAB PO SCH ×7 (02:36→19:32)
[2018-11-24 04:56] LABS: PLATELET COUNT 576 10^3/uL (150-400)
[2018-11-24] MEDS: LEVOTHYROXINE 25 MCG TAB PO SCH (05:01)
[2018-11-24] MEDS: VENLAFAXINE XR 150 MG CAP PO SCH ×2 (08:40→20:58)
[2018-11-24] MEDS: MOXIFLOXACIN 400 MG TAB PO SCH (08:40)
[2018-11-24] MEDS: FLUCONAZOLE 100 MG TAB PO SCH (08:40)
[2018-11-24] MEDS: LISINOPRIL 10 MG TAB PO SCH (08:40)
[2018-11-24] MEDS: SENNOSIDES/DOCUSATE SODIUM TAB PO SCH ×2 (08:43→20:59)
[2018-11-24] MEDS: oxyCODONE IR 5 MG TAB PO PRN (09:21)
[2018-11-24] MEDS: LORazepam 1 MG TAB PO PRN ×2 (09:41→19:39)
[2018-11-24] MEDS: FLUTICASONE NASAL 120 SPRAYS/16 GM MDI EACHNARE SCH (09:57)
--- NOTE | 2018-11-24 10:58 | HOSPPROG ---
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 Medicine has been consulted for management of hyponatremia. 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 Had anastomotic leak with fecal peritonitis, s/p omental patch. Had fluid collection drained by IR, then bedside washout of clot. Also had thoracentesis with transudative fluid. She has continued, slow improvement. cecal volvulus s/p resection 11/01 anastomotic leak with fecal peritonitis s/p repeat OR for resection, omental patch 11/10 # polymicrobial sepsis d/t peritonitis - slightly lower WBC today and slight appetite - switched to moxifloxacin/fluconazole - overall stable to slow improvement today - bowel sounds present phlegmon/loculated ascites -s/p fluid drainage from phlegmon - NGTD intra-abdominal hematoma s/p beside evacuation/drain wound dehiscence - wound vac (currently off) rash - d/t heat, not c/w drug eruption - benadryl and hydrocort cream prn ABLA, joana-operative; has not required a transfusion chronic pain on continuous narcotics - cont dilaudid IV home dose of narcotics was oxycodone 10 q 3 change scheduled po oxycodone q 4 w oxy and IV dilaudid for breakthrough FEN - will dc TPN after today's dose to encourage appetite acute on chronic hypoNa- stable currently; 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 htn - cont home lisino pleural effusions, likely transudative but no LDH drawn - likely diastolic dysfunction suspected acute diastolic dysfunction - continue to follow her volume status proph: enox Subjective: tearful and angry this AM about pain meds- was uncomfortable overnight and didnt get IV pain meds, for which she has orders. afebrile. tpn stopped. 70 minutes spent at bedside Objective: Vital Signs Temp Pulse Resp BP Pulse Ox 37.2 C 86 18 126/82 H 93 11/24/18 04:39 11/24/18 04:39 11/24/18 04:39 11/24/18 04:39 11/24/18 04:39 Microbiology 11/17/18 15:15 Gram Stain - Final Pleural Fluid - Aspirate Laboratory Results 11/24/18 04:46 11/24/18 04:46 11/23/18 11/24/18 11/25/18 05:59 05:59 05:59 Intake Total 2056 2249 Balance 2056 2249 PT 14.3 SEC (12.0-15.0) 11/21/18 04:20 INR 1.09 (0.83-1.16) 11/21/18 04:20 - Physical Exam Constitutional: no apparent distress Eyes: PERRL, anicteric sclera Ears, Nose, Mouth, Throat: moist mucous membranes, hearing normal Cardiovascular: regular rate and rhythym, no murmur, rub, or gallop Respiratory: no respiratory distress, no rales or rhonchi Gastrointestinal: normoactive bowel sounds, No guarding, No rebound Genitourinary: no bladder fullness, No grier in urethra Skin: warm, normal color Musculoskeletal: full muscle strength Neurologic: AAOx3 ICD10 Worksheet Patient Problems: Problems Problem Status Onset Abdominal pain Acute Hyponatremia Acute Volvulus Acute Back pain Acute Diskitis Acute
--- NOTE | 2018-11-24 11:58 | PCMIDPN ---
Assessment/Plan: # Polymicrobial peritonitis s/p anastomotic leak following right colon resection 11/01/2018. Now s/p washout & ileocolonic resection, omental patch . Continued recovery with normal WBC, more interactive. Still having fair amount of abdominal pain but abdominal exam much improved. Peritoneal & pleural fluid unrevealing for another organisms. Tolerating PO abx without side effects. --continue PO moxiflox + fluconazole, I sent outpatient Rx to pharmacy --repeat CT next week --f/u ID 12/06/18 at 3:30pm --WBC normalized, will cancel additional CBCs for now --FQ warnings added to DC paperwork --DC PICC line when discharged --call ID for additional questions while in house # Pain control: defer to hospitalist Microbiology 11/17/18 Pleural fluid: no org; Cx Neg 11/15/18 blood cx (2) Neg 11/15/18 Peritoneal fluid: 4+ PMNs, no org; Cx Neg 11/08/18 16:05 Abdomen - Aspirate Anaerobic Culture - Final Enterococcus Faecalis (FQ susceptible) Escherichia Coli Enterobacter Cloacae Mariann Albicans 11/08/18 09:10 Blood Cx (2) Neg Meds (Abx #13 post washout) moxifloxacin 400mg PO daily fluconazole 400mg PO daily Subjective: denies diarrhea Objective: Vital Signs Temp Pulse Resp BP Pulse Ox 36.6 C 83 16 131/87 H 94 11/24/18 11:56 11/24/18 11:56 11/24/18 11:56 11/24/18 11:56 11/24/18 11:56 Microbiology 11/17/18 15:15 Gram Stain - Final Pleural Fluid - Aspirate Laboratory Results 11/24/18 04:46 11/24/18 04:46 11/23/18 11/24/18 11/25/18 05:59 05:59 05:59 Intake Total 2056 2249 Balance 2056 2249 General: appearing more vigorous than prior HEENT no oral ulcerations, lips dry Abd: no distension, [place] drain at proximal portion of wound w serosang drainage on gauze; incision open superficially with good granulation tissue in the base, no surrounding erythema, still diffuse discomfort to palpation. Bowel sounds present Ext: no edema RUE PICC c/d/i Skin pallor No grier - Time Spent With Patient Time Spent with Patient: greater than 35 minutes (reviewed plan of care w patient and 2 friend at bedside) Time Spent with Patient: Greater than 35 minutes spent on this patients care, greater than 50% of time spent counseling, educating, and coordinating care regarding the above mentioned plan. ICD10 Worksheet Patient Problems: Problems Problem Status Onset Abdominal pain Acute Hyponatremia Acute Volvulus Acute Back pain Acute Diskitis Acute
--- NOTE | 2018-11-24 13:41 | SOAPPROG ---
SOAP Progress Note Assessment/Plan: Assessment: 63yo F s/p ex-lap, RHC for cecal volvulus s/p takeback for leak, re-anastomosis -WBC WNL, on PO abx - pain better, now on PO - needs to eat more - home in a few days Plan: 11/03/18 09:06 11/08/18 09:49 11/08/18 09:53 11/11/18 09:32 11/12/18 09:14 11/13/18 10:20 11/14/18 14:17 11/15/18 16:20 11/17/18 14:33 11/18/18 17:00 11/21/18 12:03 11/22/18 10:18 11/24/18 13:40 Subjective: feeling better Objective: Vital Signs Temp Pulse Resp BP Pulse Ox 36.6 C 83 16 131/87 H 94 11/24/18 11:56 11/24/18 11:56 11/24/18 11:56 11/24/18 11:56 11/24/18 11:56 Microbiology 11/17/18 15:15 Gram Stain - Final Pleural Fluid - Aspirate Anaerobic Culture - Final 11/08/18 16:05 Gram Stain - Final Abdomen - Aspirate Anaerobic Culture - Final Enterococcus Faecalis Escherichia Coli Enterobacter Cloacae Mariann Albicans Laboratory Results 11/24/18 04:46 11/24/18 04:46 11/23/18 11/24/18 11/25/18 05:59 05:59 05:59 Intake Total 2056 2249 Balance 2056 2249 PT 14.3 SEC (12.0-15.0) 11/21/18 04:20 INR 1.09 (0.83-1.16) 11/21/18 04:20 ICD10 Worksheet Patient Problems: Problems Problem Status Onset Abdominal pain Acute Hyponatremia Acute Volvulus Acute Back pain Acute Diskitis Acute
[2018-11-24] MEDS: HYDROmorphONE/DILAUDID 1 MG/ML INJ IVP PRN ×2 (14:33→21:14)
[2018-11-24] MEDS: MELATONIN 3 MG TAB PO SCH (20:58)
[2018-11-24] MEDS: QUEtiapine FUMARATE 25 MG TAB PO SCH (20:59)
[2018-11-24] MEDS: ENOXAPARIN 40 MG/0.4 ML SYR SC SCH (20:59)
[2018-11-25] MEDS: LORazepam 1 MG TAB PO PRN ×2 (00:02→22:09)
[2018-11-25] MEDS: oxyCODONE IR 5 MG TAB PO SCH ×7 (00:02→23:49)
[2018-11-25] MEDS: LEVOTHYROXINE 25 MCG TAB PO SCH (04:42)
[2018-11-25] MEDS: VENLAFAXINE XR 150 MG CAP PO SCH ×2 (09:48→22:08)
[2018-11-25] MEDS: LISINOPRIL 10 MG TAB PO SCH (09:48)
[2018-11-25] MEDS: FLUCONAZOLE 100 MG TAB PO SCH (09:48)
[2018-11-25] MEDS: SENNOSIDES/DOCUSATE SODIUM TAB PO SCH ×3 (09:49→22:09)
[2018-11-25] MEDS: MOXIFLOXACIN 400 MG TAB PO SCH (09:49)
[2018-11-25] MEDS: FLUTICASONE NASAL 120 SPRAYS/16 GM MDI EACHNARE SCH (09:55)
[2018-11-25] MEDS: HYDROmorphONE/DILAUDID 1 MG/ML INJ IVP PRN (12:04)
--- NOTE | 2018-11-25 12:36 | SOAPPROG ---
SOAP Progress Note Assessment/Plan: Assessment 63 y/o F s/p right hemicolectomy for cecal volvulus. s/p laparotomy c ileocolonic resection and peritoneal lavage for anastomotic leak S: Comfortable at the moment, but pain worsens with movement. Tolerating regular diet and having bowel function. O: Alert Afebrile WBC nl RRR ctab, no increased wob Abdomen: soft, mildly ttp, normoactive BS, wound well dressed Plan: Continue current pain med schedule. Hopefully d/c home with home care soon, once pt can take in adequate calories and hydration. 11/25/18 12:32 Objective: Vital Signs Temp Pulse Resp BP Pulse Ox 36.7 C 82 16 119/78 92 11/25/18 08:01 11/25/18 08:01 11/25/18 08:01 11/25/18 08:01 11/25/18 08:01 Microbiology 11/17/18 15:15 Gram Stain - Final Pleural Fluid - Aspirate Anaerobic Culture - Final 11/08/18 16:05 Gram Stain - Final Abdomen - Aspirate Anaerobic Culture - Final Enterococcus Faecalis Escherichia Coli Enterobacter Cloacae Mariann Albicans Laboratory Results 11/24/18 04:46 11/25/18 04:50 11/24/18 11/25/18 11/26/18 05:59 05:59 05:59 Intake Total 2250 1000 Output Total 4 Balance 2250 996 PT 14.3 SEC (12.0-15.0) 11/21/18 04:20 INR 1.09 (0.83-1.16) 11/21/18 04:20 ICD10 Worksheet Patient Problems: Problems Problem Status Onset Abdominal pain Acute Hyponatremia Acute Volvulus Acute Back pain Acute Diskitis Acute
--- NOTE | 2018-11-25 12:48 | HOSPPROG ---
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 Medicine has been consulted for management of hyponatremia. 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 Had anastomotic leak with fecal peritonitis, s/p omental patch. Had fluid collection drained by IR, then bedside washout of clot. Also had thoracentesis with transudative fluid. She has continued, slow improvement. cecal volvulus s/p resection 11/01 anastomotic leak with fecal peritonitis s/p repeat OR for resection, omental patch 11/10 # polymicrobial sepsis d/t peritonitis - slightly lower WBC today and slight appetite - switched to moxifloxacin/fluconazole phlegmon/loculated ascites -s/p fluid drainage from phlegmon - NGTD intra-abdominal hematoma s/p beside evacuation/drain wound dehiscence - wound vac (currently off) acute on chronic hyponatremia - stable currently with Na low 130's; 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 - likely needs solute, discussed with pt rash - d/t heat, not c/w drug eruption - benadryl and hydrocort cream prn ABLA, joana-operative; has not required a transfusion, hgb stable today chronic pain on continuous narcotics, reported home dose of narcotics was oxycodone 10 q 3 (though home med rec states 10 mg TID prn) was changed to scheduled po oxycodone 4h with IV dilaudid for breakthrough, no change today given this was an emotional issue for her yest and now pain controlled FEN - off TPN, taking po better htn - cont home lisinopril pleural effusions, likely transudative but no LDH drawn - likely diastolic dysfunction suspected acute diastolic dysfunction - continue to follow her volume status proph: Lovenox dispo: possibly home in 1-2 days, surgery is primary Subjective: Pt feels better. Pain is better controlled today. No N/V. Tolerating some po, eating a little better. No fevers. Objective: Vital Signs Temp Pulse Resp BP Pulse Ox 36.7 C 88 16 136/105 H 94 11/25/18 12:36 11/25/18 12:36 11/25/18 12:36 11/25/18 12:36 11/25/18 12:36 Microbiology 11/17/18 15:15 Gram Stain - Final Pleural Fluid - Aspirate Anaerobic Culture - Final 11/08/18 16:05 Gram Stain - Final Abdomen - Aspirate Anaerobic Culture - Final Enterococcus Faecalis Escherichia Coli Enterobacter Cloacae Mariann Albicans Laboratory Results 11/24/18 04:46 11/25/18 04:50 11/24/18 11/25/18 11/26/18 05:59 05:59 05:59 Intake Total 2250 1000 Output Total 4 Balance 2250 996 PT 14.3 SEC (12.0-15.0) 11/21/18 04:20 INR 1.09 (0.83-1.16) 11/21/18 04:20 - Physical Exam Constitutional: no apparent distress Eyes: PERRL Ears, Nose, Mouth, Throat: moist mucous membranes Cardiovascular: regular rate and rhythym Respiratory: no respiratory distress, clear to auscultation Gastrointestinal: normoactive bowel sounds, soft, non-tender abdomen Skin: warm Musculoskeletal: full muscle strength Neurologic: AAOx3 Psychiatric: interacting appropriately ICD10 Worksheet Patient Problems: Problems Problem Status Onset Abdominal pain Acute Hyponatremia Acute Volvulus Acute Back pain Acute Diskitis Acute
--- NOTE | 2018-11-25 14:27 | ASMTCMCOM ---
CM Note CM Note Notes: Met with patient to review needs for HHC services. She has no preference for HHC. Prescription for hospital bed provided with list of medical supply companies.referrals placed for HHC. CM to follow for needs. Plan: Home with HHC. Date Signed: 11/25/2018 02:26 PM Electronically Signed By:Sidra Zhang RN
[2018-11-25] MEDS: QUEtiapine FUMARATE 25 MG TAB PO SCH (22:10)
[2018-11-25] MEDS: ENOXAPARIN 40 MG/0.4 ML SYR SC SCH (22:10)
[2018-11-25] MEDS: MELATONIN 3 MG TAB PO SCH (22:10)
[2018-11-26] MEDS ORDERED: MOXIFLOXACIN 400 MG TAB PO SCH
[2018-11-26] MEDS: LEVOTHYROXINE 25 MCG TAB PO SCH (04:20)
[2018-11-26] MEDS: oxyCODONE IR 5 MG TAB PO SCH ×3 (04:20→12:05)
[2018-11-26 08:57] VITALS: BP 118/74
[2018-11-26] MEDS: FLUCONAZOLE 100 MG TAB PO SCH (09:35)
[2018-11-26] MEDS: LISINOPRIL 10 MG TAB PO SCH (09:36)
[2018-11-26] MEDS: SENNOSIDES/DOCUSATE SODIUM TAB PO SCH (09:36)
[2018-11-26] MEDS: VENLAFAXINE XR 150 MG CAP PO SCH (09:37)
[2018-11-26] MEDS: MOXIFLOXACIN 400 MG TAB PO SCH (09:37)
[2018-11-26] MEDS: LORazepam 1 MG TAB PO PRN (10:33)
--- NOTE | 2018-11-26 10:57 | PDIAF ---
- Diagnosis Diagnosis: cecal volvulus Code Status: Full Code - Medication Management Discharge Medications: electronically signed and located in the Home Medication List. - Orders Services needed: Home Care, Registered Nurse Home Care Face to Face: I certify that this patient was under my care and that I had the required [id number] encounter meeting the encounter requirements on the discharge day. My findings support the fact that the patient is homebound as defined in Home Care Face to Face Continued: CMS Chapter 7 Medicare Benefits Manual 30.1.1 , The condition of the patient is such that there exists a normal inability to leave home and consequently, leaving home would require a considerable and taxing effort. Diet Recommendation: no restrictions on diet Diet Texture: Regular Texture Diet Additional Instructions: You should stop taking your spironolactone when you get home. You will need to see your PCP to follow up on this. You should have your sodium checked with a blood test in a week. No lifting over 15 lbs. Ok to shower. Avoid baths/pools. Leave the dressing on for the shower, change to clean dressing after bathing. Possible side effects of moxifloxacin, including photosensitivity and interaction with cations including calcium, zinc and magnesium. Take with small amount food to minimize risk of nausea and avoid significant sun exposure by wearing hat, sunscreen. Levaquin and other antibiotics in this class have been associated with VERY RARE but disabling and potentially irreversible serious adverse reactions that have occurred together, including tendinitis and tendon rupture, peripheral neuropathy, and confusion. Discontinue immediately if you develop a serious reaction and call our office. - Follow Up Care Current Providers and Referrals: Phuc Ji MD [Primary Care Provider] - As per Instructions Aide Britton MD [Medical Doctor] - 12/06/18 3:30 pm Antonino Bragg MD [Medical Doctor] - follow up in 2 weeks (Call my office this week to schedule your CT scan for end of the week)
--- NOTE | 2018-11-26 11:47 | ASMTLACE ---
LACE Length of stay for Answers: 14 days or more current admission Acuity / Level of Answers: Yes Care: Did the patient have an inpatient admission? Comorbidities - select Answers: Opioid dependence all that apply / Chronic pain Other Notes: Hypothyroid; HTN # of Emergency department Answers: 1-2 visits in the last 6 months Social determinants Answers: Mental health diagnosis (anxiety, depression, pers onality disorders, etc.) Score: 19 Date Signed: 11/26/2018 11:46 AM Electronically Signed By:ZULMA Reardon
[2018-11-26] MEDS: FLUTICASONE NASAL 120 SPRAYS/16 GM MDI EACHNARE SCH (12:06)
--- NOTE | 2018-11-26 13:01 | PDDCSUM ---
Discharge Summary Discharge Summary: DISCHARGE SUMMARY Date of Admission November 01, 2018 Date of Discharge November 26, 2018 DISCHARGE DIAGNOSES -cecal volvulus status post open right hemicolectomy - anastomotic leak status post take back washout resection and reanastomosis -acute on chronic hyponatremia -chronic pain -fascial dehiscence HOSPITAL COURSE The patient was admitted from the ED and taken to the operating room where they underwent an uneventful right hemicolectomy for cecal volvulus. I postoperative day 8, she developed worsening abdominal pain repeat CT scan at that time showed new intra-abdominal free air and fluid. She was subsequently taken back to the operating room for exploratory laparotomy or leak was identified. This was subsequently resected and reanastomosed. She had a prolonged hospital course, had drainage of a fluid collection, had very slow return of bowel function and was on TPN. She subsequently had slow return of bowel function, her white blood cell count normalized, she had multiple CT scans throughout her hospitalization. She had a small dehiscence of the fascia at the superior portion of her surgical site, this was treated conservatively and was healing on the day of discharge. She was subsequently discharged home with home health in stable condition on the afternoon of the DISCHARGE MEDICATIONS Moxifloxacin and fluconazole per Dr. Britton of Infectious Disease Oxycodone All other home medications restarted DISPOSITION Home with home health FOLLOW UP Repeat CT scan of the abdomen and pelvis next week Follow-up with Tobion the Follow up with me in the office in 14 days for a general post-operative visit
--- NOTE | 2018-11-26 14:05 | ASMTDCNOTE ---
Case Management Discharge Discharge Order Complete? Answers: Yes Patient to Obtain Answers: via Family Medications Transportation Arranged Answers: Family/Friends Family Notified Answers: Yes Discharge Comments Notes: Pt discharged home today with her and [facility]/RN. Notified [facility] and sent referral via LIA. Date Signed: 11/26/2018 02:04 PM Electronically Signed By:ZULMA Reardon
--- NOTE | 2018-11-27 09:52 | ASDISCHSUM ---
Discharge Information Plan Status:Home with Home Health Medically Cleared to Leave: Discharge Date:11/26/2018 01:19 PM CM D/C Disposition: ADT D/C Disposition:Home Health Service Projected Discharge Date:11/26/2018 11:00 AM Transportation at D/C: Discharge Delay Reason: Follow-Up Date:11/26/2018 11:00 AM Discharge Slot: Final Diagnosis: Placement Information Referral Type:*Home Health Care Services Referral ID:[id number] Provider Name:[facility] Address 1:[address] Address 2: City:[place] Selection Factors: State:[place] Patient Contact Information Contact Name:ELEANOR Relationship:Daughter Address: Work Phone: City:[place] Alternate Phone: [facility] Code:[place] Email: Financial Information Financial Class:BC Primary Plan Desc:[employer] Primary Plan Number:[id number] Secondary Plan Desc: Secondary Plan Number: Assessment Information LACE LACE Length of stay for Answers: 14 days or more current admission Acuity / Level of Answers: Yes Care: Did the patient have an inpatient admission? Comorbidities - select Answers: Opioid dependence all that apply / Chronic pain Other Notes: Hypothyroid; HTN # of Emergency department Answers: 1-2 visits in the last 6 months Social determinants Answers: Mental health diagnosis (anxiety, depression, pers onality disorders, etc.) Score: 19 Date Signed: 11/26/2018 11:46 AM Electronically Signed By:ZULMA Reardon [facility] Initial CM Assessment Living Arrangements What is your living Answers: With Partner arrangement? Who do you live with? Type Of Residence What kind of residence do Answers: House you live in? Discharge Plan Comments Coordination Status Comments Notes: Patient is a 63yo female who was admitted for chronic abdominal discomfort, bowel obstruction due to cecal volvulus. She will go for exploratory laparotomy with a lysis of adhesions and possible cecal resection. No therapies ordered. Patient will most likely d/c independently. CM available if d/c needs arise. Date Signed: 11/02/2018 12:13 PM Electronically Signed By:Denice Fletcher LCSW [facility] CM Progress Note CM Note CM Note Notes: Spoke with Dr. Contreras regarding patient and he thinks she will d/c independently. No therapies were ordered for patient.CM is available if d/c needs arise. Date Signed: 11/04/2018 03:03 PM Electronically Signed By:Denice Fletcher LCSW [facility] CM Progress Note CM Note CM Note Notes: Pt continues to have medical needs. Back to surgery today. CM to follow if needs arise. Plan: TBD after surgery. Likely independent. Date Signed: 11/08/2018 03:52 PM Electronically Signed By:DERRICK Lundberg [facility] CM Progress Note CM Note CM Note Notes: Patient plan of care reviewed in interdisciplinary rounds. 63 year old female s/p abdominal surgery for volvulus and subsequent surgery for anastomosis leak now with wound vac. CM to follow for needs, Wound vac to be changed tomorrow. Plan: TBD Date Signed: 11/09/2018 01:35 PM Electronically Signed By:Sidra Zhang RN [facility] CM Progress Note CM Note CM Note Notes: Patient plan of care reviewed in am round. She is recovering from her surgery for volvulus then secondarily to anastomosis leak, Wound vac in place. To start TPN. CM to follow for needs. Plan: TBD Date Signed: 11/10/2018 04:54 PM Electronically Signed By:Sidra Zhang RN [facility] CM Progress Note CM Note CM Note Notes: OT and PT evals completed; they have recommended no services following d/c. They both indicated pt may need support from family. CM will follow. D/C Plan: Anticipate independent. Date Signed: 11/11/2018 03:17 PM Electronically Signed By:Autumn Phillips [facility] CM Progress Note CM Note CM Note Notes: Patient plan of care reviewed in am rounds. Probable pancreatitis after bowel surgery. ID consulted to help manage microbiology. TPN for nutrition. Wound vac in place. Will need extended stay to manage her medical needs. CM to follow for needs. Plan: Remains TBD Date Signed: 11/15/2018 02:16 PM Electronically Signed By:Sidra Zhang RN [facility] CM Progress Note CM Note CM Note Notes: Plan of care reviewed in am rounds. Patient had CT results pending. Electrolytes adjusted per pharmacy for TPN. Wound care following. CM to follow for needs. Plan: TBD Date Signed: 11/16/2018 03:06 PM Electronically Signed By:Sidra Zhang RN [facility] CM Progress Note CM Note CM Note Notes: Pt experiencing slightly less abdominal pain, still having flatus. Continues on Zosyn abd Micafungin IV. CM will follow for needs. D/C Plan: Anticipate independent. Date Signed: 11/18/2018 02:32 PM Electronically Signed By:Autumn Phillips [facility] Progress Note CM Note CM Note Notes: Patient plan of care discussed in am rounds. No longer has wound vac and TPN being weaned at this point. Per therapy she may benefit from HHC. CM to follow for needs. Plan: Likely to be able to dc with HHC when medically stable. Date Signed: 11/21/2018 03:07 PM Electronically Signed By:Sidra Zhang RN [facility] CM Progress Note CM Note CM Note Notes: Met with patient to review needs for HHC services. She has no preference for HHC. Prescription for hospital bed provided with list of medical supply companies.referrals placed for HHC. CM to follow for needs. Plan: Home with HHC. Date Signed: 11/25/2018 02:26 PM Electronically Signed By:Sidra Zhang RN Case Management Discharge Plan Note Case Management Discharge Discharge Order Complete? Answers: Yes Patient to Obtain Answers: via Family Medications Transportation Arranged Answers: Family/Friends Family Notified Answers: Yes Discharge Comments Notes: Pt discharged home today with her and [facility]/RN. Notified [facility] and sent referral via [email or web address]. Date Signed: 11/26/2018 02:04 PM Electronically Signed By:ZULMA Reardon Intervention Information Intervention Type:*Incorrect Registration Date of Service:11/02/2018 09:46 AM Patient Type:Inpatient Staff Member:ALBERTO Fofana, Leelee Hours: Discipline: Severity: Comment:
--- NOTE | 2018-11-28 16:23 | GPROG ---
[f rep st] PROGRESS NOTE POST-ANESTHESIA RECORD The patient was taken to the recovery room in stable condition. Pain and postop nausea and vomiting were well controlled. The patient was mildly sleepy, but able to participate in the evaluation. Res piratory status and cardiovascular status were similar to preop condition. No anesthetic complicatio ns were noted at the time. /[id number]/MODL
== END 2018-11-26 13:19 | disposition home health service (06) | DRG 329 ==
LOC: OBSVTOIN 19:44 → F2N 11-02 03:15 → F1N 11-02 13:52
PROVIDERS: ADMIT Surgery; ATTEND Surgery
PROC: 0DBF0ZZ Excision of Right Large Intestine, Open Approach (ICD-10-PCS; principal; 2018-11-01 19:30)
PROC: 3E0S3NZ Introduction of Analgesics, Hypnotics, Sedatives into Epidural Space, Percutaneous Approach (ICD-10-PCS; 2018-11-02)
PROC: 0DQU0ZZ Repair Omentum, Open Approach (ICD-10-PCS; 2018-11-08)
PROC: 2W13X6Z Compression of Abdominal Wall using Pressure Dressing (ICD-10-PCS; 2018-11-08)
PROC: 3E1M38Z Irrigation of Peritoneal Cavity using Irrigating Substance, Percutaneous Approach (ICD-10-PCS; 2018-11-08)
PROC: 0DBF0ZZ Excision of Right Large Intestine, Open Approach (ICD-10-PCS; 2018-11-08)
PROC: 3E0436Z Introduction of Nutritional Substance into Central Vein, Percutaneous Approach (ICD-10-PCS; 2018-11-10)
PROC: 02HV33Z Insertion of Infusion Device into Superior Vena Cava, Percutaneous Approach (ICD-10-PCS; 2018-11-10)
PROC: 0W9G3ZZ Drainage of Peritoneal Cavity, Percutaneous Approach (ICD-10-PCS; 2018-11-15)
PROC: 0W993ZZ Drainage of Right Pleural Cavity, Percutaneous Approach (ICD-10-PCS; 2018-11-17)
DX: K56.2 Volvulus (principal); E87.1 Hypo-osmolality and hyponatremia; K91.89 Other postprocedural complications and disorders of digestive system; K63.1 Perforation of intestine (nontraumatic); T81.43XA Infection following a procedure, organ and space surgical site, initial encounter; T81.44XA Sepsis following a procedure, initial encounter; K65.9 Peritonitis, unspecified; B95.2 Enterococcus as the cause of diseases classified elsewhere; B96.20 Unspecified Escherichia coli [E. coli] as the cause of diseases classified elsewhere; B96.89 Other specified bacterial agents as the cause of diseases classified elsewhere; B37.89 Other sites of candidiasis; E87.79 Other fluid overload; J90 Pleural effusion, not elsewhere classified; R18.8 Other ascites; T81.31XA Disruption of external operation (surgical) wound, not elsewhere classified, initial encounter; L76.32 Postprocedural hematoma of skin and subcutaneous tissue following other procedure; D62 Acute posthemorrhagic anemia; G89.18 Other acute postprocedural pain; Z79.891 Long term (current) use of opiate analgesic; R21 Rash and other nonspecific skin eruption; R33.9 Retention of urine, unspecified; F41.9 Anxiety disorder, unspecified; F32.9 Major depressive disorder, single episode, unspecified; E03.9 Hypothyroidism, unspecified; Z86.73 Personal history of transient ischemic attack (TIA), and cerebral infarction without residual deficits; Z96.653 Presence of artificial knee joint, bilateral; Z98.1 Arthrodesis status
CPT/HCPCS: 82435-PO; 82565-PO; 82947-PO; 84132-PO; 84295-PO; 84484-ER; 84520-PO; 85014-ER; 96365; 97110-GP; 97116-GP; 97161-GP; 97162-GP; 97165-GO; 97166-GO; 97530-GP; 97535-GO; C1751; J0360; J0694; J1100; J1170; J1450; J1650; J1885; J1940; J2001; J2060; J2248; J2250; J2270; J2405; J2543; J2704; J2765; J2780; J2997; J3010; J3475; J3480; J7613; P9041; Q9967

== ENCOUNTER → 2018-12-02 | Outpatient (CLI) | payer OTHER ==
[~2018-12-02] MED LIST changes: -GADOBUTROL 10 ML VIAL IVP ONE; +IOPAMIDOL (ISOVUE-300) 100 ML BTL ONE
== END ==
LOC: CIMAGING 14:23
PROVIDERS: ATTEND Surgery
DX: K91.872 Postprocedural seroma of a digestive system organ or structure following a digestive system procedure (principal); J90 Pleural effusion, not elsewhere classified
CPT/HCPCS: 74177-PO; Q9967

== ENCOUNTER → 2019-01-16 | Outpatient (CLI) | payer OTHER | LOC: FIMAGING 14:16 | PROVIDERS: ATTEND Surgery | DX: M79.605 Pain in left leg (principal); M79.89 Other specified soft tissue disorders; Z79.899 Other long term (current) drug therapy | CPT/HCPCS: Q9967 ==